=== PATIENT | female | born 1940 | race Caucasian/White ===

== ENCOUNTER 2021-04-06 15:00 | Outpatient (RCR) | payer MEDICARE, SELFPAY ==
--- NOTE | 2021-02-18 16:17 | MHC.PT.EP ---
[facility] [place] Office [place] Office [place] Office [address] Chen Nguyen [address] [phone] F: [phone] F: [phone] F: [phone] F: [phone] Physical Therapy Plan of Care Date of Evaluation: Date of Surgery: N/A Diagnosis: diabetes mellitus with advanced peripheral neuropathy gait and balance training Assessment: pt w/ subjective reports of B LE pain, numbness, and tingling secondary to DM II. pt also presents w/ significant weakness and poor functional mobility secondary to lack of physical activity. pt w/ a history of frequent falls secondary to circumstance and poor balance. pt presents to physical therapy with pain, decreased range of motion, decreased strength, impaired functional mobility, impaired postural awareness, and gait deviations. pt is a fair candidate for skilled PT due to age, potential remediation of impairments, typical disease/condition progression and prognosis, comorbidities, and motivation. pt would benefit from tailored strengthening and stretching exercise program, functional training, gait training, postural re-training, neuromuscular re-education, modalities as needed for pain, equipment safety demonstration. Frequency and Duration: The patient will be seen 2x/wk for 5 wks Short Term Goals: pt will be I w/ HEP to promote self-management of condition. pt will improve B quad strength by 1 MMT grade to promote ease in sit to stand transfer from sitting surface. pt will participate in 5xSTS and TUG to determine baseline fall risk severity. [employer] Worker Goals: pt will ambulate 5x50' to promote household ambulatory distances w/ LRAD. pt will perform STS transfer to LRAD mod I to promote functional independence. Treatment Plan: Modalities to reduce pain, spasms and effusion. Manual therapy to restore motion and function. Therapeutic exercise to improve strength and flexibility. Neuromuscular re-education for posture and balance. Therapeutic activities to return to functional activities of daily living. Electronically signed by: Gretchen Solano PT, DPT Please sign and return to therapist. Thank you for your referral.
--- NOTE | 2021-04-29 09:36 | MHC.PT.DC ---
[facility] [place] Office [place] Office [place] Office [address] Chen Nguyen 140 [facility] [phone] F: [phone] F: [phone] F: [phone] F: [phone] Physical Therapy Discharge Report Diagnosis: diabetes mellitus with advanced peripheral neuropathy gait and balance training Date of Surgery: N/A Date of Evaluation: 02/18/21 Date of Discharge: 04/29/21 Treatments to Date: 8 Cancellations to Date: 5 No Shows to Date: 2 Discharge Status: Visit Non-compliance Discharge Summary: The patient was starting to notice an improvement in her functional mobility. She would have poor carryover of transfer training techniques and gait mechanics from session to session. She required frequent cueing for sequencing and avoiding plopping back into the chair. She has not been seen in this office for several weeks as a result of many cancellations and no shows. She is discharged from this plan of care due to [facility]'s attendance policy. Electronically signed by: Gretchen Solano PT, DPT Please sign and return to therapist. Thank you for your referral.
== END 2021-04-29 09:36 | disposition home or self-care (01) ==
LOC: HO.PT 15:00
PROVIDERS: PCP Internal Medicine Pulmonary Disease; Visit Provider Psychiatry & Neurology Neurology
DX: E11.42 Type 2 diabetes mellitus with diabetic polyneuropathy (principal)
CPT/HCPCS: 97110; 97112; 97116; 97162; 97530

== ENCOUNTER 2021-07-06 13:20 | Outpatient (REF) | payer MEDICARE, SELFPAY ==
[2021-07-06 16:15] LABS: Hemoglobin 12.9 g/dl (12.0-16.0); Mean Corpuscular HGB Conc 32.3 g/dl (31.0-35.0); Mean Corpuscular Hemoglobin 29.1 pg (27.0-33.0); Mean Corpuscular Volume 90.3 fL (80.0-98.0); Mean Platelet Volume 11.3 fL (9.4-12.3); Platelet Count 248 X10*3/uL (160-400); Red Blood Count 4.43 X10*6/uL (4.20-5.50); Red Cell Distribution Width 14.1 % (11.0-16.0); White Blood Count 6.7 X10*3/uL (4.8-10.8)
[2021-07-06 16:23] LABS: Estimated Average Glucose 137 mg/dL; Hemoglobin A1c % 6.4 %
[2021-07-06 16:28] LABS: Alanine Aminotransferase 15 U/L (0-31); Albumin Level 3.9 g/dL (3.5-5.0); Alkaline Phosphatase 86 U/L (39-117); Anion Gap 14 (12-20); Aspartate Amino Transferase 21 U/L (5-31); Bilirubin Total 0.9 mg/dL (0.0-1.0); Blood Urea Nitrogen 29 mg/dL (9-16); Carbon Dioxide 26 mmol/L (22-29); Chloride 102 mmol/L (96-108); Cholesterol 219 mg/dL; Estimated Glomerular Filt Rate 34; Glucose Fasting 120 mg/dL (60-99); HDL Cholesterol 51 mg/dL; LDL Cholesterol Calculated 139 mg/dl; Potassium 3.5 mmol/L (3.3-5.1); Sodium 138 mmol/L (135-145); Triglycerides 147 mg/dL
[2021-07-06 16:49] LABS: TSH reflex Free T4 0.85 uIU/mL (0.32-4.0)
== END 2021-07-06 13:21 | disposition home or self-care (01) ==
LOC: HO.HMGCLDS 13:20
PROVIDERS: PCP Internal Medicine; Visit Provider Internal Medicine
DX: E03.9 Hypothyroidism, unspecified (principal); I10 Essential (primary) hypertension; E11.9 Type 2 diabetes mellitus without complications
CPT/HCPCS: 36415; 80053; 80061; 83036; 84443; 85027

== ENCOUNTER 2021-07-11 10:42 | Outpatient (REF) | payer MEDICARE, SELFPAY ==
[2021-07-11 14:13] LABS: Vitamin D 25-OH Total 31.3 ng/mL (>30)
[2021-07-11 14:29] LABS: Vitamin B12 258 pg/mL (200-900)
== END 2021-07-11 10:43 | disposition home or self-care (01) ==
LOC: HO.HMGCLDS 10:42
PROVIDERS: Visit Provider Internal Medicine
DX: E53.8 Deficiency of other specified B group vitamins (principal); E55.9 Vitamin D deficiency, unspecified
CPT/HCPCS: 36415; 82306; 82607

== ENCOUNTER 2021-10-12 15:05 | Outpatient (REF) | payer MEDICARE, SELFPAY ==
[2021-10-12 16:40] LABS: Hematocrit 36.7 % (37.0-47.0); Hemoglobin 11.7 g/dl (12.0-16.0); Mean Corpuscular HGB Conc 31.9 g/dl (31.0-35.0); Mean Corpuscular Volume 90.8 fL (80.0-98.0); Mean Platelet Volume 10.5 fL (9.4-12.3); Platelet Count 259 X10*3/uL (160-400); Red Blood Count 4.04 X10*6/uL (4.20-5.50); Red Cell Distribution Width 13.4 % (11.0-16.0); White Blood Count 4.9 X10*3/uL (4.8-10.8)
[2021-10-12 16:55] LABS: Estimated Average Glucose 128 mg/dL; Hemoglobin A1c % 6.1 %
[2021-10-12 16:56] LABS: Alanine Aminotransferase 12 U/L (0-31); Albumin Level 3.7 g/dL (3.5-5.0); Alkaline Phosphatase 77 U/L (39-117); Anion Gap 14 (12-20); Aspartate Amino Transferase 19 U/L (5-31); Bilirubin Total 0.6 mg/dL (0.0-1.0); Blood Urea Nitrogen 15 mg/dL (9-16); Calcium 9.5 mg/dL (8.4-10.2); Carbon Dioxide 26 mmol/L (22-29); Chloride 106 mmol/L (96-108); Cholesterol 228 mg/dL; Estimated Glomerular Filt Rate 54; Glucose Fasting 116 mg/dL (60-99); HDL Cholesterol 51 mg/dL; LDL Cholesterol Calculated 151 mg/dl; Potassium 4.5 mmol/L (3.3-5.1); Sodium 141 mmol/L (135-145); Total Protein 6.4 g/dL (6.5-8.0); Triglycerides 134 mg/dL
== END 2021-10-12 15:06 | disposition home or self-care (01) ==
LOC: HO.HMGCLDS 15:05
PROVIDERS: PCP Internal Medicine; Visit Provider Internal Medicine
DX: E03.9 Hypothyroidism, unspecified (principal); I12.9 Hypertensive chronic kidney disease with stage 1 through stage 4 chronic kidney disease, or unspecified chronic kidney disease; N18.30 Chronic kidney disease, stage 3 unspecified
CPT/HCPCS: 36415; 80053; 80061; 83036; 85027

== ENCOUNTER 2022-03-31 13:06 | Outpatient (REF) | payer MEDICARE, SELFPAY ==
[2022-03-31 13:48] LABS: MANUAL DIFF FLAG NO
[2022-03-31 13:53] LABS: Basophils Absolute Auto 0.1 X10*3/uL (0.0-0.2); Eosinophils Absolute Auto 0.2 X10*3/uL (0.0-0.4); Eosinophils Percent Auto 4.8 % (0-4); Hematocrit 37.8 % (37.0-47.0); Hemoglobin 12.1 g/dl (12.0-16.0); Imm Gran Abs Auto 0.02 X10*3/uL (0.00-0.03); Imm Gran Pct Auto 0.4 % (0.0-0.4); Lymphocytes Percent Auto 20.2 % (20-40); Mean Corpuscular Hemoglobin 28.7 pg (27.0-33.0); Mean Corpuscular Volume 89.8 fL (80.0-98.0); Mean Platelet Volume 10.7 fL (9.4-12.3); Monocytes Absolute Auto 0.4 X10*3/uL (0.1-1.2); Monocytes Percent Auto 8.5 % (2-11); Neutrophils Absolute Auto 3.3 x10*3/uL (2.0-8.3); Neutrophils Percent Auto 65.1 % (45-73); Platelet Count 268 X10*3/uL (160-400); Red Blood Count 4.21 X10*6/uL (4.20-5.50); Red Cell Distribution Width 13.7 % (11.0-16.0)
[2022-03-31 14:01] LABS: Estimated Average Glucose 146 mg/dL; Hemoglobin A1c % 6.7 %
[2022-03-31 14:17] LABS: Alanine Aminotransferase 14 U/L (0-31); Alkaline Phosphatase 74 U/L (39-117); Anion Gap 16 (12-20); Aspartate Amino Transferase 20 U/L (5-31); Bilirubin Total 0.7 mg/dL (0.0-1.0); Blood Urea Nitrogen 12 mg/dL (9-16); Calcium 9.1 mg/dL (8.4-10.2); Carbon Dioxide 24 mmol/L (22-29); Chloride 107 mmol/L (96-108); Cholesterol 232 mg/dL; Estimated Glomerular Filt Rate > 60; Glucose Fasting 143 mg/dL (60-99); HDL Cholesterol 63 mg/dL; Iron 81 mcg/dL (30-160); LDL Cholesterol Calculated 140 mg/dl; Percent Iron Saturation 20 % (15-50); Potassium 4.1 mmol/L (3.3-5.1); Sodium 143 mmol/L (135-145); Total Iron Binding Capacity 413 mcg/dL (228-428); Total Protein 6.8 g/dL (6.5-8.0); Triglycerides 148 mg/dL; Unsaturated Iron Binding 332 ug/dL
[2022-03-31 14:37] LABS: TSH reflex Free T4 1.77 uIU/mL (0.32-4.0); Vitamin D 25-OH Total 28.4 ng/mL (>30)
[2022-03-31 15:08] LABS: Folate > 20.0 ng/mL (> or = 4.0); Vitamin B12 296 pg/mL (200-900)
== END 2022-03-31 13:07 | disposition home or self-care (01) ==
LOC: HO.HMGCLDS 13:06
PROVIDERS: PCP Internal Medicine; Visit Provider Internal Medicine
DX: I12.9 Hypertensive chronic kidney disease with stage 1 through stage 4 chronic kidney disease, or unspecified chronic kidney disease (principal); E11.22 Type 2 diabetes mellitus with diabetic chronic kidney disease; N18.30 Chronic kidney disease, stage 3 unspecified; E53.8 Deficiency of other specified B group vitamins; E55.9 Vitamin D deficiency, unspecified; E03.9 Hypothyroidism, unspecified
CPT/HCPCS: 36415; 80053; 80061; 82306; 82607; 82746; 83036; 83540; 84443; 85025

== ENCOUNTER 2022-04-10 14:00 | Outpatient (RCR) | payer MEDICARE, SELFPAY ==
--- NOTE | 2022-03-01 15:12 | MHC.PT.EP ---
[facility] [place] Office [place] Office [place] Office [address] Chen Nguyen [address] [phone] F: [phone] F: [phone] F: [phone] F: [phone] Physical Therapy Plan of Care Date of Evaluation: Date of Surgery: n/a Diagnosis: other abnormalities of gait and mobility Assessment: Patient is an 81 year old female presenting to PT with complaints of gait and balance problems. Pt reports onset of pain began worsening about 1 year ago due to insidious onset. She presents today with impairments in pain, general LE strength, gait speed and mechanics, balance. Pt's current occupation is retired, with baseline physical activities including ambulation, transfers, ADLs. Pt expresses superintendent terminal goal of feeling normal , and is motivated to work towards this in PT. Clinical presentation today is most consistent with signs and sx associated with impairments in balance and gait and pt will benefit from skilled PT to address the following problems and impairments noted upon evaluation: pain, general LE strength, gait speed and mechanics, balance. These problems limit the patient with the following functional activities: ambulation, transfers, ADLs. The prescribed treatment plan of care is medically necessary. Co-morbidities of HTN, T2DM, fall risk were identified and taken into considerations of plan of care. Pt was educated on HEP, role of PT, prognosis, POC. Frequency and Duration: The patient will be seen 2 x week x 4 weeks Short Term Goals: Pt will demonstrate improved LE strength by 1/3 grade in 2 weeks. Pt will demonstrate ability to stand with NBOS and min sway for 30 sec in 2 weeks. Pt will demonstrate ability to violin maker hand modified tandem with CS x 30 sec in 2 weeks. Senior Living Goals: Pt will demonstrate improved DGI score by 3 points for decreased risk of falls in 4 weeks. Pt will demonstrate improved TUG score by 5 seconds on average in 4 weeks for decreased risk of falls. Pt will demonstrate ability to consistently stand from a chair on her first attempt to demonstrate improved general LE strength in 4 weeks. Treatment Plan: Modalities to reduce pain, spasms and effusion. Manual therapy to restore motion and function. Therapeutic exercise to improve strength and flexibility. Neuromuscular re-education for posture and balance. Therapeutic activities to return to functional activities of daily living. Electronically signed by: Melissa Cifuentes, PT, DPT, ATC Please sign and return to therapist. Thank you for your referral.
--- NOTE | 2022-04-18 14:19 | MHC.PT.DC ---
[facility] [place] Office [place] Office [place] Office [address] Chen Nguyen [address] [phone] F: [phone] F: [phone] F: [phone] F: [phone] Physical Therapy Discharge Report Diagnosis: other abnormalities of gait and mobility Date of Surgery: n/a Date of Evaluation: 03/01/22 Date of Discharge: 04/18/22 Treatments to Date: 6 Cancellations to Date: 3 No Shows to Date: 0 Discharge Status: Improved Function Discharge Summary: Pt cancelled her last scheduled appointment due to being sick. Plan for last visit was d/c and pt stating over the phone she is ready for d/c. Electronically signed by: Melissa Cifuentes, PT, DPT, ATC Please sign and return to therapist. Thank you for your referral.
== END 2022-04-18 14:19 | disposition home or self-care (01) ==
LOC: HO.PTCHIC 14:00
PROVIDERS: PCP Internal Medicine; Visit Provider Internal Medicine
DX: R26.89 Other abnormalities of gait and mobility (principal)
CPT/HCPCS: 97110; 97112; 97162; 97530

== ENCOUNTER 2022-04-22 10:07 | Outpatient (REF) | payer MEDICARE, SELFPAY ==
--- NOTE | ~2022-04-22 | XR_ITS ---
EXAMINATION: XR CHEST CLINICAL INFORMATION: Acute bronchitis COMPARISON: None TECHNIQUE: 2 views of the chest were obtained. FINDINGS: Cardiac silhouette is normal in size. Mild fullness of the right perihilar region is likely vascular in nature. The lungs are well aerated. There is no lobar consolidation. No pleural effusion or pneumothorax. Moderate degenerative changes of the spine. XR/XR chest 2V IMPRESSION: No acute pulmonary pathology.
[2022-04-22 10:28] LABS: Binax Internal Control QC Valid; Binax Now Covid-19 Ag Negative (Negative)
== END 2022-04-22 10:08 | disposition home or self-care (01) ==
LOC: HO.HMGCLDS 10:07
PROVIDERS: PCP Internal Medicine; Visit Provider Physician Assistant
DX: J20.8 Acute bronchitis due to other specified organisms (principal); Z20.822 Contact with and (suspected) exposure to COVID-19
CPT/HCPCS: 71046; 87811; C9803

== ENCOUNTER 2022-05-26 12:53 | Outpatient (REF) | payer MEDICARE, SELFPAY ==
[2022-05-26 14:35] LABS: Estimated Average Glucose 143 mg/dL; Hemoglobin A1c % 6.6 %
[2022-05-26 14:56] LABS: Alanine Aminotransferase 12 U/L (0-31); Albumin Level 3.7 g/dL (3.5-5.0); Alkaline Phosphatase 76 U/L (39-117); Anion Gap 13 (12-20); Aspartate Amino Transferase 17 U/L (5-31); Bilirubin Total 0.7 mg/dL (0.0-1.0); Blood Urea Nitrogen 13 mg/dL (9-16); Calcium 9.8 mg/dL (8.4-10.2); Carbon Dioxide 26 mmol/L (22-29); Chloride 103 mmol/L (96-108); Cholesterol 239 mg/dL; Estimated Glomerular Filt Rate 56; Glucose Fasting 151 mg/dL (60-99); HDL Cholesterol 55 mg/dL; LDL Cholesterol Calculated 143 mg/dl; Sodium 138 mmol/L (135-145); Total Protein 6.5 g/dL (6.5-8.0); Triglycerides 207 mg/dL; Vitamin D 25-OH Total 25.1 ng/mL (>30)
== END 2022-05-26 12:54 | disposition home or self-care (01) ==
LOC: HO.HMGCLDS 12:53
PROVIDERS: PCP Internal Medicine; Visit Provider Internal Medicine
DX: I12.9 Hypertensive chronic kidney disease with stage 1 through stage 4 chronic kidney disease, or unspecified chronic kidney disease (principal); E11.22 Type 2 diabetes mellitus with diabetic chronic kidney disease; N18.30 Chronic kidney disease, stage 3 unspecified
CPT/HCPCS: 36415; 80053; 80061; 82306; 83036

== ENCOUNTER 2022-07-17 15:24 | Outpatient (REF) | payer MEDICARE, SELFPAY ==
--- NOTE | ~2022-07-17 | XR_ITS ---
EXAMINATION: XR ANKLE, RIGHT CLINICAL INFORMATION: Pain COMPARISON: None TECHNIQUE: AP, lateral, and mortise views of the right ankle. FINDINGS: Small ossific densities are seen adjacent to the tip of the lateral malleolus, possibly associated with chronic injury. No definite acute fractures are seen. Small osteophytes along the ankle mortise. Possible intra-articular body at the medial clear space measuring 0.4 cm. Vascular calcifications are noted. No ankle joint effusion. The soft tissues appear unremarkable otherwise. XR/XR ankle RT min 3V IMPRESSION: No acute fracture or malalignment. Mild degenerative changes. Possible intra-articular body at the medial clear space.
== END 2022-07-17 15:25 | disposition home or self-care (01) ==
LOC: HO.HMGCX 15:24
PROVIDERS: PCP Internal Medicine; Visit Provider Internal Medicine
DX: M25.571 Pain in right ankle and joints of right foot (principal)
CPT/HCPCS: 73610

== ENCOUNTER → 2022-07-25 13:44 | Outpatient (REF) | payer MEDICARE, SELFPAY ==
--- NOTE | 2022-07-25 13:47 | CA_ITS ---
Transthoracic Echocardiogram Patient (Last, First, Middle): Chrissy Bejarano Helen Gender: Female Date of : 1940 Age: 82 Procedure Date: 07/25/2022 Procedure Type: Transthoracic Echocardiogram Location: OP Height: 162.56 cm Weight: 90.72 kg BSA: 1.96 m2 Heart Rate: 71 bpm BP: 130 / 80 mmHg Jet Handler: PREET Referring MD: Gladys Trivedi MD Salmon Troll Fisher: Jean Pierre Dhillon MD Symptoms: R01.1 - Cardiac murmur, unspecified Study Quality: Fair ECG Rhythm: Sinus Conclusions: - 1. Normal LV systolic function with moderate LVH with impaired relaxation filling pattern 2. Mildly dilated left atrium 3. Moderate aortic stenosis with mean gradient of 22 mmHg 4. Normal RV systolic pressure 5. Mildly dilated ascending aorta 6. No pericardial effusion Findings Left Ventricle Normal left ventricular size and systolic function. There is moderately increased left ventricular wall thickness. The visually estimated ejection fraction is between 60-65%. Spectral Doppler is indicative of an impaired relaxation filling pattern. E/E prime ratio is between 8 and 15 consistent with indeterminate filling pressures. Right Ventricle Normal right ventricular cavity size and systolic function. Atria The left atrium is mildly dilated. Interatrial shunt cannot be excluded. The right atrium is likely dilated. Aortic Valve The aortic valve was not well visualized. There is moderate calcification of the aortic valve. There is moderate aortic valve stenosis. The mean gradient is 21 mmHg. There is mild aortic valve regurgitation. calculated dimensionless index is 0.35 with a calculated valve area of 0.96 centimeters sq, discrepancy most likely due to measured LVOT diameter at 1.8 cm which is most likely related to technical factors Mitral Valve There is mild anterior and posterior mitral leaflet thickening. There is mild mitral annular calcification. There is mild mitral valve regurgitation. There is no mitral valve stenosis. Pulmonic Valve The pulmonic valve was not well visualized. Tricuspid Valve Likely normal tricuspid valve structure and function. There is trace tricuspid valve regurgitation. The right ventricular systolic pressure is normal. The right ventricular systolic pressure is 14 mmHg. Normal right atrial pressure. There is no evidence of pulmonary hypertension. Great Vessels The pulmonary artery was not well visualized. There is mild dilatation of the ascending aorta measuring 3.80 cm. Venous The inferior vena cava is normal in size and collapses greater than 50% with inspiration. Pericardium/Pleural There is no evidence of pericardial effusion. Prior Study Comparison No prior study available for comparison. Measurements 2D Linear Measurements IVSd: 1.66 0.6-0.9/0.6-1.0 cm LVIDd: 3.87 3.9-5.3/4.2-5.9 cm LVIDd Index: 1.97 2.4-3.2/2.2-3.1 cm/m2 LVIDs: 2.73 2.0-3.6 cm LVPWd: 1.55 0.7-1.1 cm LA Diam: 4.40 2.7-3.8/3.0-4.0 cm LAIDs Index: 2.24 1.5-2.3 cm/m2 LV Mass: 308.81 67-162/88-224 g LV Mass Index: 157.56 43-95/49-115 g/m2 LVOT Diam: 1.80 3.0+(-)1.3 cm 2D Systolic Function EF 4C: 64.00 >55% EF 2C: 56.70 >55% EF BiP: 61.30 >55% Mitral Valve MV Pk E: 0.99 MV PK A: 0.95 MV Decel Time: 240.00 E/A: 1.00 E'Lateral: 4.29 E'Medial: 4.03 E/E' Med: 24.60 E/E' Lat: 23.10 PHT: 70.00 MVA PHT: 3.14 Decel [place]: 4.14 Aortic Valve AoV Pk [place]: 3.09 AoV Mn [place]: 2.11 AoV VTI: 0.65 AoV Pk Grad: 38.00 Aov Mn Grad: 21.00 MEHDI Cont.VTI: 0.95 AI Pk [place]: 4.03 AI [place]: 2.39 LVOT LVOT Pk [place]: 1.10 LVOT Mn [place]: 0.79 LVOT VTI: 0.24 LVOT Pk Grad: 5.00 LVOT Mn Grad: 3.00 LVOT Diam: 1.80 LVOT Area: 2.54 Diastolic Function MV Pk E: 0.99 MV Pk A: 0.95 E/A: 1.00 E'Medial: 4.03 E/E' Med: 24.60 E' Laterial: 4.29 E/E' Lat: 23.10 Right Ventricle TAPSE (mm): 18.00 TVS' [place]: 13.70 Tricuspid Valve TR Pk [place]: 1.68 TR Pk Grad: 11.00 RA Press: 3.00 RVSP: 14.00 Great Vessels Aorta Sinus of Valsalva: 3.30 2.0-3.5 cm Ao Asc: 3.80 2.1-3.4 cm Pulmonary Valve PV Pk Kam[place]: 1.32 Peak PV Grad: 7.00 Updated in Other Vendor System with Status of Final Jean Pierre Dhillon MD electronically signed on 07/25/2022 4:56:11 PM with status of Final
== END ==
LOC: HO.CARD 13:44
PROVIDERS: PCP Internal Medicine; Visit Provider Internal Medicine
DX: R01.1 Cardiac murmur, unspecified (principal)
CPT/HCPCS: 93306

== ENCOUNTER 2022-11-23 12:38 | Outpatient (REF) | payer MEDICARE, SELFPAY ==
--- NOTE | ~2022-11-23 | XR_ITS ---
EXAMINATION: XR BILATERAL HIPS WITH AP PELVIS CLINICAL INFORMATION: Pain in the right hip COMPARISON: None available. TECHNIQUE: AP view of the pelvis and single views of each hip were obtained. FINDINGS: The bones and soft tissues are normal. No fracture. Sacroiliac and hip joints are normal. Pubic symphysis is normal. No abnormal soft tissue calcifications. Partially visualized lumbar spine demonstrate degenerative changes. There are incidental findings of radiopaque markers of anterior abdominal wall mesh XR/XR hips ROE min 3V IMPRESSION: No abnormal findings in hips
== END 2022-11-23 12:39 | disposition home or self-care (01) ==
LOC: HO.HMGCX 12:38
PROVIDERS: PCP Internal Medicine; Visit Provider Internal Medicine
DX: M25.552 Pain in left hip (principal); M25.551 Pain in right hip
CPT/HCPCS: 73522

== ENCOUNTER 2023-03-23 10:21 | Outpatient (AMB) | payer MEDICARE, SELFPAY ==
--- NOTE | 2023-03-23 10:27 | MHC.PC.OV ---
Vital Signs 03/23/23 10:28 Height 5 ft 4 in Weight 193 lb 4 oz BMI 33.2 BP 124/84 Blood Pressure Location Lt brachial Position Sitting Pulse 72 Pulse Source Pulse Oximeter Pulse Oximetry (%) 93 Oxygen Delivery Method Room Air Intake Visit Reasons: transfer from venu, high bp Intake Note: Patient is here today for transfer of care from Dr Trivedi. Ammonia Still Operator Required: No Screen Printing Supervisor: Present Accompanied by: Brother inlleida Allergies No Known Allergies Allergy (Mild, Verified 03/23/23 10:52) NKA Medication List - Last Reconciled 03/23/23 by NANDA Gallagher calcium carbonate-vitamin D3 500 mg-5 mcg (200 unit) (Calcium 500 + D) 1 tab PO DAILY cholecalciferol (vitamin D3) 50 mcg PO DAILY CPAP (CPAP Machine/Device) As directed-Auto setting 8-20, heated tube and humidification fluticasone propionate 50 mcg/actuation 2 sprays intranasal DAILY folic acid 1 mg PO DAILY lancets (OneTouch UltraSoft Lancets) Test blood sugar once a day levothyroxine (Euthyrox) 112 mcg PO BEDTIME lisinopril 5 mg PO DAILY metformin 500 mg PO DAILY OneTouch Ultra Test (blood sugar diagnostic) test blood sugar once a day NS paroxetine HCl 30 mg PO DAILY rosuvastatin (Crestor) 5 mg PO DAILY Tobacco use date assessed: 03/23/23 Fall risk assessment: No Falls in past year Last assessed Fall Risk: 03/23/23 Dental Screening Dental Screen Date: 03/23/23 Did you have a dental visit in the last 12 months?: No Did you have a dental problem in the last 6 months where you did not have access to dental care?: No Was dental information given to patient?: No HPI HPI Comments History of Present Illness Details 83-year-old female past medical history significant for type 2 diabetes mellitus, hypertension, hypothyroidism, vitamin B12 deficiency, CKD, hyperlipidemia, heart murmur echocardiogram completed in December showed moderate aortic stenosis and poor balance. Patient presents today for transfer of care from Dr. Trivedi. Patient reports today that she continues to have poor balance and utilizes a walker daily, offered referral to physical therapy however patient declines at this time patient reports that she has completed physical therapy in the past. Patient made aware that fasting lab work reports ordered to follow-up on CBC, CMP fasting lipid panel, TSH and hemoglobin A1c. [facility] Medical History (Updated 03/23/23 @ 11:16 by NANDA Gallagher) Heart murmur CKD (chronic kidney disease) stage 3, GFR 30-59 ml/min Vitamin D deficiency Vitamin B 12 deficiency Poor balance Hypothyroidism HTN (hypertension) DM type 2 (diabetes mellitus, type 2) Surgical History S/P repair of inguinal hernia Hx of decompressive lumbar laminectomy H/O: hysterectomy S/P colon resection Family History Father Prostate cancer Mother Hypertension Social History (Updated 03/23/23 @ 10:34 by SHEBA Andrade) Household Members Other:: lives alone, does not drive, no children Housing: Other Housing Other:: [facility] Alcohol intake: never Patient Tobacco Use Status: Never used Tobacco e-Cigarette/Vaping Use: Never Used Second Hand Smoke Exposure: No service: No Current occupational status: retired Cognitive needs: Yes (walker ) Hearing needs: No Vision needs: Yes (glasses) Questionnaire Thrive Questionnaire Date Thrive assessed: 11/30/22 MUMTAZ-7 AMB Questionnaire MUMTAZ-7 Date MUMTAZ - 7 assessed: 11/30/22 Feeling nervous, anxious, or on edge: 1 = Several days Not being able to stop or control worryin = More than half the days Worrying too much about different things: 2 = More than half the days Trouble relaxin = More than half the days Being so restless that it is hard to sit still: 1 = Several days Becoming easily annoyed or irritable: 1 = Several days Feeling afraid as if something awful might happen: 2 = More than half the days Total MUMTAZ-7 score (0-4 normal; 5-9 mild; 10-14 moderate; 15-21 severe): 11 Source: Developed by Drs. Lazarus Mathis, Jaqueline Leavitt, Finn Delgado and colleagues, with an educational atif from [employer] MUMTAZ-7 Assessment Billing MUMTAZ-7 Assessment Tool: MUMTAZ-7 Assessment 86320 Review of Systems Const Denies chills, Denies fatigue, Denies fever(s) and Denies poor appetite Eyes Denies no additional complaints ENT Reports Normal hearing present Card Denies chest pain, Denies syncope, Denies rapid heart rate and Denies dyspnea Resp Denies cough and Denies dyspnea GI Denies change in stool character, Denies constipation, Denies diarrhea, Denies nausea and Denies vomiting Denies urinary frequency, Denies dysuria and Denies urinary urgency Neuro Reports Normal hearing present, Denies confusion and Denies syncope Psych Denies confusion Endo Denies fatigue Physical exam (Primary Care) Vital Signs: Last Vital Signs Pulse 72 03/23/23 10:28 BP 124/84 03/23/23 10:28 Pulse Ox 93 03/23/23 10:28 Oxygen Delivery Method Room Air 03/23/23 10:28 BMI result Body Mass Index 33.2 Tobacco/Smoking Status: Tobacco use Status Tobacco use date assessed 03/23/23 03/23/23 10:37 Patient Tobacco Use Status Never used Tobacco 03/23/23 10:37 e-Cigarette/Vaping Use Never Used 03/23/23 10:37 Thrive Assessment: Date of Thrive Assessment Date Thrive assessed 11/30/22 03/23/23 10:37 Const General: No confusion Orientation/consciousness: No confusion HENMT Head: Yes normocephalic and Yes atraumatic Eyes Conjunctivae: conjunctivae normal Chest Chest palpation & inspection: normal inspection of the chest Resp Effort & Inspection: normal respiratory effort Auscultation: clear to auscultation bilaterally, no crackles, no rhonchi and no wheezes Cardio Rate: regular rate Rhythm: regular rhythm Heart sounds: S1 normal heart sound present and S2 normal heart sound present GI Inspection: Yes normal to inspection Neuro General: No confusion Cranial nerves: Yes Normal hearing present Extrem General: No edema Assessment and Plan Assessment & Plan (1) DM type 2 (diabetes mellitus, type 2): Code(s): E11.9 - Type 2 diabetes mellitus without complications Plan: Continue on metformin 500 mg daily. Hemoglobin A1c ordered. Patient educated to decrease the amount of carbohydrate intake such as pasta, bread, rice and potatoes are all sugar in addition to the sweet stuff. Remember that fruits are good but they also have sugar. (2) HTN (hypertension): Code(s): I10 - Essential (primary) hypertension Plan: Continue on lisinopril 5 mg daily. Follow low-salt diet and exercise. Blood pressure below goal in office today. (3) Hypothyroidism: Comment: Continue levothyroxine Code(s): E03.9 - Hypothyroidism, unspecified Plan: Continue on levothyroxine. TSH ordered. (4) Poor balance: Code(s): R26.89 - Other abnormalities of gait and mobility Plan: Offered referral to physical therapy however patient declines at this time. (5) Hyperlipemia: Code(s): E78.5 - Hyperlipidemia, unspecified Plan: Fasting lipid panel ordered. Continue on rosuvastatin. Avoid fried foods, chicken skin, eggs, butter,margarine, pastries and?? red meat. (6) Moderate aortic stenosis by prior echocardiogram: Code(s): I35.0 - Nonrheumatic aortic (valve) stenosis Plan: Noted on echocardiogram back in June, referral entered to cardiology. Plan Follow-up in 3 months. Orders: Orders Comprehensive [place]. Panel Fast Today E11.9 - Type 2 diabetes mellitus without complications Lipid Panel Today Z13.220 - Encounter for screening for lipoid disorders TSH reflex Free T4 Today Z13.29 - Encounter for screening for other suspected endocrine disorder Vitamin B12 and Folate Today Z13.21 - Encounter for screening for nutritional disorder Complete Blood Count Auto Diff Today Z13.0 - Encounter for screening for diseases of the blood and blood-forming organs and certain disorders involving the immune mechanism Vitamin D 25-OH Total Today Z13.21 - Encounter for screening for nutritional disorder Hemoglobin A1c Today E11.9 - Type 2 diabetes mellitus without complications Coding Level of Care Code Est Pt Level 4 (99065) Diagnoses DM type 2 (diabetes mellitus, type 2) E11.9 HTN (hypertension) I10 Hypothyroidism E03.9 Poor balance R26.89 Hyperlipemia E78.5 Moderate aortic stenosis by prior echocardiogram I35.0 Additional Codes MUMTAZ-7 Assessment Billing - MUMTAZ-7 Assessment Tool: MUMTAZ-7 Assessment [id number] ([id number])
[2023-03-23 10:28] VITALS: BP 124/84; PULSE 72; O2SAT 93; BMI 33.2
== END 2023-03-23 11:12 | disposition home or self-care (01) ==
PROVIDERS: PCP Internal Medicine; Visit Provider Nurse Practitioner Family
DX: E11.9 Type 2 diabetes mellitus without complications (principal); I10 Essential (primary) hypertension; E03.9 Hypothyroidism, unspecified; R26.89 Other abnormalities of gait and mobility; E78.5 Hyperlipidemia, unspecified; I35.0 Nonrheumatic aortic (valve) stenosis
CPT/HCPCS: 99214

== ENCOUNTER 2023-03-23 11:25 | Outpatient (REF) | payer MEDICARE, SELFPAY ==
[2023-03-23 11:41] LABS: MANUAL DIFF FLAG NO
[2023-03-23 12:13] LABS: Basophils Absolute Auto 0.1 X10*3/uL (0.0-0.2); Basophils Percent Auto 1.1 % (0-2); Eosinophils Absolute Auto 0.3 X10*3/uL (0.0-0.4); Eosinophils Percent Auto 5.7 % (0-4); Hemoglobin 13.2 g/dl (12.0-16.0); Imm Gran Abs Auto 0.02 X10*3/uL (0.00-0.03); Imm Gran Pct Auto 0.4 % (0.0-0.4); Lymphocytes Absolute Auto 1.1 X10*3/uL (1.2-4.9); Lymphocytes Percent Auto 20.8 % (20-40); Mean Corpuscular HGB Conc 32.2 g/dl (31.0-35.0); Mean Corpuscular Hemoglobin 29.6 pg (27.0-33.0); Mean Corpuscular Volume 91.9 fL (80.0-98.0); Mean Platelet Volume 10.7 fL (9.4-12.3); Monocytes Absolute Auto 0.6 X10*3/uL (0.1-1.2); Monocytes Percent Auto 10.8 % (2-11); Neutrophils Absolute Auto 3.3 x10*3/uL (2.0-8.3); Neutrophils Percent Auto 61.2 % (45-73); Platelet Count 259 X10*3/uL (160-400); Red Blood Count 4.46 X10*6/uL (4.20-5.50); Red Cell Distribution Width 13.5 % (11.0-16.0); White Blood Count 5.3 X10*3/uL (4.8-10.8)
[2023-03-23 12:27] LABS: Estimated Average Glucose 134 mg/dL; Hemoglobin A1c % 6.3 % (<6.0)
[2023-03-23 12:47] LABS: Alanine Aminotransferase 9 U/L (0-31); Albumin Level 4.1 g/dL (3.5-5.0); Alkaline Phosphatase 67 U/L (39-117); Anion Gap 18 (12-20); Aspartate Amino Transferase 18 U/L (5-31); Bilirubin Total 0.5 mg/dL (0.0-1.0); Blood Urea Nitrogen 18 mg/dL (9-16); Calcium 9.6 mg/dL (8.4-10.2); Carbon Dioxide 25 mmol/L (22-29); Chloride 105 mmol/L (96-108); Cholesterol 183 mg/dL (<200); Estimated Glomerular Filt Rate > 60; Glucose Fasting 137 mg/dL (60-99); HDL Cholesterol 59 mg/dL (>40); LDL Cholesterol Calculated 105 mg/dL (<100); Potassium 3.9 mmol/L (3.3-5.1); Sodium 144 mmol/L (135-145); Total Protein 7.3 g/dL (6.5-8.0); Triglycerides 96 mg/dL (<150)
[2023-03-23 13:04] LABS: TSH reflex Free T4 6.44 uIU/mL (0.32-4.0); Vitamin D 25-OH Total 36.9 ng/mL (>30)
[2023-03-23 13:13] LABS: Folate 15.9 ng/mL (> or = 4.0); Vitamin B12 358 pg/mL (200-900)
[2023-03-23 13:44] LABS: Free T4 (Free Thyroxine) 1.01 ng/dL (0.71-1.85)
== END 2023-03-23 11:26 | disposition home or self-care (01) ==
LOC: HO.LAB 11:25
PROVIDERS: Visit Provider Nurse Practitioner Family
DX: E11.9 Type 2 diabetes mellitus without complications (principal); Z13.29 Encounter for screening for other suspected endocrine disorder; Z13.21 Encounter for screening for nutritional disorder; Z13.0 Encounter for screening for diseases of the blood and blood-forming organs and certain disorders involving the immune mechanism; Z13.220 Encounter for screening for lipoid disorders; E55.9 Vitamin D deficiency, unspecified
CPT/HCPCS: 36415; 80053; 80061; 82306; 82607; 82746; 83036; 84439; 84443; 85025

== ENCOUNTER 2023-05-30 11:59 | Outpatient (REF) | payer MEDICARE, SELFPAY ==
[2023-05-30 14:09] LABS: TSH reflex Free T4 2.45 uIU/mL (0.32-4.0)
== END 2023-05-30 12:00 | disposition home or self-care (01) ==
LOC: HO.HMGCLDS 11:59
PROVIDERS: PCP Nurse Practitioner Family; Visit Provider Nurse Practitioner Family
DX: E03.9 Hypothyroidism, unspecified (principal)
CPT/HCPCS: 36415; 84443

== ENCOUNTER 2023-06-05 11:03 | Outpatient (AMB) | payer MEDICARE, SELFPAY ==
[2023-06-05 11:07] VITALS: BP 140/78; PULSE 78; O2SAT 92; BMI 33.3
--- NOTE | 2023-06-05 11:07 | A.OFFPC_ITS ---
Vital Signs 06/05/23 11:07 Height 5 ft 4 in Weight 194 lb 4 oz BMI 33.3 BP 140/78 H Blood Pressure Location Lt brachial Position Sitting Pulse 78 Pulse Source Pulse Oximeter Pulse Oximetry (%) 92 Oxygen Delivery Method Room Air Intake Visit Reasons: Trouble sleeping Front Desk Lead Required: No Security Guard Dispatcher: Present Accompanied by: Brother in law Allergies No Known Allergies Allergy (Mild, Verified 06/05/23 11:12) NKA Tobacco use date assessed: 03/23/23 Fall risk assessment: 1 Fall in past year Last assessed Fall Risk: 06/05/23 Dental Screening Dental Screen Date: 06/05/23 Did you have a dental visit in the last 12 months?: No Did you have a dental problem in the last 6 months where you did not have access to dental care?: No Was dental information given to patient?: No HPI HPI Comments History of Present Illness Details 83-year-old female past medical history significant for type 2 diabetes mellitus, hypertension, hypothyroidism, vitamin B12 deficiency, CKD, hyperlipidemia, heart murmur echocardiogram completed in December showed moderate aortic stenosis and poor balance. Patient presents today for insomnia, pateint reports up all not and may fall alseep at 10am for 1 hour. Patient states follows good sleep hygiene routine with no improvement. Patient states due to not being able to fall sleep that she will not go lay down sometimes stool 06:00 as if she just lays in bed awake she gets very bored. Will trial patient on hydroxyzine for sleep and anxiety as she states she will sometimes wake up with her heart beating quickly. Patient states previously on zolpidem, lorazepam and gabapentin previously however this for all discontinued by previous PCP. 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 [facility] Medical History (Updated 06/05/23 @ 11:29 by NANDA Gallagher) Heart murmur CKD (chronic kidney disease) stage 3, GFR 30-59 ml/min Vitamin D deficiency Vitamin B 12 deficiency Poor balance Hypothyroidism HTN (hypertension) DM type 2 (diabetes mellitus, type 2) Surgical History S/P repair of inguinal hernia Hx of decompressive lumbar laminectomy H/O: hysterectomy S/P colon resection Family History Father Prostate cancer Mother Hypertension Social History Household Members Other:: lives alone, does not drive, no children Housing: Other Housing Other:: [facility] Alcohol intake: never Patient Tobacco Use Status: Never used Tobacco e-Cigarette/Vaping Use: Never Used Second Hand Smoke Exposure: No service: No Current occupational status: retired Cognitive needs: Yes (walker ) Hearing needs: No Vision needs: Yes (glasses) Questionnaire Thrive Questionnaire Date Thrive assessed: 11/30/22 MUMTAZ-7 AMB Questionnaire MUMTAZ-7 Date MUMTAZ - 7 assessed: 11/30/22 Source: Developed by Drs. Lazarus Mathis, Jaqueline Leavitt, Finn Delgado and colleagues, with an educational atif from [employer]. Review of Systems Const Denies chills, Denies fatigue, Denies fever(s) and Denies poor appetite Eyes Denies no additional complaints ENT Reports Normal hearing present Card Denies chest pain, Denies syncope, Denies rapid heart rate and Denies dyspnea Resp Denies cough and Denies dyspnea GI Denies change in stool character, Denies constipation, Denies diarrhea, Denies nausea and Denies vomiting Denies urinary frequency, Denies dysuria and Denies urinary urgency Neuro Reports Normal hearing present, Denies confusion and Denies syncope Psych Denies confusion Endo Denies fatigue Physical exam (Primary Care) Vital Signs: Last Vital Signs Pulse 78 06/05/23 11:07 BP 140/78 H 06/05/23 11:07 Pulse Ox 92 06/05/23 11:07 Oxygen Delivery Method Room Air 06/05/23 11:07 BMI result Body Mass Index 33.3 Tobacco/Smoking Status: Tobacco use Status Tobacco use date assessed 03/23/23 06/05/23 11:15 Patient Tobacco Use Status Never used Tobacco 06/05/23 11:15 e-Cigarette/Vaping Use Never Used 06/05/23 11:15 Thrive Assessment: Date of Thrive Assessment Date Thrive assessed 11/30/22 06/05/23 11:15 Const General: No confusion Orientation/consciousness: No confusion HENMT Head: Yes normocephalic and Yes atraumatic Eyes Conjunctivae: conjunctivae normal Chest Chest palpation & inspection: normal inspection of the chest Resp Effort & Inspection: normal respiratory effort Auscultation: clear to auscultation bilaterally, no crackles, no rhonchi and no wheezes Cardio Rate: regular rate Rhythm: regular rhythm Heart sounds: S1 normal heart sound present and S2 normal heart sound present GI Inspection: Yes normal to inspection Neuro General: No confusion Cranial nerves: Yes Normal hearing present Extrem General: No edema Assessment and Plan Assessment & Plan (1) Insomnia: Code(s): G47.00 - Insomnia, unspecified Plan: Will trial patient on hydroxyzine 25 mg at bedtime for sleep Patient advised to follow good sleep hygiene. If no improvement will consider starting patient back on low-dose zolpidem (2) Ankle pain, right: Code(s): M25.571 - Pain in right ankle and joints of right foot Plan: Previous x-ray showed mild degenerative changes. Patient advise can take [id number] Tylenol Arthritis and will send diclofenac cream as needed for pain (3) Poor balance: Code(s): R26.89 - Other abnormalities of gait and mobility Plan: Patient has previously reported unsteady gait for balance, recommended physical therapy in the past however patient declined at that time. Patient now states she is willing to try physical therapy if they are able to come to her house will place order for [facility] for home PT. (4) HTN (hypertension): Code(s): I10 - Essential (primary) hypertension (5) Hypothyroidism: Comment: Continue levothyroxine Code(s): E03.9 - Hypothyroidism, unspecified Plan: Continue on levothyroxine. Last TSH level within normal limits (6) Hyperlipemia: Code(s): E78.5 - Hyperlipidemia, unspecified Plan: Fasting lipid panel ordered continue on rosuvastatin Follow low-cholesterol diet LDL goal less than 100. (7) DM type 2 (diabetes mellitus, type 2): Code(s): E11.9 - Type 2 diabetes mellitus without complications Plan: Continue on metformin 500 mg daily. Repeat hemoglobin A1c ordered in 1 month Plan Keep scheduled follow-up in 1 month. Orders: Orders Complete Blood Count Auto Diff Today I10 - Essential (primary) hypertension Hemoglobin A1c Today E11.9 - Type 2 diabetes mellitus without complications Comprehensive [place]. Panel Fast 1 Month I10 - Essential (primary) hypertension Lipid Panel Today I10 - Essential (primary) hypertension Medications: New hydroxyzine HCl 25 mg PO BEDTIME PRN 30 tabs 0RF anxiety G47.00 - Insomnia, unspecified diclofenac sodium 1% (Aleve (diclofenac)) apply to single elbow, wrist or hand; for hand includes palm/fingers/back of hand 2 grams topical QID 100 grams 0RF G47.00 - Insomnia, unspecified, M25.571 - Pain in right ankle and joints of right foot Coding Level of Care Code Est Pt Level 4 (11502) Diagnoses Insomnia G47.00 Ankle pain, right M25.571 Poor balance R26.89 HTN (hypertension) I10 Hypothyroidism E03.9 Hyperlipemia E78.5 DM type 2 (diabetes mellitus, type 2) E11.9
== END 2023-06-05 11:45 | disposition home or self-care (01) ==
PROVIDERS: PCP Nurse Practitioner Family; Visit Provider Nurse Practitioner Family
DX: E11.69 Type 2 diabetes mellitus with other specified complication (principal); G47.00 Insomnia, unspecified; M25.571 Pain in right ankle and joints of right foot; R26.89 Other abnormalities of gait and mobility; I10 Essential (primary) hypertension; E03.9 Hypothyroidism, unspecified; E78.5 Hyperlipidemia, unspecified
CPT/HCPCS: 99214

== ENCOUNTER 2023-07-02 13:41 | Outpatient (AMB) | payer MEDICARE, SELFPAY ==
[2023-07-02 14:07] VITALS: BP 138/74; PULSE 66; BMI 33.7
--- NOTE | 2023-07-02 14:07 | A.OFFVIS_ITS ---
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/Aortic stenosis Intake Note: New patient has echo last year Butadiene Converter Utility Operator Required: No Intellectual Property Paralegal: Intellectual Property Paralegal Present Accompanied by: Spouse Allergies No Known Allergies Allergy (Mild, Verified 06/05/23 11:12) NKA Medication List - Last Reconciled 07/02/23 by Jean Pierre Dhillon MD calcium carbonate-vitamin D3 500 mg-5 mcg (200 unit) (Calcium 500 + D) 1 tab PO DAILY cholecalciferol (vitamin D3) 50 mcg PO DAILY CPAP (CPAP Machine/Device) As directed-Auto setting 8-20, heated tube and humidification diclofenac sodium 1% (Aleve (diclofenac)) 2 grams topical QID fluticasone propionate 50 mcg/actuation 2 sprays intranasal DAILY folic acid 1 mg PO DAILY hydroxyzine HCl 25 mg PO BEDTIME PRN lancets (OneTouch UltraSoft Lancets) Test blood sugar once a day levothyroxine (Euthyrox) 112 mcg PO DAILY lisinopril 5 mg PO DAILY metformin 500 mg PO DAILY OneTouch Ultra Test (blood sugar diagnostic) test blood sugar once a day NS paroxetine HCl 30 mg PO DAILY rosuvastatin (Crestor) 5 mg PO DAILY HPI HPI Comments History of Present Illness Details Thank you for referring Yumiko in cardiology consultation today for aortic stenosis management. She is 83-year-old female walks with a walker due to what appears to be back issues and in pain in the right lower extremity. She has as per her longstanding history of a murmur, obtain echocardiogram from 2012 at [facility] which showed calcific aortic all changes noted without any significant stenosis. Echocardiogram done again last year for murmur shows moderate aortic stenosis with normal LV systolic function. She has been referred here for further management of her aortic stenosis. She has longstanding history of hypertension, diabetes, hyperlipidemia, takes medicines for it. She says she does walk with help of a walker and can go her grocery sh opping without any exertional chest pain or shortness of breath. She does get lightheadedness but this is not necessarily exertional and has been present for many years. She has no history of orthopnea, PND, leg edema. She says she has poor sleep pattern and occasion nighttime feels fluttering in her chest. No prolonged irregular heartbeat or palpitations. [facility] Medical History (Updated 07/02/23 @ 14:50 by Jean Pierre Dhillon MD) Aortic stenosis Heart murmur CKD (chronic kidney disease) stage 3, GFR 30-59 ml/min Vitamin D deficiency Vitamin B 12 deficiency Poor balance Hypothyroidism HTN (hypertension) DM type 2 (diabetes mellitus, type 2) Surgical History S/P repair of inguinal hernia Hx of decompressive lumbar laminectomy H/O: hysterectomy S/P colon resection Family History Father Prostate cancer Mother Hypertension Social History Household Members Other:: lives alone, does not drive, no children Housing: Other Housing Other:: [facility] Alcohol intake: never Patient Tobacco Use Status: Never used Tobacco e-Cigarette/Vaping Use: Never Used Second Hand Smoke Exposure: No service: No Current occupational status: retired Cognitive needs: Yes (walker ) Hearing needs: No Vision needs: Yes (glasses) Review of Systems Const Denies chills, Denies daytime sleepiness, Denies fatigue, Denies fever(s), Denies frequent falls, Denies poor appetite, Denies snoring, Denies stops breathing during sleep, Denies weakness, Denies weight gain and Denies weight loss Eyes Denies loss of vision ENT Denies dizziness and Denies hearing loss Card Denies chest pain, Denies claudication, Denies leg edema, Denies lightheade dness, Denies palpitations, Denies dyspnea, Denies dyspnea on exertion and Denies orthopnea Resp Denies cough, Denies excessive phlegm production, Denies dyspnea, Denies dyspnea on exertion, Denies snoring and Denies wheezing GI Denies abdominal pain, Denies hematochezia, Denies change in bowel habits, Denies nausea and Denies vomiting Denies urinary frequency and Denies dysuria Musc Denies arthralgias, Denies muscle weakness, Denies numbness and Denies other (frequent falls) Skin/Breast Denies nail changes and Denies rash Neuro Denies Abnormal speech present, Denies dizziness, Denies frequent falls, Denies loss of vision, Denies memory loss, Denies numbness and Denies weakness Psych Denies depression and Denies memory loss Endo Denies fatigue and Denies palpitations Eulogio/Lymph Reports easy bruising and Reports other (anemia) Aller/Immun Denies wheezing Physical Exam Vital Signs: Last Vital Signs Pulse 66 07/02/23 14:07 BP 138/74 07/02/23 14:07 BMI result Body Mass Index 33.7 Const General: cooperative, comfortable, no acute distress, alert and awake Nutritional Appearance: obese and other (Frail elderly woman) Orientation/consciousness: patient oriented x3 Limitations: ambulation with walker HEENT Head: Yes normocephalic and Yes atraumatic Neck Neck: Yes trachea midline, Yes supple and Yes no JVD Resp Effort & Inspection: normal respiratory effort Auscultation: clear to auscultation bilaterally Cardio Jugular venous distension: no JVD Palpation: normal PMI Rate: regular rate Rhythm: regular rhythm Heart sounds: S1 normal heart sound present, S2 normal heart sound present, no click, no gallops and Murmur heart sound present systolic late, decrescendo and crescendo GI Inspection: Yes obesity Auscultation: normal bowel sounds Skin General skin exam: no rashes or lesions noted Neuro General: patient oriented x3 and no focal motor deficits Speech: No Abnormal speech present Extrem General: Yes no clubbing, cyanosis or edema Office Procedures EKG Details: EKG shows ectopic atrial rhythm [id number], Complete Assessment & Plan Assessment & Plan (1) Aortic stenosis: Code(s): I35.0 - Nonrheumatic aortic (valve) stenosis Plan: Aortic stenosis which clinically appears to be moderately severe. Discussed with her about pathophysiology of aortic stenosis and natural progression of aortic stenosis. We discuss that eventually may lead to severe aortic stenosis the symptoms and may require valve replacement. She says she will probably want to think about it. We discussed about the process of transcatheter aortic valve replacement. She will think about it. Meanwhile will pursue repeat echocardiogram to assess for progressive aortic stenosis. Also suggest low-dose aspirin therapy. Continue aggressive risk factor modification. Blood pressure is currently well optimized. Continue current therapy. Continue aggressive control of diabetes goal hemoglobin A1c less than 7%. Goal LDL definitely less than 100 mg/dL being pursue through your office. (2) Ectopic atrial rhythm: Code(s): I49.1 - Atrial premature depolarization Plan: Noted incidentally to have ectopic atrial rhythm on today's exam. No symptoms related to it. Although she has symptoms lightheadedness which are not specifi lidia exertion related. She also symptoms of fluttering. Will obtain a 7 day Holter monitor to further assess for the same. Will follow up in the clinic in 6 weeks time, sooner p.r.n.. Thank you for allowing me to partake in her care Coding Level of Care Code New Pt Level 4 (82126) Diagnoses Aortic stenosis I35.0 Ectopic atrial rhythm I49.1 CPT Codes EKG - CPT: 30803-[id number], Complete ([id number])
== END 2023-07-02 14:56 | disposition home or self-care (01) ==
PROVIDERS: PCP Nurse Practitioner Family; Visit Provider Internal Medicine Cardiovascular Disease
DX: I35.0 Nonrheumatic aortic (valve) stenosis (principal); I49.1 Atrial premature depolarization; R94.31 Abnormal electrocardiogram [ECG] [EKG]
CPT/HCPCS: 93010; 99204

== ENCOUNTER → 2023-07-02 13:41 | Outpatient (BNVA) | payer MEDICARE, SELFPAY | PROVIDERS: PCP Nurse Practitioner Family; Visit Provider Internal Medicine Cardiovascular Disease | DX: I35.0 Nonrheumatic aortic (valve) stenosis (principal); I49.1 Atrial premature depolarization | CPT/HCPCS: 93005; 99202 ==

== ENCOUNTER 2023-07-04 13:52 | Outpatient (AMB) | payer MEDICARE, SELFPAY ==
[2023-07-04 13:58] VITALS: BP 152/86; PULSE 67; O2SAT 96; BMI 34.2
--- NOTE | 2023-07-04 13:58 | A.OFFPC_ITS ---
Vital Signs 07/04/23 13:58 Height 5 ft 4 in Weight 199 lb 0.4 oz BMI 34.2 BP 152/86 H Blood Pressure Location Lt brachial Position Sitting Pulse 67 Pulse Source Pulse Oximeter Pulse Oximetry (%) 96 Oxygen Delivery Method Room Air Intake Visit Reasons: 3 Months F/U Allergies No Known Allergies Allergy (Mild, Verified 07/04/23 14:12) NKA Medication List - Last Reconciled 07/04/23 by Silvio Stephens PA-C calcium carbonate-vitamin D3 500 mg-5 mcg (200 unit) (Calcium 500 + D) 1 tab PO DAILY cholecalciferol (vitamin D3) 50 mcg PO DAILY CPAP (CPAP Machine/Device) As directed-Auto setting 8-20, heated tube and humidification diclofenac sodium 1% (Aleve (diclofenac)) 2 grams topical QID fluticasone propionate 50 mcg/actuation 2 sprays intranasal DAILY folic acid 1 mg PO DAILY hydroxyzine HCl 25 mg PO BEDTIME PRN lancets (OneTouch UltraSoft Lancets) Test blood sugar once a day levothyroxine (Euthyrox) 112 mcg PO DAILY lisinopril 5 mg PO DAILY metformin 500 mg PO DAILY OneTouch Ultra Test (blood sugar diagnostic) test blood sugar once a day NS paroxetine HCl 30 mg PO DAILY rosuvastatin (Crestor) 5 mg PO DAILY Tobacco use date assessed: 07/04/23 Fall risk assessment: No Falls in past year Last assessed Fall Risk: 07/04/23 HPI 3 Months F/U HPI Details Patient is an 83-year-old female here today for transfer care visit. This is my 1st time meeting this 83-year-old female past medical history significant for type 2 diabetes mellitus, hypertension, hypothyroidism, vitamin B12 deficiency, CKD, hyperlipidemia, moderate aortic stenosis, history of rectal cancer and status post permanent colostomy. . Aortic stenosis: Patient is followed by [facility] and considering aortic valve replacement. .. Type 2 diabetes: Patient continues on metformin 500 daily. Most recent A1c is 6.9 . According to records patient apparently does have neuropathy which is likely the reason for her poor balance. She does recall getting an EMG. Was on Lyrica and gabapentin in the past though or ineffective. Has done physical therapy for balance in the past though felt it was not helpful. She does report falling and injuring her right ankle a few months ago. .. Insomnia: Has been suffering with insomnia for many years now. She was on lorazepam and Ambien in the past though has been taken off of this medication due to her age. Was on hydroxyzine 25 mg though felt does not effective. She continues to have difficulties with sleep as she reports being awake all night and sleeping frequently through the day. PLAN: Will restart low-dose zolpidem .. .. Hypertension: Blood pressure today in office slightly elevated today in office. .. Hypothyroidism: Most recent TSH showing normal TSH. She continues on 112 mcg of levothyroxine. Laboratory Tests 03/23/23 05/30/23 07/04/23 11:40 12:04 12:35 Creatinine 0.88 Hgb A1c (Clinic) 6.9 H Hemoglobin A1c % 6.3 H TSH 6.44 H 2.45 PFSH Medical History Aortic stenosis Heart murmur CKD (chronic kidney disease) stage 3, GFR 30-59 ml/min Vitamin D deficiency Vitamin B 12 deficiency Poor balance Hypothyroidism HTN (hypertension) DM type 2 (diabetes mellitus, type 2) Surgical History S/P repair of inguinal hernia Hx of decompressive lumbar laminectomy H/O: hysterectomy S/P colon resection Family History Father Prostate cancer Mother Hypertension Social History Household Members Other:: lives alone, does not drive, no children Housing: Other Housing Other:: [facility] Alcohol intake: never Patient Tobacco Use Status: Never used Tobacco e-Cigarette/Vaping Use: Never Used Second Hand Smoke Exposure: No service: No Current occupational status: retired Cognitive needs: Yes (walker ) Hearing needs: No Vision needs: Yes (glasses) Questionnaire PHQ-9 Over the last 2 weeks, how often have you been bothered by any of the following problems? 1. Little interest or pleasure in doing things: not at all 2. Feeling down, depressed, or hopeless: not at all 3. Trouble falling or staying asleep, or sleeping too much: not at all 4. Feeling tired or having little energy: not at all 5. Poor appetite or overeating: not at all 6. Feeling bad about yourself - or that you are a failure or have let yourself or your family down: not at all 7. Trouble concentrating on things, such as reading the newspaper or watching television: not at all 8. Moving or speaking so slowly that other people could have noticed. Or the opposite - being so fidgety or restless that you have been moving around a lot more than usual: not at all 9. Thoughts that you would be better off or of hurting yourself in some way: not at all Total score: 0 Depression Screening Interpretation: Negative Depression Screening Done: Yes [id number] - PHQ-9 Billing: Yes Source: Developed by Drs. Lazarus Mathis, Jaqueline Leavitt, Finn Delgado and colleagues, with an educational atif from [email or web address]. Thrive Questionnaire Date Thrive assessed: 11/30/22 MUMTAZ-7 AMB Questionnaire MUMTAZ-7 Date MUMTAZ - 7 assessed: 07/04/23 Feeling nervous, anxious, or on edge: 0 = Not at all Not being able to stop or control worryin = Not at all Worrying too much about different things: 0 = Not at all Trouble relaxin = Not at all Being so restless that it is hard to sit still: 0 = Not at all Becoming easily annoyed or irritable: 0 = Not at all Feeling afraid as if something awful might happen: 0 = Not at all Total MUMTAZ-7 score (0-4 normal; 5-9 mild; 10-14 moderate; 15-21 severe): 0 Source: Developed by Drs. Lazarus Mathis, Finn Alvarez and colleagues, with an educational atif from [email or web address]. MUMTAZ-7 Assessment Billing MUMTAZ-7 Assessment Tool: MUMTAZ-7 Assessment 28935 Review of Systems Const Denies headache(s) Eyes Denies loss of vision ENT Denies vertigo, Denies dizziness, Denies headache(s) and Denies sore throat Card Denies chest pain, Denies leg edema and Denies lightheadedness Resp Denies cough, Denies hemoptysis and Denies wheezing GI Denies abdominal pain, Denies melena, Denies constipation, Denies diarrhea and Denies vomiting Denies urinary frequency, Denies dysuria and Denies urinary urgency Musc Denies arthralgias, Denies joint swelling, Denies numbness and Denies tingling Neuro Denies Abnormal speech present, Denies behavioral changes, Denies vertigo, Denies dizziness, Denies headache(s), Denies loss of vision, Denies memory loss, Denies numbness and Denies tingling Psych Denies anxiety, Denies behavioral changes, Denies depression, Denies memory loss and Denies panic attacks Eulogio/Lymph Denies easy bleeding and Denies easy bruising Aller/Immun Denies wheezing Physical exam (Primary Care) Vital Signs: Last Vital Signs Pulse 67 07/04/23 13:58 BP 152/86 H 07/04/23 13:58 Pulse Ox 96 07/04/23 13:58 Oxygen Delivery Method Room Air 07/04/23 13:58 BMI result Body Mass Index 34.2 BMI Assessment/Plan discussion: High Tobacco/Smoking Status: Tobacco use Status Tobacco use date assessed 07/04/23 07/04/23 13:59 Patient Tobacco Use Status Never used Tobacco 07/04/23 13:59 e-Cigarette/Vaping Use Never Used 07/04/23 13:59 PHQ-9: PHQ-9 Score PHQ-9: Total score 0 07/04/23 14:13 Depression Screening Interpretation: Negative Thrive Assessment: Date of Thrive Assessment Date Thrive assessed 11/30/22 07/04/23 13:59 Const General: healthy appearing, no acute distress, alert and awake Nutritional Appearance: well nourished Orientation/consciousness: oriented to person, oriented to place and oriented to time HENMT Ears: TM's normal bilaterally General nose exam: Normal nasal mucous membranes and turbinates present Eyes Conjunctivae: conjunctivae normal Sclerae: sclerae normal Pupils: Equal, round and reactive pupils present Neck Neck: Yes no lymphadenopathy and Yes no JVD Thyroid: Thyroid normal Carotids: no bruits Resp Effort & Inspection: normal respiratory effort and not tachypneic Auscultation: no crackles, no rales, no rhonchi and no wheezes Cardio Rate: regular rate Rhythm: regular rhythm Heart sounds: no murmurs and normal S1 and S2 GI Palpation (GI): Soft to palpation, nontender, no hepatomegaly and no splenomegaly Auscultation: normal bowel sounds Back/Spine/Pelvis Other: AMBULATING WITH A WALKER ASSIST Skin General skin exam: no rashes or lesions noted and dry skin Neuro General: oriented to person, oriented to place and oriented to time Cranial nerves: Yes Equal, round and reactive pupils present Speech: No Abnormal speech present Gait exam (Neuro): Normal gait present Motor exam (neuro): no tremor noted Extrem Right upper extremity: full ROM Left upper extremity: full ROM Right lower extremity: full ROM; no edema Left lower extremity: full ROM; no edema Psych Mental Status: mental status grossly normal Speech and movement: Normal speech and movement present Affect: normal affect Attitude: cooperative Thought process: Normal thought process present Results AMB Hemoglobin A1c AMB Hemoglobin A1c 6.9 % Last Edit by SHEBA Hairston on 07/04/23 14:09 Results Reviewed Results Reviewed: Laboratory Last Values Hgb A1c (Clinic) 6.9 % (4.0-6.0) H 07/04/23 12:35 Assessment and Plan Assessment & Plan (1) Hyperlipemia: Code(s): E78.5 - Hyperlipidemia, unspecified Qualifiers: Hyperlipidemia type: mixed hyperlipidemia Qualified Code(s): E78.2 - Mixed hyperlipidemia Plan: Patient continues on statin therapy without side effect. Will continue to fasting lipids to assure normal. Goal LDL to be below 100. (2) Moderate aortic stenosis: Comment: ECHO 09/2022, RECHECK IN 1 YR Code(s): I35.0 - Nonrheumatic aortic (valve) stenosis Plan: Patient followed by Cardiology. Most recent echocardiogram showing moderate aortic stenosis. No overt signs of heart failure (3) HTN (hypertension): Code(s): I10 - Essential (primary) hypertension Qualifiers: Hypertension type: primary hypertension Qualified Code(s): I10 - Essential (primary) hypertension Plan: Patient's blood pressure slightly elevated today in office. Advised to start monitoring blood pressure at home with goal blood pressure be below 140/90. Will consider increasing her lisinopril dose to 10 mg. (4) DM type 2 (diabetes mellitus, type 2): Code(s): E11.9 - Type 2 diabetes mellitus without complications Qualifiers: Diabetes mellitus complication status: with hyperglycemia Diabetes mellitus long-term insulin use: without longwall foreman use Qualified Code(s): E11.65 - Type 2 diabetes mellitus with hyperglycemia Plan: Patient's type 2 diabetes well controlled with current dose of metformin 500 mg. Goal A1c is to remain below 7.5 due to patient's age and comorbidities. (5) Colostomy in place: Code(s): Z93.3 - Colostomy status Plan: History of rectal cancer. Continues to manage her own colostomy (6) Neuropathy: Code(s): G62.9 - Polyneuropathy, unspecified Plan: Patient seems to have lower extremity neuropathy. Was treated with neuro modula tors in the past though had side effect of fatigue. Patient is willing to restart physical therapy to help regain strength and help her with her balance. (7) Obese: Code(s): E66.9 - Obesity, unspecified Qualifiers: Obesity type: due to excess calories Obesity classification: adult class 1 (BMI 30 - 34.9) Serious obesity comorbidity presence: with serious comorbidity Body mass index: BMI 34.0-34.9 Qualified Code(s): E66.09 - Other obesity due to excess calories; Z68.34 - Body mass index [BMI] 34.0-34.9, adult Plan: Patient does understand her BMI is over 30 and will work on better eating habits to reduce her weight. Unable to be very physically active due to her balance disorder and neuropathy in her lower extremities. Orders: Orders AMB Hemoglobin A1c Today E11.9 - Type 2 diabetes mellitus without complications Lipid Panel Today E78.2 - Mixed hyperlipidemia TSH reflex Free T4 Today E03.9 - Hypothyroidism, unspecified Vitamin B12 and Folate Today E53.8 - Deficiency of other specified B group vitamins Microalbumin, Random (w Creat) Today E11.65 - Type 2 diabetes mellitus with hyperglycemia Comprehensive [place]. Panel Fast Today I10 - Essential (primary) hypertension PT Evaluation and Treatment Today G62.9 - Polyneuropathy, unspecified, R26.89 - Other abnormalities of gait and mobility Vitamin D 25-OH Total Today E55.9 - Vitamin D deficiency, unspecified Medications: New zolpidem 5 mg PO BEDTIME 30 tabs 3RF 30 days G47.00 - Insomnia, unspecified magnesium oxide 250 mg PO BID 60 tabs 3RF 30 days G47.00 - Insomnia, unspecified, R51.9 - Headache, unspecified alpha lipoic acid 600 mg PO BID 60 tabs 1RF 30 days G62.9 - Polyneuropathy, unspecified Refilled rosuvastatin (Crestor) 5 mg PO DAILY 90 tabs 3RF levothyroxine (Euthyrox) 112 mcg PO DAILY 90 tabs 3RF Discontinued hydroxyzine HCl Discontinued Reason: Doctor's Order 25 mg PO BEDTIME PRN 30 tabs 0RF anxiety G47.00 - Insomnia, unspecified Coding Level of Care Code Est Pt Level 4 (73005) Diagnoses Mixed hyperlipidemia E78.2 Hyperlipidemia type: mixed hyperlipidemia Moderate aortic stenosis I35.0 Primary hypertension I10 Hypertension type: primary hypertension Type 2 diabetes mellitus with hyperglycemia, without long-term current use of insulin E11.65 Diabetes mellitus complication status: with hyperglycemia Diabetes mellitus longwall foreman insulin use: without long-term use Colostomy in place Z93.3 Neuropathy G62.9 Class 1 obesity due to excess calories with serious comorbidity and body mass index (BMI) of 34.0 to 34.9 in adult E66.09; Z68.34 Obesity type: due to excess calories Obesity classification: adult class 1 (BMI 30 - 34.9) Serious obesity comorbidity presence: with serious comorbidity Body mass index: BMI 34.0-34.9 Additional Codes MUMTAZ-7 Assessment Billing - MUMTAZ-7 Assessment Tool: MUMTAZ-7 Assessment 20461 ([id number])
== END 2023-07-04 14:50 | disposition home or self-care (01) ==
PROVIDERS: PCP Nurse Practitioner Family; Visit Provider Physician Assistant
DX: E11.65 Type 2 diabetes mellitus with hyperglycemia (principal); Z93.3 Colostomy status; E11.42 Type 2 diabetes mellitus with diabetic polyneuropathy; G62.9 Polyneuropathy, unspecified; E78.2 Mixed hyperlipidemia; I35.0 Nonrheumatic aortic (valve) stenosis; I10 Essential (primary) hypertension; E66.09 Other obesity due to excess calories; Z68.34 Body mass index [BMI] 34.0-34.9, adult
CPT/HCPCS: 83036; 99214

== ENCOUNTER → 2023-09-06 13:01 | Outpatient (REF) | payer MEDICARE, SELFPAY ==
--- NOTE | 2023-09-06 13:03 | HM_ITS ---
* Total monitoring time 7 days. * Underlying rhythm is sinus with an average rate of 69/Min. Range 56 to 121/Min. * Frequent supraventricular ectopy with a burden of 12%. Very brief runs noted. * Occasional ventricular ectopy with a burden of 0.7%. This includes couplets, some bigeminy, trigeminy. Multiple morphologies. * No significant pauses or AV blocks. * Patient markers used 3 times in association with normal sinus rhythm, supraventricular, ventricular ectopy. MTDD
--- NOTE | 2023-09-06 13:03 | CA_ITS ---
Transthoracic Echocardiogram Patient (Last, First, Middle): Chrissy Bejarano Helen Gender: Female Date of : 1940 Age: 83 Procedure Date: 09/06/2023 Procedure Type: Transthoracic Echocardiogram Location: OP Height: 162.56 cm Weight: 90.27 kg BSA: 1.95 m2 Heart Rate: 67 bpm BP: 174 / 62 mmHg Woodyard Crane Operator: SB Referring MD: Jean Pierre Dhillon MD Web Press Roll Tender: Jean Pierre Dhillon MD Symptoms: I35.0 - Nonrheumatic aortic (valve) stenosis Study Quality: Fair ECG Rhythm: Sinus Conclusions: - 1. Normal LV ejection fraction of 65-70% grade 2 diastolic dysfunction 2. Mildly dilated left atrium 3. Moderate to severe aortic stenosis 4. Normal RV systolic pressure 5. Mildly dilated ascending aorta 3.7 cm 6. No gross pericardial effusion Findings Procedure Information The quality of the study was technically difficult. The study quality is limited by patients body habitus. Left Ventricle Normal left ventricular size, thickness, and systolic function. The visually estimated ejection fraction is between 65-70%. Spectral Doppler is indicative of a pseudonormal filling pattern. E/E prime ratio is >15, consistent with elevated filling pressures. Evidence suggests grade II (moderate) diastolic dysfunction. Right Ventricle Normal right ventricular cavity size and systolic function. Atria The left atrium is mildly dilated. There is no evidence of interatrial shunt. The right atrium is normal in size. Aortic Valve There is moderate calcification of the aortic valve. There is moderate thickening of the aortic valve. There is moderate to severe aortic valve stenosis. The peak aortic gradient is 48 mmHg.The mean gradient is 25 mmHg. The aortic valve area is 0.92 cm2. There is no aortic valve regurgitation. Dimensionless index is 0.31, more suggestive of moderate aortic stenosis. Mitral Valve There is mild anterior and moderate posterior mitral leaflet thickening. There is moderate mitral annular calcification. There is mild mitral valve regurgitation. There is no mitral valve stenosis. Pulmonic Valve The pulmonic valve is likely normal. Tricuspid Valve Normal tricuspid valve structure. There is mild tricuspid valve regurgitation. The right ventricular systolic pressure is normal. The right ventricular systolic pressure is 31 mmHg. Normal right atrial pressure. There is no evidence of pulmonary hypertension. Great Vessels The pulmonary artery was not well visualized. There is mild dilatation of the ascending aorta measuring 3.70 cm. Venous The inferior vena cava is normal in size and collapses greater than 50% with inspiration. Pericardium/Pleural There is no evidence of pericardial effusion. Prior Study Comparison Changes noted compared to prior study dated: 07/25/2022. Slight increase in severity of aortic stenosis Measurements 2D Linear Measurements IVSd: 0.92 0.6-0.9/0.6-1.0 cm LVIDd: 5.23 3.9-5.3/4.2-5.9 cm LVIDd Index: 2.68 2.4-3.2/2.2-3.1 cm/m2 LVIDs: 3.43 2.0-3.6 cm LVPWd: 1.07 0.7-1.1 cm LA Diam: 4.40 2.7-3.8/3.0-4.0 cm LAIDs Index: 2.26 1.5-2.3 cm/m2 LV Mass: 242.81 67-162/88-224 g LV Mass Index: 124.52 43-95/49-115 g/m2 LVOT Diam: 1.90 3.0+(-)1.3 cm 2D Systolic Function EF 4C: 69.70 >55% EF 2C: 64.00 >55% EF BiP: 67.70 >55% Mitral Valve MV Pk E: 1.22 MV PK A: 0.91 MV Decel Time: 299.00 E/A: 1.30 E'Lateral: 5.43 E'Medial: 5.51 E/E' Med: 22.10 E/E' Lat: 22.50 PHT: 88.00 MVA PHT: 2.50 Decel [place]: 4.07 Aortic Valve AoV Pk K[place]: 3.47 AoV Mn Kam[place]: 2.35 AoV VTI: 0.75 AoV Pk Grad: 48.00 Aov Mn Grad: 25.00 MEHDI Cont.VTI: 0.92 AI Pk [place]: 4.34 AI [place]: 2.58 LVOT LVOT Pk [place]: 1.15 LVOT Mn [place]: 0.79 LVOT VTI: 0.24 LVOT Pk Grad: 5.00 LVOT Mn Grad: 3.00 LVOT Diam: 1.90 LVOT Area: 2.84 Diastolic Function MV Pk E: 1.22 MV Pk A: 0.91 E/A: 1.30 E'Medial: 5.51 E/E' Med: 22.10 E' Laterial: 5.43 E/E' Lat: 22.50 Right Ventricle TAPSE (mm): 28.00 TVS' Kam[place]: 13.20 Tricuspid Valve TR Pk Kamron: 2.64 TR Pk Grad: 28.00 RA Press: 3.00 RVSP: 31.00 Great Vessels Aorta Sinus of Valsalva: 3.20 2.0-3.5 cm Ao Asc: 3.70 2.1-3.4 cm Pulmonary Veins Pulm Vein S/D 0.90 Pulmonary Valve PV Pk [place]: 1.03 Peak PV Grad: 4.00 Updated in Other Vendor System with Status of Final Jean Pierre Dhillon MD electronically signed on 09/07/2023 3:39:58 PM with status of Final
[2023-09-06 14:45] LABS: Alanine Aminotransferase 11 U/L (0-31); Albumin Level 3.8 g/dL (3.5-5.0); Alkaline Phosphatase 68 U/L (39-117); Anion Gap 18 (12-20); Aspartate Amino Transferase 18 U/L (5-31); Bilirubin Total 0.6 mg/dL (0.0-1.0); Blood Urea Nitrogen 15 mg/dL (9-16); Calcium 9.8 mg/dL (8.4-10.2); Carbon Dioxide 21 mmol/L (22-29); Chloride 107 mmol/L (96-108); Cholesterol 208 mg/dL (<200); Estimated Glomerular Filt Rate 57; Glucose Fasting 135 mg/dL (60-99); HDL Cholesterol 54 mg/dL (>40); LDL Cholesterol Calculated 130 mg/dL (<100); Potassium 3.8 mmol/L (3.3-5.1); Sodium 142 mmol/L (135-145); Total Protein 7.1 g/dL (6.5-8.0); Triglycerides 123 mg/dL (<150)
[2023-09-06 15:01] LABS: TSH reflex Free T4 7.05 uIU/mL (0.32-4.0); Vitamin D 25-OH Total 33.4 ng/mL (>30)
[2023-09-06 15:08] LABS: Creatinine Urine 311.25 mg/dL; Microalbum/Creatinine Ratio Ur 26.6 ug/mg cr (<30)
[2023-09-06 15:18] LABS: Folate 12.8 ng/mL (> or = 4.0); Vitamin B12 339 pg/mL (200-900)
[2023-09-06 16:41] LABS: Free T4 (Free Thyroxine) 1.22 ng/dL (0.71-1.85)
== END ==
LOC: HO.CARD 13:01
PROVIDERS: PCP Physician Assistant; Visit Provider Internal Medicine Cardiovascular Disease
DX: I49.1 Atrial premature depolarization (principal); I35.0 Nonrheumatic aortic (valve) stenosis; I10 Essential (primary) hypertension; E11.65 Type 2 diabetes mellitus with hyperglycemia; E03.9 Hypothyroidism, unspecified; E78.2 Mixed hyperlipidemia; E53.8 Deficiency of other specified B group vitamins; E55.9 Vitamin D deficiency, unspecified
CPT/HCPCS: 36415; 80053; 80061; 82043; 82306; 82570; 82607; 82746; 84439; 84443; 93242; 93306

== ENCOUNTER → 2023-09-06 13:03 | Outpatient (BNV) | payer MEDICARE, SELFPAY | PROVIDERS: PCP Physician Assistant; Visit Provider Internal Medicine Cardiovascular Disease | DX: I49.1 Atrial premature depolarization (principal) | CPT/HCPCS: 93244; 93306 ==

== ENCOUNTER 2023-09-24 13:48 | Outpatient (AMB) | payer MEDICARE, SELFPAY ==
[2023-09-24 14:04] VITALS: BP 132/68; PULSE 72; BMI 31.4
--- NOTE | 2023-09-24 14:04 | MHC.OFFVIS ---
Intake Vital Signs 09/24/23 14:04 Height 5 ft 4 in Weight 183 lb BMI 31.4 BP 132/68 Blood Pressure Location Lt brachial Position Sitting Pulse 72 Intake Visit Reasons: f/up echo and 7 day holter NS Intake Note: FOLLOW UP AFTER ECHO AND HOLTER PT FEELS GOOD Accompanied by: Brother Allergies No Known Allergies Allergy (Mild, Verified 07/04/23 14:12) NKA Medication List - Last Reconciled 09/24/23 by Jean Pierre Dhillon MD alpha lipoic acid 600 mg PO BID 30 days calcium carbonate-vitamin D3 500 mg-5 mcg (200 unit) (Calcium 500 + D) 1 tab PO DAILY cholecalciferol (vitamin D3) 50 mcg PO DAILY CPAP (CPAP Machine/Device) As directed-Auto setting 8-20, heated tube and humidification diclofenac sodium 1% (Aleve (diclofenac)) 2 grams topical QID fluticasone propionate 50 mcg/actuation 2 sprays intranasal DAILY folic acid 1 mg PO DAILY lancets (OneTouch UltraSoft Lancets) Test blood sugar once a day levothyroxine 112 mcg PO DAILY lisinopril 5 mg PO DAILY magnesium oxide 250 mg PO BID 30 days metformin 500 mg PO DAILY miscellaneous medical supply 1 ea miscellaneous DAILY 99 days OneTouch Ultra Test (blood sugar diagnostic) test blood sugar once a day NS paroxetine HCl 30 mg PO DAILY rosuvastatin 5 mg PO DAILY zolpidem 5 mg PO BEDTIME 30 days HPI HPI Comments History of Present Illness Details Chrissy comes for follow-up. She underwent echocardiogram which confirmed presence of moderately severe aortic stenosis with normal LV systolic function grade 2 diastolic dysfunction. She denies any new symptoms. Remains limited in her functionality. Her main symptom currently is insomnia though. She denies any exertional chest pain, shortness of breath, lightheadedness, syncope. She also denies any significant symptoms of palpitations. Holter monitor does show frequent PACs although she says her fluttering in the chest is not life-limiting. [facility] Medical History Aortic stenosis Heart murmur CKD (chronic kidney disease) stage 3, GFR 30-59 ml/min Vitamin D deficiency Vitamin B 12 deficiency Poor balance Hypothyroidism HTN (hypertension) DM type 2 (diabetes mellitus, type 2) Surgical History S/P repair of inguinal hernia Hx of decompressive lumbar laminectomy H/O: hysterectomy S/P colon resection Family History Father Prostate cancer Mother Hypertension Social History Household Members Other:: lives alone, does not drive, no children Housing: Other Housing Other:: [facility] Alcohol intake: never Patient Tobacco Use Status: Never used Tobacco e-Cigarette/Vaping Use: Never Used Second Hand Smoke Exposure: No service: No Current occupational status: retired Cognitive needs: Yes (walker ) Hearing needs: No Vision needs: Yes (glasses) Review of Systems Const Denies weakness ENT Denies dizziness Card Denies chest pain, Denies chest pain with activity, Denies syncope, Denies rapid heart rate, Denies pedal edema, Denies edema, Denies leg edema, Denies lightheadedness, Denies palpitations, Denies dyspnea, Denies dyspnea on exertion and Denies orthopnea Resp Denies cough, Denies dyspnea and Denies dyspnea on exertion GI Denies hematochezia and Denies change in stool character Musc Denies abnormal gait, Denies muscle cramps, Denies muscle weakness, Denies numbness, Denies radiating pain into limb and Denies tingling Neuro Denies Abnormal speech present, Denies abnormal gait, Denies dizziness, Denies syncope, Denies numbness, Denies tingling and Denies weakness Endo Denies palpitations Physical Exam Vital Signs: Last Vital Signs Pulse 72 09/24/23 14:04 BP 132/68 09/24/23 14:04 BMI result Body Mass Index 31.4 Const General: cooperative, comfortable, no acute distress, alert and awake Nutritional Appearance: obese and other (Frail elderly woman) Orientation/consciousness: patient oriented x3 Limitations: ambulation with walker HEENT Head: Yes normocephalic and Yes atraumatic Neck Neck: Yes trachea midline, Yes supple and Yes no JVD Resp Effort & Inspection: normal respiratory effort Auscultation: clear to auscultation bilaterally Cardio Jugular venous distension: no JVD Palpation: normal PMI Rate: regular rate Rhythm: regular rhythm Heart sounds: S1 normal heart sound present, S2 normal heart sound present, no click, no gallops and Murmur heart sound present systolic late, decrescendo and crescendo GI Inspection: Yes obesity Auscultation: normal bowel sounds Skin General skin exam: no rashes or lesions noted Neuro General: patient oriented x3 and no focal motor deficits Speech: No Abnormal speech present Extrem General: Yes no clubbing, cyanosis or edema Assessment & Plan Assessment & Plan (1) Aortic stenosis: Code(s): I35.0 - Nonrheumatic aortic (valve) stenosis Plan: Aortic stenosis which appears to be moderately severe by clinical exam as well as by echocardiogram. Cardinal symptoms associated with aortic stenosis were discussed. No indication for replacement at this point time. Will continue monitor clinically as well as by echocardiogram 6 months time. Gradually progressive nature of aortic stenosis were discussed. Potential aortic valve replacement as a treatment was discussed. She wants to think about it. Continue low-dose aspirin therapy. Continue aggressive vascular risk factor modification. Statin is at low dose at 5 mg. Target goal LDL less than 100 mg/dL. Blood pressure is currently well optimized. Advised to call me with any new symptoms. (2) PAC (premature atrial contraction): Code(s): I49.1 - Atrial premature depolarization Plan: Frequent PACs causing most likely her symptoms of flutter although she is not limited by her symptoms at this point time. Would avoid treating this. However she develops any prolonged irregular heartbeat which can happen in patients frequent PACs as a trigger for atrial fibrillation, she is advised to call my office. Avoidance of stimulants was discussed. Better sleep pattern needs to be pursued. Stress mitigation strategies advised. Follow up in the clinic in 6 months time, sooner p.r.n.. Thank you for allowing me to partake in the care Orders: Orders CA echo transthoracic complete 6 Months I35.0 - Nonrheumatic aortic (valve) stenosis Coding Level of Care Code Est Pt Level 4 (92256) Diagnoses Aortic stenosis I35.0 PAC (premature atrial contraction) I49.1
== END 2023-09-24 14:47 | disposition home or self-care (01) ==
PROVIDERS: PCP Physician Assistant; Visit Provider Internal Medicine Cardiovascular Disease
DX: I35.0 Nonrheumatic aortic (valve) stenosis (principal); I49.1 Atrial premature depolarization
CPT/HCPCS: 99214

== ENCOUNTER → 2023-09-24 13:48 | Outpatient (BNVA) | payer MEDICARE, SELFPAY | PROVIDERS: PCP Physician Assistant; Visit Provider Internal Medicine Cardiovascular Disease | DX: I35.0 Nonrheumatic aortic (valve) stenosis (principal); I49.1 Atrial premature depolarization; I51.9 Heart disease, unspecified | CPT/HCPCS: 99212 ==

== ENCOUNTER 2023-10-03 13:55 | Outpatient (AMB) | payer MEDICARE, SELFPAY ==
--- NOTE | 2023-10-03 14:08 | MHC.PC.OV ---
Vital Signs 10/03/23 14:09 Height 5 ft 4 in Weight 185 lb 13.595 oz BMI 31.9 BP 130/66 Blood Pressure Location Lt brachial Position Sitting Pulse 68 Pulse Source Pulse Oximeter Pulse Oximetry (%) 95 Oxygen Delivery Method Room Air Intake Visit Reasons: f/u DMII/ HLD Surgical Instrument Maker Required: No Accompanied by: Sister Allergies No Known Allergies Allergy (Mild, Verified 10/03/23 14:19) NKA Medication List - Last Reconciled 10/03/23 by Silvio Stephens PA-C alpha lipoic acid 600 mg PO BID 30 days calcium carbonate-vitamin D3 500 mg-5 mcg (200 unit) (Calcium 500 + D) 1 tab PO DAILY cholecalciferol (vitamin D3) 50 mcg PO DAILY CPAP (CPAP Machine/Device) As directed-Auto setting 8-20, heated tube and humidification diclofenac sodium 1% (Aleve (diclofenac)) 2 grams topical QID fluticasone propionate 50 mcg/actuation 2 sprays intranasal DAILY folic acid 1 mg PO DAILY lancets (OneTouch UltraSoft Lancets) Test blood sugar once a day levothyroxine 112 mcg PO DAILY lisinopril 5 mg PO DAILY magnesium oxide 250 mg PO BID 30 days metformin 500 mg PO DAILY miscellaneous medical supply 1 ea miscellaneous DAILY 99 days OneTouch Ultra Test (blood sugar diagnostic) test blood sugar once a day NS paroxetine HCl 30 mg PO DAILY rosuvastatin 5 mg PO DAILY zolpidem 5 mg PO BEDTIME 30 days Tobacco use date assessed: 07/04/23 Fall risk assessment: No Falls in past year Last assessed Fall Risk: 10/03/23 Dental Screening Dental Screen Date: 10/03/23 Did you have a dental visit in the last 12 months?: Yes Did you have a dental problem in the last 6 months where you did not have access to dental care?: No Was dental information given to patient?: Patient has dentist HPI f/u DMII/ HLD HPI Details Patient is an 83-year-old female here today for a follow-up visit.. This is my 2ndttime meeting this 83-year-old female past medical history significant for type 2 diabetes mellitus, hypertension, hypothyroidism, vitamin B12 deficiency, CKD, hyperlipidemia, moderate aortic stenosis, history of rectal cancer and status post permanent colostomy. . Aortic stenosis: Patient is followed by [facility] and considering aortic valve replacement. She has gotten recent echocardiogram did does show moderate to severe aortic stenosis. She does report feeling somewhat dizzy on a nearly daily basis. Unclear if this is due to aortic stenosis or side effect of medication. .. Type 2 diabetes: Patient continues on metformin 500 daily. Today's A2a-xufgvnlyul below 6.5 . Concern--> -According to records patient apparently does have neuropathy which is likely the reason for her poor balance. She does recall getting an EMG. Was on Lyrica and gabapentin in the past though or ineffective. Has done physical therapy for balance in the past though felt it was not helpful. She does report falling and injuring her left knee recently. He reports most of her pain is on her lateral hips. She does a lot of sitting at home and only walks from 1 room to the other in her apartment. PLAN: Will try to set her up for physical therapy for balance training and lower extremity strengthening. Would likely benefit from getting x-rays of her hips to evaluate for advanced arthritis. .. Insomnia: Has been suffering with insomnia for many years now. She was on lorazepam and Ambien in the past though has been taken off of this medication due to her age. Was on hydroxyzine 25 mg though felt does not effective. She continues to have difficulties with sleep as she reports being awake all night and sleeping frequently through the day. She has recently been placed back on Ambien low-dose 5 mg though feels it is not effective. Will increase her dose to 10 mg to see if she would be able to sleep better as this dose was effective for her in the past. .. Hypertension: Blood pressure today in office acceptable, will continue her current dose of antihypertensive medication. .. Hypothyroidism: Most recent TSH elevated. Also cholesterol elevated in the setting of hypo functioning thyroid.. We have increased her levothyroxine to 125 mcg. Will recheck TSH [facility] Medical History Aortic stenosis Heart murmur CKD (chronic kidney disease) stage 3, GFR 30-59 ml/min Vitamin D deficiency Vitamin B 12 deficiency Poor balance Hypothyroidism HTN (hypertension) DM type 2 (diabetes mellitus, type 2) Surgical History S/P repair of inguinal hernia Hx of decompressive lumbar laminectomy H/O: hysterectomy S/P colon resection Family History Father Prostate cancer Mother Hypertension Social History Household Members Other:: lives alone, does not drive, no children Housing: Other Housing Other:: [facility] Alcohol intake: never Patient Tobacco Use Status: Never used Tobacco e-Cigarette/Vaping Use: Never Used Second Hand Smoke Exposure: No service: No Current occupational status: retired Cognitive needs: Yes (walker ) Hearing needs: No Vision needs: Yes (glasses) Questionnaire Thrive Questionnaire Date Thrive assessed: 11/30/22 MUMTAZ-7 AMB Questionnaire MUMTAZ-7 Date MUMTAZ - 7 assessed: 07/04/23 Source: Developed by Drs. Lazarus Mathis, Jaqueline Leavitt, Finn Delgado and colleagues, with an educational atif from [employer]. Review of Systems Const Denies headache(s) Eyes Denies loss of vision ENT Denies vertigo, Denies dizziness, Denies headache(s) and Denies sore throat Card Denies chest pain, Denies leg edema and Denies lightheadedness Resp Denies cough, Denies hemoptysis and Denies wheezing GI Denies abdominal pain, Denies melena, Denies constipation, Denies diarrhea and Denies vomiting Denies urinary frequency, Denies dysuria and Denies urinary urgency Musc Denies arthralgias, Denies joint swelling, Denies numbness and Denies tingling Neuro Denies Abnormal speech present, Denies behavioral changes, Denies vertigo, Denies dizziness, Denies headache(s), Denies loss of vision, Denies memory loss, Denies numbness and Denies tingling Psych Denies anxiety, Denies behavioral changes, Denies depression, Denies memory loss and Denies panic attacks Eulogio/Lymph Denies easy bleeding and Denies easy bruising Aller/Immun Denies wheezing Physical exam (Primary Care) Vital Signs: Last Vital Signs Pulse 68 10/03/23 14:09 BP 130/66 10/03/23 14:09 Pulse Ox 95 10/03/23 14:09 Oxygen Delivery Method Room Air 10/03/23 14:09 BMI result Body Mass Index 31.9 Tobacco/Smoking Status: Tobacco use Status Tobacco use date assessed 07/04/23 10/03/23 14:12 Patient Tobacco Use Status Never used Tobacco 10/03/23 14:12 e-Cigarette/Vaping Use Never Used 10/03/23 14:12 Thrive Assessment: Date of Thrive Assessment Date Thrive assessed 11/30/22 10/03/23 14:12 Const General: no acute distress, alert and awake Nutritional Appearance: well nourished Orientation/consciousness: oriented to person, oriented to place and oriented to time HENMT Ears: TM's normal bilaterally General nose exam: Normal nasal mucous membranes and turbinates present Eyes Conjunctivae: conjunctivae normal Sclerae: sclerae normal Pupils: Equal, round and reactive pupils present Neck Neck: Yes no lymphadenopathy and Yes no JVD Thyroid: Thyroid normal Carotids: no bruits Resp Effort & Inspection: normal respiratory effort and not tachypneic Auscultation: no crackles, no rales, no rhonchi and no wheezes Cardio Rate: regular rate Rhythm: regular rhythm Heart sounds: no murmurs and normal S1 and S2 GI Palpation (GI): Soft to palpation, nontender, no hepatomegaly and no splenomegaly Auscultation: normal bowel sounds Skin General skin exam: no rashes or lesions noted and dry skin Neuro General: oriented to person, oriented to place and oriented to time Cranial nerves: Yes Equal, round and reactive pupils present Speech: No Abnormal speech present Gait exam (Neuro): Normal gait present Motor exam (neuro): no tremor noted Extrem Other: SOMEWHAT UNSTABLE ON FEET WHEN STANDINGX. AMBULATING WITH A WALKER ASSISTANCE. Right upper extremity: full ROM Left upper extremity: full ROM Right lower extremity: full ROM; no edema Left lower extremity: full ROM; no edema Psych Mental Status: mental status grossly normal Speech and movement: Normal speech and movement present Affect: normal affect Attitude: cooperative Thought process: Normal thought process present Results AMB Hemoglobin A1c AMB Hemoglobin A1c 6.4 % Last Edit by GLADIS Haley on 10/03/23 14:19 Results Reviewed Results Reviewed: Laboratory Last Values Hgb A1c (Clinic) 6.4 % (4.0-6.0) H 10/03/23 14:18 Assessment and Plan Assessment & Plan (1) Hip pain, bilateral: Code(s): M25.551 - Pain in right hip; M25.552 - Pain in left hip Plan: Will get x-rays of bilateral hips to evaluate for any severe arthritis. She does report having pain in her lateral aspect of her hips. She does have some lower extremity weakness and balance issues. (2) Hyperlipemia: Code(s): E78.5 - Hyperlipidemia, unspecified Qualifiers: Hyperlipidemia type: mixed hyperlipidemia Qualified Code(s): E78.2 - Mixed hyperlipidemia Plan: Patient continues on statin therapy without side effect. Will continue to fasting lipids to assure normal. Goal LDL to be below 100. (3) Moderate aortic stenosis: Comment: ECHO 09/2022, RECHECK IN 1 YR Code(s): I35.0 - Nonrheumatic aortic (valve) stenosis Plan: Patient followed by Cardiology. Most recent echocardiogram showing moderate- severe aortic stenosis. No overt signs of heart failure. Does have significant systolic murmur on physical exam (4) HTN (hypertension): Code(s): I10 - Essential (primary) hypertension Qualifiers: Hypertension type: primary hypertension Qualified Code(s): I10 - Essential (primary) hypertension Plan: Patient's blood pressure acceptable today in office.. Advised to start monitoring blood pressure at home with goal blood pressure be below 140/90. (5) DM type 2 (diabetes mellitus, type 2): Code(s): E11.9 - Type 2 diabetes mellitus without complications Qualifiers: Diabetes mellitus complication status: with hyperglycemia Diabetes mellitus rat exterminator insulin use: without rat exterminator use Qualified Code(s): E11.65 - Type 2 diabetes mellitus with hyperglycemia Plan: Patient's type 2 diabetes well controlled with current dose of metformin 500 mg. Goal A1c is to remain below 7.5 due to patient's age and comorbidities. (6) Colostomy in place: Code(s): Z93.3 - Colostomy status Plan: History of rectal cancer. Continues to manage her own colostomy (7) Neuropathy: Code(s): G62.9 - Polyneuropathy, unspecified Plan: Patient seems to have lower extremity neuropathy. Was treated with neuro modulators in the past though had side effect of fatigue. Patient is willing to restart physical therapy to help regain strength and help her with her balance. (8) Obese: Code(s): E66.9 - Obesity, unspecified Qualifiers: Body mass index: BMI 34.0-34.9 Obesity classification: adult class 1 (BMI 30 - 34.9) Obesity type: due to excess calories Serious obesity comorbidity presence: with serious comorbidity Qualified Code(s): E66.09 - Other obesity due to excess calories; Z68.34 - Body mass index [BMI] 34.0-34.9, adult Plan: Patient does understand her BMI is over 30 and will work on better eating habits to reduce her weight. Unable to be very physically active due to her balance disorder and neuropathy in her lower extremities. Orders: Orders Comprehensive [place]. Panel Fast 10/03/23 E78.2 - Mixed hyperlipidemia Vitamin D 25-OH Total 10/03/23 E55.9 - Vitamin D deficiency, unspecified AMB Hemoglobin A1c 10/03/23 E11.65 - Type 2 diabetes mellitus with hyperglycemia XR hip LT 1V 10/03/23 M25.551 - Pain in right hip, M25.552 - Pain in left hip XR hip RT 1V 10/03/23 M25.551 - Pain in right hip, M25.552 - Pain in left hip PT Evaluation and Treatment 10/03/23 M51.9 - Unspecified thoracic, thoracolumbar and lumbosacral intervertebral disc disorder, R26.89 - Other abnormalities of gait and mobility TSH reflex Free T4 10/03/23 E03.9 - Hypothyroidism, unspecified Vitamin B12 and Folate 10/03/23 E53.8 - Deficiency of other specified B group vitamins Medications: New blood-glucose meter (OneTouch Ultra2 Meter) As directed 1 ea 0RF E11.65 - Type 2 diabetes mellitus with hyperglycemia zolpidem (Ambien) 10 mg PO BEDTIME 30 tabs 2RF 30 days G47.00 - Insomnia, unspecified Changed From lancets (OneTouch UltraSoft Lancets) Test blood sugar once a day 100 ea 3RF E11.9 - Type 2 diabetes mellitus without complications To lancets Test blood sugar once a day 100 ea 3RF E11.9 - Type 2 diabetes mellitus without complications Refilled OneTouch Ultra Test (blood sugar diagnostic) test blood sugar once a day 100 ea 3RF NS E11.9 - Type 2 diabetes mellitus without complications Discontinued zolpidem Discontinued Reason: Doctor's Order 5 mg PO BEDTIME 30 days 30 tabs 3RF G47.00 - Insomnia, unspecified Coding Level of Care Code Est Pt Level 4 (14892) Diagnoses Hip pain, bilateral M25.551; M25.552 Mixed hyperlipidemia E78.2 Hyperlipidemia type: mixed hyperlipidemia Moderate aortic stenosis I35.0 Primary hypertension I10 Hypertension type: primary hypertension Type 2 diabetes mellitus with hyperglycemia, without long-term current use of insulin E11.65 Diabetes mellitus complication status: with hyperglycemia Diabetes mellitus prison insulin use: without rat exterminator use Colostomy in place Z93.3 Neuropathy G62.9 Class 1 obesity due to excess calories with serious comorbidity and body mass index (BMI) of 34.0 to 34.9 in adult E66.09; Z68.34 Body mass index: BMI 34.0-34.9 Obesity classification: adult class 1 (BMI 30 - 34.9) Obesity type: due to excess calories Serious obesity comorbidity presence: with serious comorbidity
[2023-10-03 14:09] VITALS: BP 130/66; PULSE 68; O2SAT 95; BMI 31.9
== END 2023-10-03 14:58 | disposition home or self-care (01) ==
PROVIDERS: PCP Nurse Practitioner Family; Visit Provider Physician Assistant
DX: E11.65 Type 2 diabetes mellitus with hyperglycemia (principal)
CPT/HCPCS: 83036; 99214

== ENCOUNTER 2023-10-15 12:57 | Emergency (ER) | payer MEDICARE, SELFPAY ==
--- NOTE | ~2023-10-15 | XR_ITS ---
EXAMINATION: XR CHEST CLINICAL INFORMATION: Weakness COMPARISON: Chest 04/22/2022 TECHNIQUE: AP upright portable view of the chest was obtained. 1:35 PM FINDINGS: The lungs are mildly well expanded. There is increased opacity at the left lung base which may be a combination of atelectasis, infiltrate and/or pleural effusion. The right lung is clear. No right pleural effusion. Possible mild enlargement of the cardiac silhouette. Calcification of the thoracic arch indicative of atherosclerotic disease. No acute osseous abnormality. XR/XR chest 1V IMPRESSION: Left lower lobe atelectasis, infiltrate and/or pleural effusion.
--- NOTE | ~2023-10-15 | CT_ITS ---
EXAMINATION: CT HEAD WITHOUT CONTRAST CLINICAL INFORMATION: Head trauma dizziness COMPARISON: None TECHNIQUE: Contiguous axial imaging was performed from the skull base to vertex without intravenous administration of contrast. This CT examination was performed using dose optimization techniques as appropriate, variously including the following: *Automated exposure control *Adjustment of mA and/or kV according to patient size (this includes techniques or standardized protocols for targeted exams where dose is matched to indication/reason for exam; i.e. extremities or head) *Use of iterative reconstruction technique DLP: 680.33 mGy-cm FINDINGS: Patient motion artifact slightly limits evaluation. There is no evidence of acute intracranial hemorrhage or territorial infarction. Chronic white matter small vessel ischemic changes. Cerebral atrophy with commensurate ventricular changes. No abnormal mass effect or midline shift is seen. [place] to white matter differentiation is well preserved. No extra-axial fluid collections are identified. The ventricles are normal in size. There is no abnormal attenuation within the brain parenchyma. Hyperostosis frontalis interna. The osseous structures and soft tissues are normal. The mastoid air cells and visualized portions of the paranasal sinuses are well aerated. Prominent atherosclerotic calcifications. CT/CT cervical spine wo IV con IMPRESSION: 1. Patient motion artifact slightly limits evaluation. 2. No acute intracranial pathology. 3. Chronic white matter small vessel ischemic changes. EXAMINATION: Noncontrast CT scan of the cervical spine. INDICATION: Trauma COMPARISON: None. TECHNIQUE: Helical, multidetector axial images were obtained from the occiput to the upper thorax. Coronal and sagittal reformats of the cervical spine were provided for interpretation. DLP: 391.97 mGy-cm FINDINGS: No acute fractures or dislocations of the cervical spine are seen. Straightening the normal cervical curvature. Grade 1 anterolisthesis of C3 on C4. Multilevel degenerative changes. Anatomic alignment and positioning of the vertebral bodies and posterior elements is noted. The atlantoaxial joint and craniovertebral articulations are normal without evidence of subluxation. There is no prevertebral soft tissue swelling. The thyroid gland and visualized portions of the lung apices and mediastinum are unremarkable. Atherosclerotic calcifications. IMPRESSION: 1. No acute visible fracture or dislocation. 2. Straightening the normal cervical curvature. 3. Grade 1 anterolisthesis of C3 on C4. 4. Multilevel degenerative changes.
[2023-10-15 13:12] VITALS: BP 110/60; BP 177/69; PULSE 100; PULSE 77; RESP 16; TEMP 36.8; O2SAT 96; O2SAT 99; BMI 29.0
--- NOTE | 2023-10-15 13:15 | PC.NURSE ---
pt biba from home d/t unwitnessed fall last night. pt states she was in her room when she felt dizzy/fell to the floor. pt down on ground for unknown amount of time. pt found on ground by pt's brother. upon ED arrival - pt a&ox3 but seems to be pleasantly confused. per ems, family members of pt state increase in falls recently. no sob/wob noted. respirations even and unlabored. plan of care ongoing. call bruce placed within reach.
--- NOTE | 2023-10-15 13:25 | ECG_ITS ---
Test Reason : WEAKNESS Blood Pressure : / mmHG Vent. Rate : 085 BPM Atrial Rate : 085 BPM P-R Int : 182 ms QRS Dur : 072 ms QT Int : 386 ms P-R-T Axes : 020 -01 005 degrees QTc Int : 459 ms Poor data quality Possible Sinus rhythm with Premature supraventricular complexes Nonspecific ST abnormality Abnormal ECG No previous ECGs available Referred By: Edelmira Millan Electronically Signed By:HUSSEIN MCGINNIS MD
--- NOTE | 2023-10-15 13:28 | ED.FALL ---
HPI - Fall General Chief Complaint: Fall Stated Complaint: DIZZY,MULIT FALLS THIS WEEK,UNK DOWN TIME TODAY Time Seen by Provider: 10/15/23 13:04 Source: patient and EMS Mode of arrival: EMS Limitations: no limitations History of Present Illness HPI Narrative: 83 yo female with PMH of aortic stenosis, HLD, CKD, HTN, hypothyroidism, DM, poor balance and hx of falls. She notes over the past week she has been falling more denies headstrike or LOC not on thinners. Brother found her on the floor this AM after unknown amount of downtime since last night. Patient has no complaints states this has been an issue for a while. I reviewed her PCP notes and it states she reports dizziness frequently, insomnia, has fallen, also is taking ambien at night 10mg what was started on 10/02 increased from 5mg. complaint: fall Onset (ago): week(s) (1) Fall from: standing Fall witnessed: no Place fall occurred: home Loss of consciousness: none Prolonged down time: unclear Symptoms prior to fall: dizziness Context: tripped/slipped and history of frequent falls Severity: mild Quality: aching Associated symptoms (after fall): denies Related Data Home Medications ?Medication ?Instructions ?Recorded ?Confirmed levothyroxine 112 mcg tablet 112 mcg PO DAILY 09/24/23 10/03/23 rosuvastatin 5 mg tablet 5 mg PO DAILY 09/24/23 10/03/23 Previous Rx's ?Medication ?Instructions ?Recorded CPAP (CPAP Machine/Device) #1 ea 12/27/21 calcium carbonate 500 mg-vitamin 1 tab PO DAILY #90 tabs 04/19/22 D3 5 mcg (200 unit) tablet (Calcium 500 + D) fluticasone propionate 50 2 spray intranasal DAILY #16 grams 04/19/22 mcg/actuation nasal spray,suspension folic acid 1 mg tablet 1 mg PO DAILY #90 tabs 04/19/22 lisinopril 5 mg tablet 5 mg PO DAILY #90 tabs 04/19/22 metformin 500 mg tablet 500 mg PO DAILY #90 tabs 04/19/22 paroxetine HCl 30 mg tablet 30 mg PO DAILY #90 tabs 04/19/22 cholecalciferol (vitamin D3) 50 50 mcg PO DAILY #90 caps 05/29/22 mcg (2,000 unit) capsule diclofenac sodium 1 % topical gel 2 g topical QID #100 grams 06/05/23 (Aleve (diclofenac)) alpha lipoic acid 600 mg tablet 600 mg PO BID 30 days #60 tabs 07/04/23 magnesium oxide 250 mg PO BID 30 days #60 tabs 07/04/23 miscellaneous medical supply 1 ea miscellaneous DAILY 99 days 09/20/23 #1 ea OneTouch Ultra Test (blood sugar #100 ea 10/03/23 diagnostic) blood-glucose meter (OneTouch #1 ea 10/03/23 Ultra2 Meter) lancets #100 ea 10/03/23 zolpidem 10 mg tablet (Ambien) 10 mg PO BEDTIME 30 days #30 tabs 10/03/23 Allergies Allergy/AdvReac Type Severity Reaction Status Date / Time No Known Allergies Allergy Mild NKA Verified 10/15/23 13:13 Review of Systems Review of Systems: Constitutional : No Fever, No Chills, No Fatigue ENT/Mouth : No sore throat, No Rhinorrhea Eyes: No Eye Pain, No Swelling, No Redness Cardiovascular : No Chest Pain, No SOB, No Dyspnea on Exertion Respiratory : No Cough, No Sputum Gastrointestinal : No Nausea, No Vomiting, No Diarrhea, No abdominal Pain Genitourinary : No Dysuria, No Urinary Frequency, No Hematuria, Musculoskeletal : No joint pain, No Myalgias, No Joint Swelling Skin : No Skin Lesions, No rash Neuro : No Weakness, No Numbness, pos Dizziness, no Headache Psych : No Anxiety/Panic, No Depression All other systems reviewed and are negative PMFSH Past Medical History Attestation statement: The following information was validated with the patient. Source: old records reviewed Medical History Aortic stenosis Heart murmur CKD (chronic kidney disease) stage 3, GFR 30-59 ml/min Vitamin D deficiency Vitamin B 12 deficiency Poor balance Hypothyroidism HTN (hypertension) DM type 2 (diabetes mellitus, type 2) Surgical History S/P repair of inguinal hernia Hx of decompressive lumbar laminectomy H/O: hysterectomy S/P colon resection Family History Family History Father Prostate cancer Mother Hypertension Social History Social History Household Members Other:: lives alone, does not drive, no children Housing: Other Housing Other:: [facility] Alcohol intake: never Patient Tobacco Use Status: Never used Tobacco Smoked in Last 30 Days: No e-Cigarette/Vaping Use: Never Used Second Hand Smoke Exposure: No Use of substances other than those prescribed or required for medical reasons: No Advance Directives: No Advance Directives Information Provided: Yes service: No Current occupational status: retired Cognitive needs: Yes (walker ) Hearing needs: No Vision needs: Yes (glasses) Physical Exam Vital Signs: Vital Signs: Last Vital Signs Temp 98 F 10/15/23 14:52 Pulse 72 10/15/23 14:52 Resp 18 10/15/23 14:52 BP 151/76 H 10/15/23 14:52 Pulse Ox 93 10/15/23 14:52 O2 Del Method Room Air 10/15/23 14:52 BMI result Body Mass Index 29.0 Appearance: Alert. Oriented X3. No acute distress. Eyes: Pupils equal, round and reactive to light. ENT: Pharynx normal. atraumatic Neck: Normal inspection. Neck supple. CVS: Normal heart rate and rhythm. Pulses normal. Respiratory: No respiratory distress. Breath sounds normal. Abdomen: Soft and nontender. Skin: Skin warm and dry. Normal skin color. Normal skin turgor. Extremities: No lower extremity edema. healed abrasions on both knees, and L toes. Neuro: Oriented X 3. No motor deficit. No sensory deficit. Medications Administered Discontinued Medications Generic Name Dose Route Start Last Admin Trade Name Erin PRN Reason Stop Dose Admin Potassium Chloride 40 meq 10/15/23 14:26 10/15/23 14:39 Potassium Chloride Packet 20 Meq Packet PO 10/15/23 14:27 40 meq ONCE ONE Administration Medical Decision Making Medical Decision Making MDM Narrative: 83 yo female with PMH of aortic stenosis, HLD, CKD, HTN, hypothyroidism, DM, poor balance and hx of falls here with c/o falling again being found down on the ground she reports to me a history of frequent falls. She denies CP/SOB, GIB symptoms, fevers, chills. N/V/D. No headstrike or LOC. At this time labs, CPK, UA, CXR, CT head/cspine. CXR shows possible pneumonia but she denies obvious infectious symptoms will start on augmentin and observe if work up negative PT/CM consult Differential Diagnosis Differential Diagnoses: The differential diagnosis associated with the presentation includes falls, FTT, injury, lyte abnormality Admission/Observation Consideration of admission/observation: Escalation of care including admission/observation considered physician observation started at 337pm pending PT/CM input Consult Healthcare Provider Management of the patient was discussed with: Can Technician Lab Data [facility] Lab Attestation statement: I reviewed the patient's lab results. 10/15/23 13:50 10/15/23 13:50 Labs: Lab Results 10/15/23 10/15/23 Range/Units 13:50 13:58 WBC 5.7 (4.8-10.8) X10*3/uL RBC 4.58 (4.20-5.50) X10*6/uL Hgb 13.3 (12.0-16.0) g/dl Hct 41.5 (37.0-47.0) % MCV 90.6 (80.0-98.0) fL MCH 29.0 (27.0-33.0) pg MCHC 32.0 (31.0-35.0) g/dl RDW 13.8 (11.0-16.0) % Plt Count 255 (160-400) X10*3/uL MPV 10.4 (9.4-12.3) fL Immature Gran % (Auto) 0.2 (0.0-0.4) % Neut % (Auto) 63.6 (45-73) % Lymph % (Auto) 18.7 L (20-40) % [place] % (Auto) 12.2 H (2-11) % Eos % (Auto) 4.4 H (0-4) % Baso % (Auto) 0.9 (0-2) % Lymph # (Auto) 1.1 L (1.2-4.9) X10*3/uL [place] # (Auto) 0.7 (0.1-1.2) X10*3/uL Eos # (Auto) 0.3 (0.0-0.4) X10*3/uL Baso # (Auto) 0.1 (0.0-0.2) X10*3/uL Abs Immat Gran (auto) 0.01 (0.00-0.03) X10*3/uL Absolute Neuts (auto) 3.6 (2.0-8.3) x10*3/uL Absolute Nucleated RBC 0.000 (0.0-0.012) X10*3/uL Nucleated RBC % (auto) 0.0 (0.0-0.2) /100WBC PT 12.2 (11.1-13.3) SEC INR 1.0 (0.9-1.1) VBG pH 7.40 (7.32-7.43) VBG pCO2 47 mmHg VBG pO2 37 mmHg VBG HCO3 29 H (22-26) mmol/L VBG O2 Saturation 57.0 % VBG Base Excess 4.3 mmol/L Sodium 142 (135-145) mmol/L Potassium 3.2 L (3.3-5.1) mmol/L Chloride 106 (96-108) mmol/L Carbon Dioxide 27 (22-29) mmol/L Anion Gap 12 (12-20) BUN 15 (9-16) mg/dL Creatinine 0.80 (0.5-1.4) mg/dL Estim Creat Clear Calc 56.4 Estimated GFR > 60 Random Glucose 140 H (60-115) mg/dL Calcium 9.5 (8.4-10.2) mg/dL Magnesium 1.9 (1.6-2.6) mg/dL Total Bilirubin 0.5 (0.0-1.0) mg/dL Direct Bilirubin 0.2 (0.0-0.5) mg/dL AST 16 (5-31) U/L ALT 11 (0-31) U/L Alkaline Phosphatase 90 (39-117) U/L Total Creatine Kinase 76 (26-140) U/L Troponin I High Sens 14.6 (<3.5-17.0) ng/L B-Natriuretic Peptide 94 (<100) pg/mL Total Protein 6.8 (6.5-8.0) g/dL Albumin 3.7 (3.5-5.0) g/dL Lipase 76 (8-78) U/L Procalcitonin 0.04 ng/mL TSH 0.77 (0.32-4.0) uIU/mL Urine Color Yellow Urine Appearance Clear Urine pH 6.0 (5.0-9.0) Ur Specific [place] 1.010 (1.005-1.025) Urine Protein Negative (Neg-Trace) mg/dL Urine Glucose (UA) Negative (Negative) mg/dL Urine Ketones Negative (Negative) mg/dL Urine Blood Trace H (Negative) Urine Nitrite Negative (Negative) Ur Leukocyte Esterase Trace H (Negative) Urine RBC 0-2 (0-2) /HPF Urine WBC 0-5 (0-5) /HPF Ur Squamous Epith Cells 0-2 (0-2) /HPF Urine Bacteria None Seen (None Seen) Hyaline Casts 0-2 (0-2) /LPF Independent Interpretation I performed an independent interpretation of an: EKG, Plain X-Ray (?pneumonia LLL) and CT Scan (no trauma) Interpretation: initial EKG - tracing poor appeared to be NSR with PACs Rate: 78 Rhythm: NSR Kent: normal Normal P waves. Normal NELSON. Normal QRS complex. ST T wave : normal no SUNNI qTC: 426 prior studies: no acute ischemia The study has been interpreted contemporaneously by me. . Radiology Impression Discussion of test interpretation with radiology: I have reviewed the radiologist's reading. Independent Historian Clinical information obtained from an independent historian. History obtained from or confirmed by: EMS External Record Review External record reviewed: Inpatient record Discharge Plan Discharge Clinical Impression: Falls frequently, Acute hypokalemia Pneumonia Qualifiers: Pneumonia type: due to unspecified organism Laterality: left Lung location: lower lobe of lung Qualified Code(s): J18.9 - Pneumonia, unspecified organism Patient Disposition: Still a Patient Prescriptions: No Action (DME) CPAP Machine/Device Device See Rx Instructions .Route Qty: 1 0RF Rx Instructions: As directed-Auto setting 8-20, heated tube and humidification calcium carbonate-vitamin D3 [Calcium 500 + D] 500 mg-5 mcg (200 unit) tablet 1 tab PO DAILY Qty: 90 3RF folic acid 1 mg tablet 1 mg PO DAILY Qty: 90 3RF lisinopril 5 mg tablet 5 mg PO DAILY Qty: 90 3RF metformin 500 mg tablet 500 mg PO DAILY Qty: 90 3RF paroxetine HCl 30 mg tablet 30 mg PO DAILY Qty: 90 3RF fluticasone propionate 50 mcg/actuation spray,suspension 2 spray intranasal DAILY Qty: 16 5RF miscellaneous [place] [facility] [place] miscellaneous DAILY 99 Days Qty: 1 0RF Rx Instructions: NEED FOR SIZED TO FIT DIABETIC SHOES cholecalciferol (vitamin D3) 50 mcg (2,000 unit) capsule 50 mcg PO DAILY Qty: 90 1RF alpha lipoic acid 600 mg tablet 600 mg PO BID 30 Days Qty: 60 1RF magnesium oxide 250 mg magnesium tablet 250 mg PO BID 30 Days Qty: 60 3RF diclofenac sodium [Aleve (diclofenac)] 1 % gel 2 g topical QID Qty: 100 0RF Rx Instructions: apply to single elbow, wrist or hand; for hand includes palm/fingers/back of hand zolpidem [Ambien] 10 mg tablet 10 mg PO BEDTIME 30 Days Qty: 30 2RF (DME) lancets [facility] [place] Rx Instructions .Route Qty: 100 3RF Rx Instructions: Test blood sugar once a day (DME) OneTouch Ultra Test Strip See Rx Instructions .Route Qty: 100 3RF Rx Instructions: test blood sugar once a day (DME) blood-glucose meter [OneTouch Ultra2 Meter] [facility] [place] Instructions .Route Qty: 1 0RF Rx Instructions: As directed levothyroxine 112 mcg tablet 112 mcg PO DAILY rosuvastatin 5 mg tablet 5 mg PO DAILY Print Language: Tamazight
--- NOTE | 2023-10-15 13:55 | PC.NURSE ---
20gIV placed in the right AC - labs as well as urine obtained/sent to lab. ekg performed by tech. plan of care ongoing.
[2023-10-15 14:00] LABS: MANUAL DIFF FLAG NO
[2023-10-15 14:03] LABS: Basophils Absolute Auto 0.1 X10*3/uL (0.0-0.2); Basophils Percent Auto 0.9 % (0-2); Eosinophils Absolute Auto 0.3 X10*3/uL (0.0-0.4); Eosinophils Percent Auto 4.4 % (0-4); Hematocrit 41.5 % (37.0-47.0); Hemoglobin 13.3 g/dl (12.0-16.0); Imm Gran Abs Auto 0.01 X10*3/uL (0.00-0.03); Imm Gran Pct Auto 0.2 % (0.0-0.4); Lymphocytes Absolute Auto 1.1 X10*3/uL (1.2-4.9); Lymphocytes Percent Auto 18.7 % (20-40); Mean Corpuscular Volume 90.6 fL (80.0-98.0); Mean Platelet Volume 10.4 fL (9.4-12.3); Monocytes Absolute Auto 0.7 X10*3/uL (0.1-1.2); Monocytes Percent Auto 12.2 % (2-11); Neutrophils Absolute Auto 3.6 x10*3/uL (2.0-8.3); Neutrophils Percent Auto 63.6 % (45-73); Platelet Count 255 X10*3/uL (160-400); Red Blood Count 4.58 X10*6/uL (4.20-5.50); Red Cell Distribution Width 13.8 % (11.0-16.0); White Blood Count 5.7 X10*3/uL (4.8-10.8)
[2023-10-15 14:03] LABS: Venous Blood Gas Refer to POC result
[2023-10-15 14:04] LABS: Appearance Urine Clear; Color Urine Yellow; Glucose Urine UA Negative (Negative); Leukocyte Esterase Urine Trace (Negative); Nitrite Urine Negative (Negative); UMIC TRIGGER UACC YES; Urine Blood Trace (Negative); Urine Ketones Negative (Negative); Urine Protein Negative (Neg-Trace)
[2023-10-15 14:04] LABS: VBG Base Excess 4.3 mmol/L; VBG HCO3 29 mmol/L (22-26); VBG pCO2 47 mmHg; VBG pO2 37 mmHg
[2023-10-15 14:06] LABS: Bacteria Urine None Seen (None Seen); Hyaline Casts Urine 0-2 /LPF (0-2); RBC Urine 0-2 /HPF (0-2); Squamous Epithelial Cell Urine 0-2 /HPF (0-2); WBC Urine 0-5 /HPF (0-5)
--- NOTE | 2023-10-15 14:06 | PC.NURSE ---
pt to CT at this time.
[2023-10-15 14:16] LABS: Prothrombin Time 12.2 SEC (11.1-13.3)
[2023-10-15 14:21] LABS: Troponin-I High Sensitivity 14.6 ng/L (<3.5-17.0)
[2023-10-15 14:22] LABS: B Type Natriuretic Peptide 94 pg/mL (<100)
[2023-10-15 14:23] LABS: Alanine Aminotransferase 11 U/L (0-31); Albumin Level 3.7 g/dL (3.5-5.0); Alkaline Phosphatase 90 U/L (39-117); Anion Gap 12 (12-20); Aspartate Amino Transferase 16 U/L (5-31); Bilirubin Direct 0.2 mg/dL (0.0-0.5); Bilirubin Total 0.5 mg/dL (0.0-1.0); Blood Urea Nitrogen 15 mg/dL (9-16); Calcium 9.5 mg/dL (8.4-10.2); Carbon Dioxide 27 mmol/L (22-29); Chloride 106 mmol/L (96-108); Creatinine Clr Calc Pharmacy 56.4; Estimated Glomerular Filt Rate > 60; Glucose Random 140 mg/dL (60-115); Lipase 76 U/L (8-78); Magnesium 1.9 mg/dL (1.6-2.6); Potassium 3.2 mmol/L (3.3-5.1); Sodium 142 mmol/L (135-145); Total Protein 6.8 g/dL (6.5-8.0)
[2023-10-15 14:35] LABS: TSH reflex Free T4 0.77 uIU/mL (0.32-4.0)
[2023-10-15 14:37] LABS: Procalcitonin 0.04 ng/mL
[2023-10-15] MEDS: Potassium Chloride Packet 20 MEQ PACKET 40 MEQ PO (14:39)
[2023-10-15 14:52] VITALS: BP 151/76; PULSE 72; RESP 18; TEMP 36.6; O2SAT 93
--- NOTE | 2023-10-15 15:40 | ECG_ITS ---
Test Reason : repeat ekg Blood Pressure : / mmHG Vent. Rate : 078 BPM Atrial Rate : 078 BPM P-R Int : 184 ms QRS Dur : 072 ms QT Int : 374 ms P-R-T Axes : 057 015 012 degrees QTc Int : 426 ms Normal sinus rhythm Normal ECG When compared with ECG of 15-OCT-2023 13:42, Premature supraventricular complexes are no longer Present Referred By: Edelmira Millan Electronically Signed By:HUSSEIN MCGINNIS MD
--- NOTE | 2023-10-15 17:53 | PC.NURSE ---
CM speaking w/ pt in regards to plan of care at this time. family members bedside for support. plan of care ongoing. call bruce placed within reach.
[2023-10-15 19:05] VITALS: BP 159/83; PULSE 83; RESP 22; TEMP 36.3; O2SAT 96
--- NOTE | 2023-10-15 19:11 | PC.NURSE ---
this rn assumed care of pt. pt sitting in stretcher eating dinner, no acute distress noted. vss.
--- NOTE | 2023-10-15 19:59 | PC.NURSE ---
pt placed in hospital bed for comfort, purewick placed.
[2023-10-15] MEDS: Amoxicillin/Potassium Clav 875 MG TABLET PO (20:19)
--- NOTE | 2023-10-15 20:50 | PC.NURSE ---
Assumed care of pt. pt lying on hospital bed, no acute distress at this time. Purewik in place, Ostomy with no complications.
--- NOTE | 2023-10-15 21:25 | MHC.CM.ED ---
Addendum entered by Suzie Garcia 10/15/23 23:05: PCP is Nitin Stephens per patient. Patient states she has a HCP at home and at the [facility]. HCP is her brother in law and sister, Jose Motley ([phone]). Chrissy would rather not complete another HCP at this time. She would like home PT if acute rehab is not possible. Original Note: CM met with patient and her brother in law and sister-Jose Motley. Pt sister helps her with shopping and doctors visits. They are both concerned about the patients fall. Pt fell and does not remember the specifics, but was unable to get up and brother in law found her. He told me that they call her and if she doesn't answer after several calls, they go to her apartment. Pt lives in senior housing in [place]. There is an elevator. She uses a rollator and had services with [facility], however patient states she stopped the services last month. 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 Pt states she is independent with ADL's. Family has some concerns, as the shower is not a walk in, but she does have rails and a shower chair. Will task EC to re-evaluate for services. CM spoke at length with patient regarding use of a 'Life Alert . Pt could also benefit from a CHIEF TECHNICIAN X RAY for shower assistance, as patient tells me sometimes she doesn't feel well enough to shower. Pt was getting MOW from [facility]. There is no HCP on file. Pt has seen and Nitin Stephens in the past. PT is pending for the morning. Will refer to acute rehabs, as patient has Medicare and no qualifying stay. CM will follow for discharge needs.
--- NOTE | 2023-10-15 21:46 | PHA.MEDREC ---
Pharmacy Consult ? Medication Reconciliation Pharmacy has completed the medication reconciliation. Patient confirmed medications based on claim history and past medications record. Patient confirmed medications that per claim history have not been filled recently. Unable to confirm with [facility] as they are currently closed. Abbey Cespedes, PharmD
--- NOTE | 2023-10-15 23:41 | PC.NURSE ---
Emptied pt colostomy appliance, no complications.
[2023-10-16] VITALS (7 sets, daily range): BP systolic 119–193; BP diastolic 56–82; PULSE 74–79; RESP 12–18; TEMP 36.6–36.8; O2SAT 94–96
--- NOTE | 2023-10-16 05:54 | PC.NURSE ---
Pt is 83F with hx of falls presenting for fall/unsteady gait. Pt with negative workup, slight HypoKm given oral for replacement. PT/CM for possible rehab placement. Hx colon resection, has ostomy. purewik in place for urinary incontinence/fall risk. Ambulates with walker at baseline. AxO x4, mild sundowning.
[2023-10-16] MEDS: metFORMIN HCl 500 MG TABLET PO (08:47)
[2023-10-16] MEDS: Cholecalciferol (Vitamin D3) 25 MCG TABLET 50 MCG PO (08:47)
[2023-10-16] MEDS: lisinopriL 5 MG TABLET PO (08:47)
[2023-10-16] MEDS: Amoxicillin/Potassium Clav 875 MG TABLET PO (08:47)
[2023-10-16] MEDS: Folic Acid 1 MG TABLET PO (08:47)
[2023-10-16] MEDS: Atorvastatin Calcium 40 MG TABLET PO (08:47)
[2023-10-16] MEDS: Magnesium Oxide 400 MG TABLET 200 MG PO (08:48)
--- NOTE | 2023-10-16 08:52 | PC.NURSE ---
medicated per the MAR - takes pills whole with water. purewick removed from patient, encouraged to ring to get up to the commode. patient up with one assist to the commode. call bruce within reach, offering no complaints at this time.
[2023-10-16 09:51] LABS: IDNOW Serial# 08D9AD1C
[2023-10-16 09:52] LABS: COVID-19 Test Negative (Negative)
--- NOTE | 2023-10-16 09:55 | MHC.CM.ED ---
Addendum entered by Jael Wiggins 10/16/23 12:04: [facility] is unable to offer a bed. Original Note: Patient remains in ER. Physical therapy eval completed. Acute rehab is recommended. [facility] is not able to offer a bed at this time. Clinical updates sent to [facility]. Continue to monitor for d/c needs.
--- NOTE | 2023-10-16 11:59 | PC.NURSE ---
Assumed care of this patient at 1100, patient resting quietly on hospital bed at this time, just wants to sleep , patient states she normally does her ostomy care herself, will ring for supplies when needed.
--- NOTE | 2023-10-16 12:23 | MHC.CM.ED ---
No acute rehab beds could be offered at this time. Met with patient in regards to discharge planning. Patient is hoping she will be able to stay with her brother and sister in law. T/W attempted to speak with Jose via telephone at [phone]. Left message requesting return telephone call. Continue to monitor for d/c needs.
--- NOTE | 2023-10-16 14:50 | MHC.CM.ED ---
Met with patient, sister Elly and [id number] Venkatesh in regards to discharge planning. All agreeable to patient returning home with [facility] for residential and physical therapy.Referral made to [facility] at their request. Venkatesh and Elly will transport patient home. Anel CHAU and Marina LUQUE aware. Continue to monitor for d/c needs.
== END 2023-10-16 15:52 | disposition home or self-care (01) ==
PROVIDERS: Physician Assistant Medical; Emergency Provider Emergency Medicine; PCP Physician Assistant
DX: J18.9 Pneumonia, unspecified organism (principal); R29.6 Repeated falls; E87.6 Hypokalemia; E11.22 Type 2 diabetes mellitus with diabetic chronic kidney disease; I12.9 Hypertensive chronic kidney disease with stage 1 through stage 4 chronic kidney disease, or unspecified chronic kidney disease; N18.30 Chronic kidney disease, stage 3 unspecified
CPT/HCPCS: 36415; 70450; 71045; 72125; 80048; 80076; 81001; 81003; 82550; 82803; 83690; 83735; 83880; 84145; 84443; 84484; 85025; 85610; 87635; 93005; 97162; 99285

== ENCOUNTER → 2023-10-15 13:25 | Outpatient (BNV) | payer MEDICARE, SELFPAY | PROVIDERS: Emergency Provider Emergency Medicine; Visit Provider Internal Medicine Cardiovascular Disease | DX: R94.31 Abnormal electrocardiogram [ECG] [EKG] (principal) | CPT/HCPCS: 93010 ==

== ENCOUNTER 2023-10-18 11:39 | Inpatient (IN) | payer MEDICARE, SELFPAY ==
[2023-10-18] VITALS (10 sets, daily range): BP systolic 149–201; BP diastolic 54–92; PULSE 67–133; RESP 15–20; TEMP 36.4–37.1; O2SAT 97–98; BMI 31.8
--- NOTE | ~2023-10-18 | FL_ITS ---
EXAMINATION: XR FLUOROSCOPY WITH IMAGES CLINICAL INFORMATION: Fluoroscopic guidance for ERCP COMPARISON: CT scan abdomen and pelvis 10/18/2023 TECHNIQUE: Fluoroscopy Supervised By: Dr. Wyatt. Fluoroscopy Time: 385.0 seconds. Cumulative Dose: 156.0 mGy. DAP: Not recorded by fluoroscopy unit Images: 4. FINDINGS: 4 images demonstrate performance of an ERCP under fluoroscopic guidance. Full details can be seen in Dr. Wyatt's report. FL/FL guidance in OR IMPRESSION: ERCP was performed under fluoroscopic guidance.
--- NOTE | ~2023-10-18 | XR_ITS ---
EXAMINATION: XR CHEST CLINICAL INFORMATION: Weakness. Recent pneumonia. COMPARISON: Chest radiograph dated 10/15/2023. TECHNIQUE: 2 views of the chest were obtained. FINDINGS: The cardiomediastinal silhouette is normal in size and configuration. There is mild calcific atherosclerotic disease of the aorta. There is improved aeration at the left lung base. There is no new consolidation. No pleural effusion or pneumothorax. There are degenerative changes of the thoracic spine. XR/XR chest 2V IMPRESSION: Improved left lower lobe aeration. No new consolidation. No pleural effusion.
--- NOTE | ~2023-10-18 | CT_ITS ---
EXAMINATION: CT ABDOMEN AND PELVIS WITH CONTRAST CLINICAL INFORMATION: Weakness. Elevated lipase. Failure to thrive. COMPARISON: None available. TECHNIQUE: Multidetector volumetric images were obtained from the superior aspect of the liver through the pubic symphysis following administration 85 mL of Omnipaque 350 intravenous contrast. Sagittal and coronal reformatted images were obtained on the technologist's workstation. Oral contrast: No This CT examination was performed using dose optimization techniques as appropriate, variously including the following: *Automated exposure control *Adjustment of mA and/or kV according to patient size (this includes techniques or standardized protocols for targeted exams where dose is matched to indication/reason for exam; i.e. extremities or head) *Use of iterative reconstruction technique DLP: 601 mGy-cm FINDINGS: LUNG BASES: No pulmonary consolidation or pleural effusion. There is atherosclerotic calcification of coronary arteries and partially visualized thoracic aorta. There are calcifications of the aortic valve. HEPATOBILIARY: Liver has normal size and contour. Small simple cyst is present in the anterior left hepatic lobe. No suspicious hepatic lesion. The observation of the relatively small, mildly thick-walled structure of the gallbladder fossa requires clinical correlation. This could represent a chronically contracted gallbladder containing a few calcifications along its wall in the setting of chronic cholecystitis, or a gallbladder remnant after prior partial cholecystectomy. The common duct is dilated up to 1.3 cm transverse diameter and a few calculi are visible within the distal CBD. The intrahepatic ducts are mildly dilated. PANCREAS: Mildly atrophied. No edema, pancreatic ductal dilatation or mass. SPLEEN: Normal. ADRENAL GLANDS: Normal. KIDNEYS AND URETERS: Kidneys have normal size and cortical thickness. No perinephric fluid collection, urolithiasis or hydroureteronephrosis. BLADDER: Normal. BOWEL, PERITONEUM AND ABDOMINAL WALL: No dilated bowel loops. No focal bowel wall thickening, mesenteric fat stranding or free fluid. The appendix is normal. Multiple diverticula of the colon without evidence of diverticulitis. Prior abdominoperineal resection, and small bowel loops have descended into the lower pelvis in region previously occupied by sigmoid colon and rectum. Descending colostomy of the left abdominal wall without parastomal hernia or abdominal wall fluid collection. There has been application of mesh to the anterior abdominal wall. VASCULATURE: Atherosclerosis of the abdominal aorta and iliac arteries without aneurysm. Inferior vena cava is normal. LYMPH NODES: No pathologic sized lymph nodes in the abdomen or pelvis. No inguinal lymphadenopathy. PELVIC VISCERA: Status post hysterectomy. No adnexal mass or pelvic free fluid. MUSCULOSKELETAL: Severe facet osteoarthritis at L4-L5 and L5-S1. Multilevel degenerative disc disease of the lumbar spine and multilevel lumbar spinal canal stenosis, including severe canal stenosis at L3-L4. Multilevel vertebral subluxations, including mild retrolisthesis at L1-L2, L2-L3 and L3-L4 and 0.5 cm of grade 1 anterolisthesis at L4-L5. Old mild compression fracture of T12 vertebral body. CT/CT abdomen pelvis w IV con IMPRESSION: * The gallbladder is either chronically contracted (and has mildly thickened wall from possible chronic cholecystitis) and/or the patient has previously undergone partial cholecystectomy. * Choledocholithiasis is present, common duct is dilated up to a maximum of 1.3 cm transverse diameter, and intrahepatic ducts are mildly dilated. 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 * Colonic diverticulosis without diverticulitis.
--- NOTE | 2023-10-18 12:06 | ECG_ITS ---
Test Reason : WEAKNESS Blood Pressure : / mmHG Vent. Rate : 070 BPM Atrial Rate : 070 BPM P-R Int : 178 ms QRS Dur : 078 ms QT Int : 406 ms P-R-T Axes : 057 003 018 degrees QTc Int : 438 ms Sinus rhythm with Premature supraventricular complexes Otherwise normal ECG When compared with ECG of 15-OCT-2023 15:47, Premature supraventricular complexes are now Present Referred By: Edelmira Millan Electronically Signed By:HUSSEIN MCGINNIS MD
--- NOTE | 2023-10-18 12:07 | ED_ITS ---
HPI - Weakness General Chief complaint: Fall Stated complaint: DIZZY,NO FALL PER PT,FOUND ON FLOOR BY [facility] PER EMS Time Seen by Provider: 10/18/23 12:04 Source: patient, EMS and old records reviewed Mode of arrival: EMS Limitations: no limitations History of Present Illness HPI Narrative: 83 yo female with PMH of aortic stenosis, HLD, CKD, HTN, hypothyroidism, DM, poor balance and hx of falls who has been falling for a while she was just seen here and worked up for fall - sent home with [facility] care. She was treated at that time for LLL pneumonia with augmentin and her K was supplemented. She was discharged on augmentin Rx unclear if she picked it up. She comes in with c/o again feeling weak and her HAY SORTER had to lower her to the floor - she did hit head on windowsill but denies LOC or neck pain. She denies abdominal pain n/v chest pain sob. MD Complaint: generalized weakness and difficulty walking Onset (ago): week(s) Duration: intermittent Location: generalized Migration: none Severity: moderate Quality: dull Relieving factors: movement Exacerbating factors: none Context: history of similar Associated symptoms: denies other symptoms Related Data Home Medications ?Medication ?Instructions ?Recorded ?Confirmed calcium carbonate 500 mg PO DAILY 10/15/23 10/15/23 fluticasone propionate 50 2 spray intranasal DAILY PRN 10/15/23 10/15/23 mcg/actuation nasal Congestion spray,suspension levothyroxine 125 mcg tablet 125 mcg PO DAILY 10/15/23 10/15/23 magnesium oxide 250 mg PO DAILY 10/15/23 10/15/23 rosuvastatin 10 mg tablet 10 mg PO DAILY 10/15/23 10/15/23 Previous Rx's ?Medication ?Instructions ?Recorded CPAP (CPAP Machine/Device) #1 ea 12/27/21 folic acid 1 mg tablet 1 mg PO DAILY #90 tabs 04/19/22 lisinopril 5 mg tablet 5 mg PO DAILY #90 tabs 04/19/22 metformin 500 mg tablet 500 mg PO DAILY #90 tabs 04/19/22 cholecalciferol (vitamin D3) 50 50 mcg PO DAILY #90 caps 05/29/22 mcg (2,000 unit) capsule OneTouch Ultra Test (blood sugar #100 ea 10/03/23 diagnostic) blood-glucose meter (OneTouch #1 ea 10/03/23 Ultra2 Meter) lancets #100 ea 10/03/23 zolpidem 10 mg tablet (Ambien) 10 mg PO BEDTIME 30 days #30 tabs 10/03/23 amoxicillin 875 mg-potassium 1 tab PO BID 10 days #20 tabs 10/16/23 clavulanate 125 mg tablet Allergies Allergy/AdvReac Type Severity Reaction Status Date / Time No Known Allergies Allergy Mild NKA Verified 10/18/23 11:56 Review of Systems 2 Review of Systems: Constitutional : No Fever, No Chills, No Fatigue ENT/Mouth : No sore throat, No Rhinorrhea Eyes: No Eye Pain, No Swelling, No Redness Cardiovascular : No Chest Pain, No SOB, No Dyspnea on Exertion Respiratory : No Cough, No Sputum Gastrointestinal : No Nausea, No Vomiting, No Diarrhea, No abdominal Pain Genitourinary : No Dysuria, No Urinary Frequency, No Hematuria, Musculoskeletal : No joint pain, No Myalgias, No Joint Swelling Skin : No Skin Lesions, No rash Neuro : No Weakness, No Numbness, No Dizziness, no Headache Psych : No Anxiety/Panic, No Depression All other systems reviewed and are negative [facility] Past Medical History Attestation statement: The following information was validated with the patient. Source: old records reviewed Medical History Aortic stenosis Heart murmur CKD (chronic kidney disease) stage 3, GFR 30-59 ml/min Vitamin D deficiency Vitamin B 12 deficiency Poor balance Hypothyroidism HTN (hypertension) DM type 2 (diabetes mellitus, type 2) Surgical History S/P repair of inguinal hernia Hx of decompressive lumbar laminectomy H/O: hysterectomy S/P colon resection Family History Family History Father Prostate cancer Mother Hypertension Social History Social History Household Members Other:: lives alone, does not drive, no children Housing: Other Housing Other:: [facility] Alcohol intake: never Patient Tobacco Use Status: Never used Tobacco Smoked in Last 30 Days: No e-Cigarette/Vaping Use: Never Used Second Hand Smoke Exposure: No Use of substances other than those prescribed or required for medical reasons: No Advance Directives: Yes Advance Directives Information Provided: No Advance Directives on File: No Do you have a plan to hurt others: No Plan service: No Current occupational status: retired Cognitive needs: Yes (walker ) Hearing needs: No Vision needs: Yes (glasses) Physical Exam 2 Vital Signs: Vital Signs: Last Vital Signs Temp 98.7 F 10/18/23 18:13 Pulse 126 H 10/18/23 18:04 Resp 20 10/18/23 11:52 BP 161/90 H 10/18/23 18:04 BMI result Body Mass Index 31.8 Appearance: Alert. Oriented X3 but does take while to think about it. No acute distress. Eyes: Pupils equal, round and reactive to light. ENT: Pharynx normal. Neck: Normal inspection. Neck supple. CVS: Normal heart rate and rhythm. Pulses normal. Respiratory: No respiratory distress. Breath sounds normal. Abdomen: Soft and nontender. Skin: Skin warm and dry. Normal skin color. Normal skin turgor. Extremities: No lower extremity edema. No calf ttp Neuro: Oriented X 3. No motor deficit. No sensory deficit. Course Course Course Narrative: + orthostatics - IVF ordered Reevaluation(s) Reevaluation #1: + lipase in setting of FTT CT scan ordered Reevaluation #2: + CBD stones at this time given age will order lactic cultures and start on cefepime Reevaluation #3: message sent to Dr. Jimenez Medications Administered Generic Name Dose Route Start Last Admin Trade Name Freq PRN Reason Stop Dose Admin Sodium Chloride 1,000 mls @ 100 mls/hr 10/18/23 18:15 10/18/23 18:10 Ns IVCONT 100 mls/hr .Q10H MONICA Administration Discontinued Medications Generic Name Dose Route Start Last Admin Trade Name Freq PRN Reason Stop Dose Admin Sodium Chloride 1,000 mls @ 999 mls/hr 10/18/23 13:45 10/18/23 17:53 Ns IV 10/18/23 14:45 Infused .Q1H1M MONICA Infusion Iohexol 100 ml 10/18/23 16:53 10/18/23 16:53 Iohexol 350 Mg/Ml 100 Ml Infus..Btl IV 10/18/23 16:54 85 ml ONCE ONE Administration Medical Decision Making Medical Decision Making [facility] Narrative: 83 yo female with PMH of aortic stenosis, HLD, CKD, HTN, hypothyroidism, DM, poor balance and hx of falls at this time will need repeat labs, EKG, orthostatic vital signs, CXR - no head or neck pain no signs of trauma she is alert and oriented x 3. If negative will instruct she is not able to return home with [facility]NA given her high fall risk and repeat visits for falls. Has small bump on back of head but not on thinners and no headache, no neck pain GCS 15 was lowered down and hit on windowsill doubt she has ICH. Has no midline ttp doubt cervical spine fracture Differential Diagnosis Differential Diagnoses: The differential diagnosis associated with the presentation includes frequent falls, abnormal lytes, orthostatic hypotension Admission/Observation Consideration of admission/observation: Escalation of care including admission/observation considered HR after fluids goes from 70 to 150s at this time will admit given recent falls and recurrent visits + orthostatics + choledocholithiasis Consult Healthcare Provider Management of the patient was discussed with: Hospitalist (will admit) and Applied Computer Science Professor (Dr. Jimenez aware will follow) Lab Data [facility] Lab Attestation statement: I reviewed the patient's lab results. 10/18/23 13:22 10/18/23 13:22 Labs: Lab Results 10/18/23 10/18/23 Range/Units 13:22 14:18 WBC 5.2 (4.8-10.8) X10*3/uL RBC 4.62 (4.20-5.50) X10*6/uL Hgb 13.6 (12.0-16.0) g/dl Hct 41.4 (37.0-47.0) % MCV 89.6 (80.0-98.0) fL MCH 29.4 (27.0-33.0) pg MCHC 32.9 (31.0-35.0) g/dl RDW 14.0 (11.0-16.0) % Plt Count 251 (160-400) X10*3/uL MPV 10.3 (9.4-12.3) fL Immature Gran % (Auto) 0.2 (0.0-0.4) % Neut % (Auto) 60.6 (45-73) % Lymph % (Auto) 20.8 (20-40) % [place] % (Auto) 12.4 H (2-11) % Eos % (Auto) 5.0 H (0-4) % Baso % (Auto) 1.0 (0-2) % Lymph # (Auto) 1.1 L (1.2-4.9) X10*3/uL [place] # (Auto) 0.6 (0.1-1.2) X10*3/uL Eos # (Auto) 0.3 (0.0-0.4) X10*3/uL Baso # (Auto) 0.1 (0.0-0.2) X10*3/uL Abs Immat Gran (auto) 0.01 (0.00-0.03) X10*3/uL Absolute Neuts (auto) 3.1 (2.0-8.3) x10*3/uL Absolute Nucleated RBC 0.000 (0.0-0.012) X10*3/uL Nucleated RBC % (auto) 0.0 (0.0-0.2) /100WBC PT 11.6 (11.1-13.3) SEC INR 1.0 (0.9-1.1) Sodium 143 (135-145) mmol/L Potassium 3.9 D (3.3-5.1) mmol/L Chloride 106 (96-108) mmol/L Carbon Dioxide 27 (22-29) mmol/L Anion Gap 14 (12-20) BUN 22 H (9-16) mg/dL Creatinine 0.96 (0.5-1.4) mg/dL Estim Creat Clear Calc 45.7 Estimated GFR 55 Random Glucose 133 H (60-115) mg/dL Calcium 9.8 (8.4-10.2) mg/dL Magnesium 2.0 (1.6-2.6) mg/dL Total Bilirubin 0.7 (0.0-1.0) mg/dL Direct Bilirubin 0.3 (0.0-0.5) mg/dL AST 18 (5-31) U/L ALT 12 (0-31) U/L Alkaline Phosphatase 87 (39-117) U/L Troponin I High Sens 13.9 (<3.5-17.0) ng/L Total Protein 7.0 (6.5-8.0) g/dL Albumin 3.8 (3.5-5.0) g/dL Lipase 277 H (8-78) U/L Urine Color Yellow Urine Appearance Clear Urine pH 5.5 (5.0-9.0) Ur Specific [place] 1.015 (1.005-1.025) Urine Protein Negative (Neg-Trace) mg/dL Urine Glucose (UA) Negative (Negative) mg/dL Urine Ketones Negative (Negative) mg/dL Urine Blood Negative (Negative) Urine Nitrite Negative (Negative) Ur Leukocyte Esterase Negative (Negative) Independent Interpretation I performed an independent interpretation of an: EKG, Plain X-Ray (resolved LL opacity) and CT Scan Interpretation: Rate: 70 Rhythm: NSR Villalba: left Normal P waves. Normal NELSON. Normal QRS complex. ST T wave : normal no SUNNI qTC: 438 prior studies: no acute ischemia The study has been interpreted contemporaneously by me. . Radiology Impression Discussion of test interpretation with radiology: I have reviewed the radiologist's reading. Independent Historian Clinical information obtained from an independent historian. History obtained from or confirmed by: Spouse External Record Review External record reviewed: Inpatient record Discharge Plan Discharge Clinical Impression: Recurrent falls, Orthostatic dizziness, Choledocholithiasis Patient Disposition: Admitted As Inpatient Print Language: Mohawk
--- NOTE | 2023-10-18 13:18 | MHC.CM.ED ---
Received notification from [facility] that patient is active with their agency. Return referral made via [facility] so [facility] can follow for d/c needs.
[2023-10-18 13:28] LABS: MANUAL DIFF FLAG NO
[2023-10-18 13:31] LABS: Basophils Absolute Auto 0.1 X10*3/uL (0.0-0.2); Eosinophils Absolute Auto 0.3 X10*3/uL (0.0-0.4); Hematocrit 41.4 % (37.0-47.0); Hemoglobin 13.6 g/dl (12.0-16.0); Imm Gran Abs Auto 0.01 X10*3/uL (0.00-0.03); Imm Gran Pct Auto 0.2 % (0.0-0.4); Lymphocytes Absolute Auto 1.1 X10*3/uL (1.2-4.9); Lymphocytes Percent Auto 20.8 % (20-40); Mean Corpuscular HGB Conc 32.9 g/dl (31.0-35.0); Mean Corpuscular Hemoglobin 29.4 pg (27.0-33.0); Mean Corpuscular Volume 89.6 fL (80.0-98.0); Mean Platelet Volume 10.3 fL (9.4-12.3); Monocytes Absolute Auto 0.6 X10*3/uL (0.1-1.2); Monocytes Percent Auto 12.4 % (2-11); Neutrophils Absolute Auto 3.1 x10*3/uL (2.0-8.3); Neutrophils Percent Auto 60.6 % (45-73); Platelet Count 251 X10*3/uL (160-400); Red Blood Count 4.62 X10*6/uL (4.20-5.50); White Blood Count 5.2 X10*3/uL (4.8-10.8)
[2023-10-18 13:42] LABS: Prothrombin Time 11.6 SEC (11.1-13.3)
[2023-10-18 13:44] LABS: Alanine Aminotransferase 12 U/L (0-31); Albumin Level 3.8 g/dL (3.5-5.0); Alkaline Phosphatase 87 U/L (39-117); Anion Gap 14 (12-20); Aspartate Amino Transferase 18 U/L (5-31); Bilirubin Direct 0.3 mg/dL (0.0-0.5); Bilirubin Total 0.7 mg/dL (0.0-1.0); Blood Urea Nitrogen 22 mg/dL (9-16); Calcium 9.8 mg/dL (8.4-10.2); Carbon Dioxide 27 mmol/L (22-29); Chloride 106 mmol/L (96-108); Creatinine Clr Calc Pharmacy 45.7; Estimated Glomerular Filt Rate 55; Glucose Random 133 mg/dL (60-115); Lipase 277 U/L (8-78); Potassium 3.9 mmol/L (3.3-5.1); Sodium 143 mmol/L (135-145)
[2023-10-18 13:51] LABS: Troponin-I High Sensitivity 13.9 ng/L (<3.5-17.0)
[2023-10-18] MEDS: 0.9 % Sodium Chloride 1,000 ML 999 ML IV (14:11)
[2023-10-18 14:28] LABS: Appearance Urine Clear; Color Urine Yellow; Glucose Urine UA Negative (Negative); Leukocyte Esterase Urine Negative (Negative); Nitrite Urine Negative (Negative); PH 5.5 (5.0-9.0); Specific Gravity - Urine 1.015 (1.005-1.025); Urine Blood Negative (Negative); Urine Ketones Negative (Negative); Urine Protein Negative (Neg-Trace)
[2023-10-18] MEDS: iohexoL 350 MG/ML 100 ML INFUS..BTL IV (16:53)
[2023-10-18] MEDS: 0.9 % Sodium Chloride 1,000 ML 100 ML IVCONT (18:10)
--- NOTE | 2023-10-18 18:13 | PC.NURSE ---
Provider notified of ortho vital results, patient to be moved into room 4, family aware
--- NOTE | 2023-10-18 19:59 | PHA.MEDREC ---
Pharmacy Consult ? Medication Reconciliation Pharmacy has completed the medication reconciliation. This [facility] completed med rec on 10/14 when patient was in physician observation, utilized medical records for med rec. Indu SanchezD
--- NOTE | 2023-10-18 20:03 | MHC.EDTECH ---
This tech took over care of patient at 1900,hourly rounds and vitals completed,patient ate 50% of supper, Patient was incont. of a large amount of urine,patient was cleaned and bed linen was changed,Pure Wick applied to keep patient clean and dry. Belongings list completed and copy placed in chart. call bruce in reach
--- NOTE | 2023-10-18 20:42 | P.HPHOSP_ITS ---
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 Patient initially presented to the ED 3 days prior on 10/14 and was seen for evaluation of dizziness and multiple falls at home this past week. Was treated for lower lobe pneumonia and placed on her physician observation but discharged home with [facility] services as she did not meet inpatient criteria or could be placed to STR. Earlier today patient again was experiencing lightheadedness/dizziness and weakness with standing. MINER PLACER was with her and had to lower her to the floor. Patient herself complains she has ?balance problems? and difficulty walking. The patient is a poor historian and is unable to state exactly when symptoms started or when she last fell. Denies nausea, vomiting, fever, chills. No abdominal pain. Denies chest pain/pressure, palpitations. No shortness of breath or difficulty breathing. Reports no changes to bowel or bladder habits. In the ED pt was tachycardic up to 133 and hypertensive up to 201/83. Orthostatics positive. Labs were significant for elevated lipase of 277, otherwise grossly unremarkable. No leukocytosis. No significant electrolyte abnormalities. Renal function around baseline. Hepatic function baseline. UA negative for UTI. CXR showed improved left lower lobe aeration with no new consolidation and no pleural effusion. CT?of abd/pelvis found choledocholithiasis with CBD dilated up to 1.3 cm and intrahepatic ducts mildly dilated. Pancreas mildly atrophied, but no evidence of acute pancreatitis. EKG demonstrated sinus rhythm with premature supraventricular complexes but no evidence of significant ST elevations or depressions. Pt was treated with 2 L IVF and cefepime. Pt will be admitted to the hospital for treatment and further evaluation of choledocholithiasis with likely ERCP tomorrow. Review of Systems 2 Review of Systems: Generalized weakness Difficulty walking Lightheadedness/dizziness Denies fever, chills, nausea, vomiting No abdominal pain Denies chest pain/pressure, palpitations No shortness of breath [facility] Medical History Aortic stenosis Heart murmur CKD (chronic kidney disease) stage 3, GFR 30-59 ml/min Vitamin D deficiency Vitamin B 12 deficiency Poor balance Hypothyroidism HTN (hypertension) DM type 2 (diabetes mellitus, type 2) Family History Father Prostate cancer Mother Hypertension Surgical History S/P repair of inguinal hernia Hx of decompressive lumbar laminectomy H/O: hysterectomy S/P colon resection Social History Household Members Other:: lives alone, does not drive, no children Housing: Other Housing Other:: [facility] Alcohol intake: never Patient Tobacco Use Status: Never used Tobacco Smoked in Last 30 Days: No e-Cigarette/Vaping Use: Never Used Second Hand Smoke Exposure: No Use of substances other than those prescribed or required for medical reasons: No Advance Directives: Yes Advance Directives Information Provided: No Advance Directives on File: No Do you have a plan to hurt others: No Plan Nutrition Risks: No Nutritional Risk service: No Current occupational status: retired Cognitive needs: Yes (walker ) Hearing needs: No Vision needs: Yes (glasses) Meds Allergies Allergy/AdvReac Type Severity Reaction Status Date / Time No Known Allergies Allergy Mild NKA Verified 10/18/23 11:56 Active Medications: Current Medications Sodium Chloride (Ns) 1,000 mls @ 100 mls/hr IVCONT .Q10H MONICA Last Admin: 10/18/23 18:10 Dose: 100 mls/hr Home Medications ?Medication ?Instructions ?Recorded ?Confirmed ?Last Taken ?Type calcium carbonate 500 mg PO DAILY 10/15/23 10/18/23 Unknown History fluticasone propionate 50 2 spray intranasal DAILY PRN 10/15/23 10/18/23 Unknown History mcg/actuation nasal Congestion spray,suspension levothyroxine 125 mcg tablet 125 mcg PO DAILY 10/15/23 10/18/23 Unknown History magnesium oxide 250 mg PO DAILY 10/15/23 10/18/23 Unknown History rosuvastatin 10 mg tablet 10 mg PO DAILY 10/15/23 10/18/23 Unknown History Physical Exam 2 Vital Signs and Narrative: Vital Signs: Last Vital Signs Temp 98.0 F 10/18/23 19:50 Pulse 70 10/18/23 19:50 Resp 20 10/18/23 19:50 BP 170/72 H 10/18/23 19:50 Pulse Ox 97 10/18/23 19:50 O2 Del Method Room Air 10/18/23 19:50 BMI result Body Mass Index 31.8 Constitutional: Alert, in no acute distress. Mental Status: Oriented to person, time, and mostly to place. Eyes: Pupils are equal, round, and reactive to light. Ear, Nose, and Throat: Oropharynx clear, mucous membranes moist. Ears and nose without deformities. Trachea midline. Respiratory: Clear to auscultation bilaterally. No wheezing, rales, or rhonchi. Cardiovascular: S1, S2 regular. 3/6 murmur heard along right sternal border radiating to left carotid. Gastrointestinal: Abdomen soft, non-tender, non-distended. Normal bowel sounds. Colostomy in place. Neurologic: Cranial nerves II-XII are grossly intact bilaterally. No focal neurological deficits. Moves all extremities spontaneously. Skin: Warm, dry. Extremities: No edema. Psychiatric: Normal mood and affect. Results Labs 10/18/23 13:22 10/18/23 13:22 Labs: Laboratory Results - last 24 hr 10/18/23 10/18/23 13:22 14:18 MCV 89.6 MCH 29.4 MCHC 32.9 RDW 14.0 Plt Count 251 MPV 10.3 Immature Gran % (Auto) 0.2 Neut % (Auto) 60.6 Lymph % (Auto) 20.8 [place] % (Auto) 12.4 H Eos % (Auto) 5.0 H Baso % (Auto) 1.0 Lymph # (Auto) 1.1 L [place] # (Auto) 0.6 Eos # (Auto) 0.3 Baso # (Auto) 0.1 Abs Immat Gran (auto) 0.01 Absolute Neuts (auto) 3.1 Absolute Nucleated RBC 0.000 Nucleated RBC % (auto) 0.0 PT 11.6 INR 1.0 Anion Gap 14 Estim Creat Clear Calc 45.7 Estimated GFR 55 Random Glucose 133 H Calcium 9.8 Magnesium 2.0 Total Bilirubin 0.7 Direct Bilirubin 0.3 AST 18 ALT 12 Alkaline Phosphatase 87 Troponin I High Sens 13.9 Total Protein 7.0 Albumin 3.8 Lipase 277 H Urine Color Yellow Urine Appearance Clear Urine pH 5.5 Ur Specific [place] 1.015 Urine Protein Negative Urine Glucose (UA) Negative Urine Ketones Negative Urine Blood Negative Urine Nitrite Negative Ur Leukocyte Esterase Negative Imaging Radiologist's Impressions: Impressions Chest X-Ray 10/18/23 13:52 IMPRESSION: Improved left lower lobe aeration. No new consolidation. No pleural effusion. Abdomen/Pelvis CT 10/18/23 17:01 IMPRESSION: * The gallbladder is either chronically contracted (and has mildly thickened wall from possible chronic cholecystitis) and/or the patient has previously undergone partial cholecystectomy. * Choledocholithiasis is present, common duct is dilated up to a maximum of 1.3 cm transverse diameter, and intrahepatic ducts are mildly dilated. 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 * Colonic diverticulosis without diverticulitis. 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 Pt will be admitted to the hospital for treatment and further evaluation of choledocholithiasis with likely ERCP tomorrow. Choledocholithiasis CT of abdomen and pelvis found CBD dilated up to 1.3 cm and mild dilation of intra hepatic ducts, lipase elevated Patient asymptomatic: Denies nausea, vomiting, abdominal pain; no fever Clear liquid diet for now, NPO after midnight for likely ERCP in the morning GI consult Orthostatic hypotension Orthostatics positive Patient received IVF in ED Recheck orthostatics tomorrow Lactic acidosis Patient's lactic acid 2.7 Likely secondary to metformin use not sepsis Patient does not meet sepsis criteria: Tachycardia upon standing, but no tachypnea, fever, or leukocytosis Community-acquired pneumonia Diagnosed with left lower lobe pneumonia on 10/15/2023 CXR today showed improved left lower lobe aeration Patient denies SOB, cough Continue Augmentin Frequent falls at home In the setting of above Treat as above PT consult Non-insulin dependent type 2 diabetes Hold [address] on SSI, diabetic diet once diet advanced HTN Continue lisinopril HLD Statin Hypothyroidism Continue levothyroxine Full Code Attending:?Dr. Dupree DVT Prophylaxis: Pneumatic boots Pt will require a hospitalization of at least two nights for treatment of?choledocholithiasis with specialist consultation with Gastroenterology and likely ERCP in the morning. Quality Stroke Does the patient have a stroke diagnosis?: No VTE Prior VTE?: No VTE Risk Level:: Medical - moderate - high VTE Device Contraindication: N/A - Device Ordered VTE Drug Contraindication: Treatment Not Indicated
--- NOTE | 2023-10-18 20:50 | MHC.EDTECH ---
Blood Cultures and lactic drawn and sent to lab.
[2023-10-18 21:09] LABS: Lactic Acid 2.7 mmol/L (0.5-2.0)
[2023-10-18] MEDS: cefEPime HCl 1 GM in 0.9 % Sodium Chloride 50 ML IV (21:11)
--- NOTE | 2023-10-18 21:11 | PC.NURSE ---
critical lab lactic 2.7 reported to KANDI Tam
[2023-10-18 21:44] LABS: Cancel Lactic Acid Canceled
[2023-10-18] MEDS: Amoxicillin/Potassium Clav 875 MG TABLET PO (22:05)
[2023-10-19] VITALS (18 sets, daily range): BP systolic 131–194; BP diastolic 57–89; PULSE 74–88; RESP 12–20; TEMP 36–37.2; O2SAT 92–100
--- NOTE | 2023-10-19 02:49 | MHC.EDTECH ---
Hourly rounds and vitals completed,patient is clean and dry and is resting comfortably at this time call bruce in reach
[2023-10-19] MEDS: 0.9 % Sodium Chloride 1,000 ML 100 ML IVCONT ×2 (04:34→18:19)
--- NOTE | 2023-10-19 04:56 | PC.NURSE ---
pt requests to sign out AMA as she would like her brother to come pick her up. pt sts I have plenty of help where I live and plan to call my doctor in the am. Messaged hospitalist and she will come down to talk to her
--- NOTE | 2023-10-19 05:19 | PC.NURSE ---
called brother with no success
--- NOTE | 2023-10-19 05:24 | PC.NURSE ---
provider at bedside, pt signed AMA form . Sts will return if worse will follow up with provider tomorrow
--- NOTE | 2023-10-19 06:12 | MHC.EDTECH ---
Hourly rounds and vitals completed,emptied 1200MLS from suction canister,call bruce in reach
--- NOTE | 2023-10-19 06:15 | PC.NURSE ---
pt lucio brother he will warehouse picker in approx an hour
[2023-10-19 08:53] LABS: Glucose, Whole Blood 119 mg/dL (60-115)
[2023-10-19] MEDS: Magnesium Oxide 400 MG TABLET 200 MG PO (08:55)
[2023-10-19] MEDS: Amoxicillin/Potassium Clav 875 MG TABLET PO (08:55)
[2023-10-19] MEDS: Folic Acid 1 MG TABLET PO (08:55)
[2023-10-19] MEDS: Cholecalciferol (Vitamin D3) 25 MCG TABLET 50 MCG PO (08:55)
[2023-10-19] MEDS: lisinopriL 5 MG TABLET PO (08:55)
[2023-10-19] MEDS: Atorvastatin Calcium 40 MG TABLET PO (08:55)
[2023-10-19 09:31] LABS: Lactic Acid 1.7 mmol/L (0.5-2.0)
[2023-10-19 09:34] LABS: Anion Gap 14 (12-20); Blood Urea Nitrogen 11 mg/dL (9-16); Calcium 9.4 mg/dL (8.4-10.2); Carbon Dioxide 23 mmol/L (22-29); Chloride 107 mmol/L (96-108); Creatinine Clr Calc Pharmacy 60.9; Estimated Glomerular Filt Rate > 60; Glucose Random 128 mg/dL (60-115); Lipase 32 U/L (8-78); Potassium 3.7 mmol/L (3.3-5.1); Sodium 140 mmol/L (135-145)
--- NOTE | 2023-10-19 09:52 | MHC.CM.PN ---
pt lived alone and states she had no servies but has had [facility] in the past pgysiical therpy recommending str referrals will be made
--- NOTE | 2023-10-19 10:21 | MHC.CLN ---
NUTRITION CONSULT FOR WEAKNESS. [place]=15 THIS AM. NO OPEN AREAS NOTED. NPO STATUS. PER PROVIDER, DIABETIC DIET ONCE ADVANCED. RD TO FOLLOW UP WEEKLY.
--- NOTE | 2023-10-19 11:14 | P.PNIM_ITS ---
Subjective Subjective Date of Service: 10/19/23 Interval History: weakness, no abdominal pain Physical Exam 2 Vital Signs: Vital Signs: Last Vital Signs Temp 98.9 F 10/19/23 08:00 Pulse 84 10/19/23 08:41 Resp 16 10/19/23 08:00 BP 159/80 H 10/19/23 08:41 Pulse Ox 99 10/19/23 08:41 O2 Del Method Room Air 10/19/23 08:00 BMI result Body Mass Index 31.8 General: AO X 3, no acute distress Resp: CTA bilateral, no accessory muscles used CVS: S1,S2,RRR GI: soft, non tender, non distended Neuro: motor grossly intact, alert Psych: appropriate affect, appropriate insight Objective Data Active Medications Acetaminophen (Acetaminophen 325 Mg Tablet) 650 mg PO Q6H PRN PRN Reason: Pain, Mild (Pain Scale 1-3) Atorvastatin Calcium (Atorvastatin Calcium 40 Mg Tablet) 40 mg PO DAILY [facility] Last Admin: 10/19/23 08:55 Dose: 40 mg Documented By: FABRICE Benzonatate (Benzonatate 100 Mg Capsule) 100 mg PO TID PRN PRN Reason: Cough Calcium Carbonate (Calcium Carbonate 500 Mg Tablet) 500 mg PO DAILY [facility] Last Admin: 10/19/23 08:55 Dose: 500 mg Documented By: FABRICE Docusate Sodium (Docusate Sodium 100 Mg Capsule) 100 mg PO DAILY PRN PRN Reason: Constipation Fluticasone Propionate (Fluticasone Propionate Nasal 16 Gm [place]) 2 spray NOSTRIL-B DAILY PRN PRN Reason: Congestion Folic Acid (Folic Acid 1 Mg Tablet) 1 mg PO DAILY [facility] Last Admin: 10/19/23 08:55 Dose: 1 mg Documented By: FABRICE Glucose (Glucose Gel 15 Gm Gel..Gram.) 15 gm PO Q15M PRN; Protocol PRN Reason: per Hypoglycemia Standing Ord. Sodium Chloride (Ns) 1,000 mls @ 100 mls/hr IVCONT .Q10H [facility] Last Infusion: 10/19/23 09:08 Dose: 100 mls/hr Documented By: COTEMA Dextrose (D10) 250 mls @ 750 mls/hr IV Q15M PRN; Protocol PRN Reason: per Hypoglycemia Standing Ord. Insulin Human Lispro (Insulin Lispro 100 Unit/Ml 3 Ml Vial) 0 unit SUBCUT QIDACHS [facility]; Protocol Last Admin: 10/19/23 08:54 Dose: Not Given Documented By: RUBENS Non-Admin Reason: No Insulin Coverage Levothyroxine Sodium (Levothyroxine Sodium 125 Mcg Tablet) 125 mcg PO DAILY@0600 [facility] Last Admin: 10/19/23 06:16 Dose: Not Given Documented By: JOAQUÍN Non-Admin Reason: Patient Refused Lisinopril (Lisinopril 5 Mg Tablet) 5 mg PO DAILY [facility]; Protocol Last Admin: 10/19/23 08:55 Dose: 5 mg Documented By: FABRICE Magnesium Oxide (Magnesium Oxide 400 Mg Tablet) 200 mg PO DAILY [facility] Last Admin: 10/19/23 08:55 Dose: 200 mg Documented By: FABRICE Ondansetron HCl (Ondansetron Hcl 4 Mg/2 Ml Vial) 4 mg IVPUSH Q8H PRN PRN Reason: Nausea and Vomiting Sodium Chloride (0.9 % Sodium Chloride Flush 3 Ml Syringe) 3 ml IVFLUSH QSHIFT [facility] Last Admin: 10/19/23 09:08 Dose: Not Given Documented By: RUBENS Non-Admin Reason: IV Running Vitamin D (Cholecalciferol (Vitamin D3) 25 Mcg Tablet) 50 mcg PO DAILY [facility] Last Admin: 10/19/23 08:55 Dose: 50 mcg Documented By: FABRICE Labs 10/18/23 13:22 10/19/23 09:14 Labs: Laboratory Results - last 24 hr 10/18/23 10/18/23 10/18/23 13:22 14:18 20:41 MCV 89.6 MCH 29.4 MCHC 32.9 RDW 14.0 Plt Count 251 MPV 10.3 Immature Gran % (Auto) 0.2 Neut % (Auto) 60.6 Lymph % (Auto) 20.8 [place] % (Auto) 12.4 H Eos % (Auto) 5.0 H Baso % (Auto) 1.0 Lymph # (Auto) 1.1 L [place] # (Auto) 0.6 Eos # (Auto) 0.3 Baso # (Auto) 0.1 Abs Immat Gran (auto) 0.01 Absolute Neuts (auto) 3.1 Absolute Nucleated RBC 0.000 Nucleated RBC % (auto) 0.0 PT 11.6 INR 1.0 Anion Gap 14 Estim Creat Clear Calc 45.7 Estimated GFR 55 POC Glucose Random Glucose 133 H Lactic Acid 2.7 H* Calcium 9.8 Magnesium 2.0 Total Bilirubin 0.7 Direct Bilirubin 0.3 AST 18 ALT 12 Alkaline Phosphatase 87 Troponin I High Sens 13.9 Total Protein 7.0 Albumin 3.8 Lipase 277 H Urine Color Yellow Urine Appearance Clear Urine pH 5.5 Ur Specific [place] 1.015 Urine Protein Negative Urine Glucose (UA) Negative Urine Ketones Negative Urine Blood Negative Urine Nitrite Negative Ur Leukocyte Esterase Negative 10/19/23 10/19/23 08:49 09:14 MCV MCH MCHC RDW Plt Count MPV Immature Gran % (Auto) Neut % (Auto) Lymph % (Auto) [place] % (Auto) Eos % (Auto) Baso % (Auto) Lymph # (Auto) [place] # (Auto) Eos # (Auto) Baso # (Auto) Abs Immat Gran (auto) Absolute Neuts (auto) Absolute Nucleated RBC Nucleated RBC % (auto) PT INR Anion Gap 14 Estim Creat Clear Calc 60.9 Estimated GFR > 60 POC Glucose 119 H Random Glucose 128 H Lactic Acid 1.7 Calcium 9.4 Magnesium Total Bilirubin Direct Bilirubin AST ALT Alkaline Phosphatase Troponin I High Sens Total Protein Albumin Lipase 32 Urine Color Urine Appearance Urine pH Ur Specific [place] Urine Protein Urine Glucose (UA) Urine Ketones Urine Blood Urine Nitrite Ur Leukocyte Esterase Assessment and Plan (1) Choledocholithiasis: Status: Acute Plan 83F PMH , htn, hlod, dm, hypothyroid, history of colectomy s/p colostomy presented with fall, Found To have choledocholithiasis Acute choledocholithiasis Plan for ERCP today GI eval Orthostatic hypotension Received IV fluids, monitor Recent pneumonia diagnosed 10/15/2023 completed augmentin Frequent falls PT recommending str Diabetes Insulin sliding scale Hypertension Lisinopril Hyperlipidemia Statin Hypothyroid Synthroid DVT prophylaxis mechaincal due to pending ercp full code Reason for continued hospitalization: Plan for ERCP Quality Stroke Does the patient have a stroke diagnosis?: No VTE Prior VTE?: No VTE Risk Level:: Medical - moderate - high VTE Device Contraindication: N/A - Device Ordered VTE Drug Contraindication: Treatment Not Indicated
[2023-10-19 11:17] LABS: Glucose, Whole Blood 135 mg/dL (60-115)
--- NOTE | 2023-10-19 11:29 | P.CDIM_ITS ---
PROVIDER RESPONSE TEXT: To clarify, the appropriate diagnosis supported by the clinical indicators: Acute QUERY TEXT: PHYSICIAN'S DOCUMENTATION REQUEST Date of Query: 10/19/2023 11:22 AM EDT Patient Name: Chrissy Bejarano Admit Date: 10/19/2023 Dear Jesse Hyatt, A review of the medical record indicates additional documentation may be needed. Please review below and update the documentation accordingly. Clinical Indicators: H&P 10/17 - Plan: Lactic acidosis Patient's lactic acid 2.7 Likely secondary to metformin use not sepsis Clarify which of the following accurately represents the acuity of the lactic acidosis: Acute Acute on chronic Other (explain) Clinically unable to determine (explain) Thank you, Belinda Lew, CCS, CDIS Use of terms such as suspected, likely, concern for, or probable (associated with a specific diagnosi s that is being evaluated, monitored, or treated as if it exists) are acceptable and can be coded in the inpatient se tting, when documented at the time of discharge. Please use your independent medical judgment in providing your response. THIS QUERY IS PART OF THE PERMANENT MEDICAL RECORD
--- NOTE | 2023-10-19 12:18 | PM.EVENT ---
Event Note Date of Service: 10/19/23 Event Note: GI Consult-Full note dictated. History from patient, family(sister and [id number], and Mrs. Motley), and EMR. Imp: Asymptomatic choledocholithiasis seen on CT scan. She does have a slightly elevated lipase, but is asymptomatic in that regard and has no sign of pancreatitis on her CT scan. Rec: ERCP today with Dr. Wyatt. Full consent has been obtained from the patient, as well as from her family on speaker phone, including risks of bleeding, perforation, cholangitis, and pancreatitis. Patient and family are comfortable with this plan. Thanks Time Spent With Patient Time: Total time managing care of this patient today ____ minutes.
--- NOTE | 2023-10-19 12:24 | MHC.SHP ---
Pre-Procedural Eval Section A - 24 Hr Update-Section A only Date of Service: 10/19/23 The patient is an INPATIENT: Yes The patient has been examined within 24 hours of the surgical procedure. The History & Physical has been completed within 30 days and I have reviewed it.: Yes Section B - Complete if H&P > 30 days Chief Complaint: Choledocholithiasis Allergies: Allergies Allergy/AdvReac Type Severity Reaction Status Date / Time No Known Allergies Allergy Mild NKA Verified 10/18/23 11:56 Plan I have reviewed the history and physical and performed a pertinent physical examination on my patient. No changes have occurred unless specified. Time Spent With Patient Time: Total time managing care of this patient today ____ minutes.
--- NOTE | 2023-10-19 13:09 | HO.ANESPROP2 ---
HPI - Anesthesia Eval Consult details Narrative: ercp today [facility] Active Problems Active Problems: All Active Problems Choledocholithiasis (Acute) Orthostatic dizziness (Acute) Recurrent falls (Acute) PAC (premature atrial contraction) (Acute) Obese (Acute) Neuropathy (Acute) Colostomy in place (Acute) Ectopic atrial rhythm (Acute) Aortic stenosis (Acute) Insomnia (Acute) Impacted cerumen of both ears (Acute) Hyperlipemia (Acute) Moderate aortic stenosis (Acute) Hip pain, bilateral (Acute) Sinusitis (Acute) Ankle pain, right (Acute) Acute bronchitis (Acute) Sciatica (Acute) CKD (chronic kidney disease) stage 3, GFR 30-59 ml/min (Acute) Vitamin D deficiency (Acute) Vitamin B 12 deficiency (Acute) Poor balance (Acute) Hypothyroidism (Acute) HTN (hypertension) (Acute) DM type 2 (diabetes mellitus, type 2) (Acute) Past Medical History Medical History Aortic stenosis Heart murmur CKD (chronic kidney disease) stage 3, GFR 30-59 ml/min Vitamin D deficiency Vitamin B 12 deficiency Poor balance Hypothyroidism HTN (hypertension) DM type 2 (diabetes mellitus, type 2) Family History Family History Father Prostate cancer Mother Hypertension Family history of problems with anesthesia: No Surgical History Surgical History S/P repair of inguinal hernia Hx of decompressive lumbar laminectomy H/O: hysterectomy S/P colon resection History of Problems with Anesthesia: No Social History Social History Household Members: None Household Members Other:: lives alone, does not drive, no children Housing: Apartment Housing Other:: [facility] center Do you presently have visiting nurse or other home services: No Alcohol intake: never Patient Tobacco Use Status: Never used Tobacco Smoked in Last 30 Days: No e-Cigarette/Vaping Use: Never Used Second Hand Smoke Exposure: No Use of substances other than those prescribed or required for medical reasons: No Currently Displaying Signs/Symptoms of Drug Intoxication Withdrawal: No Have you been hit, kicked, punched, or otherwise hurt by someone within the past year? If so, by whom?: No Do you feel safe in your current relationship?: No Current Relationship Is there a partner from a previous relationship who is making you feel unsafe now?: No Are you made to feel afraid or neglected: No Are you DNR?: No Advance Directives: Yes Advance Directives Information Provided: No Advance Directives on File: No Advance Directives Date on File: 10/19/23 Do you have a plan to hurt others: No Plan Recently lost weight without trying: No Eating poorly because of decreased appetite: No Nutrition Risks: No Nutritional Risk Patient : No : No Poor oral hygiene: No service: No Current occupational status: retired Cognitive needs: Yes (walker ) Hearing needs: No Vision needs: Yes (glasses) Meds Allergies Allergy/AdvReac Type Severity Reaction Status Date / Time No Known Allergies Allergy Mild NKA Verified 10/18/23 11:56 Active Medications: Current Medications Acetaminophen (Acetaminophen 325 Mg Tablet) 650 mg PO Q6H PRN PRN Reason: Pain, Mild (Pain Scale 1-3) Atorvastatin Calcium (Atorvastatin Calcium 40 Mg Tablet) 40 mg PO DAILY [facility] Last Admin: 10/19/23 08:55 Dose: 40 mg Benzonatate (Benzonatate 100 Mg Capsule) 100 mg PO TID PRN PRN Reason: Cough Calcium Carbonate (Calcium Carbonate 500 Mg Tablet) 500 mg PO DAILY [facility] Last Admin: 10/19/23 08:55 Dose: 500 mg Docusate Sodium (Docusate Sodium 100 Mg Capsule) 100 mg PO DAILY PRN PRN Reason: Constipation Fluticasone Propionate (Fluticasone Propionate Nasal 16 Gm [place]) 2 spray NOSTRIL-B DAILY PRN PRN Reason: Congestion Folic Acid (Folic Acid 1 Mg Tablet) 1 mg PO DAILY [facility] Last Admin: 10/19/23 08:55 Dose: 1 mg Glucose (Glucose Gel 15 Gm Gel..Gram.) 15 gm PO Q15M PRN; Protocol PRN Reason: per Hypoglycemia Standing Ord. Sodium Chloride (Ns) 1,000 mls @ 100 mls/hr IVCONT .Q10H [facility] Last Infusion: 10/19/23 12:59 Dose: 0 mls/hr Dextrose (D10) 250 mls @ 750 mls/hr IV Q15M PRN; Protocol PRN Reason: per Hypoglycemia Standing Ord. Insulin Human Lispro (Insulin Lispro 100 Unit/Ml 3 Ml Vial) 0 unit SUBCUT QIDACHS [facility]; Protocol Last Admin: 10/19/23 11:18 Dose: Not Given Levothyroxine Sodium (Levothyroxine Sodium 125 Mcg Tablet) 125 mcg PO DAILY@0600 [facility] Last Admin: 10/19/23 06:16 Dose: Not Given Lisinopril (Lisinopril 5 Mg Tablet) 5 mg PO DAILY [facility]; Protocol Last Admin: 10/19/23 08:55 Dose: 5 mg Magnesium Oxide (Magnesium Oxide 400 Mg Tablet) 200 mg PO DAILY [facility] Last Admin: 10/19/23 08:55 Dose: 200 mg Ondansetron HCl (Ondansetron Hcl 4 Mg/2 Ml Vial) 4 mg IVPUSH Q8H PRN PRN Reason: Nausea and Vomiting Sodium Chloride (0.9 % Sodium Chloride Flush 3 Ml Syringe) 3 ml IVFLUSH QSHIFT [facility] Last Admin: 10/19/23 09:08 Dose: Not Given Vitamin D (Cholecalciferol (Vitamin D3) 25 Mcg Tablet) 50 mcg PO DAILY [facility] Last Admin: 10/19/23 08:55 Dose: 50 mcg Home Medications ?Medication ?Instructions ?Recorded ?Confirmed ?Last Taken ?Type calcium carbonate 500 mg PO DAILY 10/15/23 10/18/23 Unknown History fluticasone propionate 50 2 spray intranasal DAILY PRN 10/15/23 10/18/23 Unknown History mcg/actuation nasal Congestion spray,suspension levothyroxine 125 mcg tablet 125 mcg PO DAILY 10/15/23 10/18/23 Unknown History magnesium oxide 250 mg PO DAILY 10/15/23 10/18/23 Unknown History rosuvastatin 10 mg tablet 10 mg PO DAILY 10/15/23 10/18/23 Unknown History Exam Height,Weight and Vital Signs: Height 5 ft 4 in Weight 84.1 kg Last Vital Signs Temp 98.4 F 10/19/23 12:45 Pulse 83 10/19/23 12:45 Resp 18 10/19/23 12:45 BP 194/85 H 10/19/23 12:45 Pulse Ox 95 10/19/23 12:45 O2 Del Method Room Air 10/19/23 12:45 Pertinent Lab Results Pertinent Lab Results: Laboratory Tests 10/18/23 10/18/23 10/18/23 13:22 14:18 20:41 WBC 5.2 RBC 4.62 Hgb 13.6 Hct 41.4 MCV 89.6 MCH 29.4 MCHC 32.9 RDW 14.0 Plt Count 251 MPV 10.3 Immature Gran % (Auto) 0.2 Neut % (Auto) 60.6 Lymph % (Auto) 20.8 [place] % (Auto) 12.4 H Eos % (Auto) 5.0 H Baso % (Auto) 1.0 Lymph # (Auto) 1.1 L [place] # (Auto) 0.6 Eos # (Auto) 0.3 Baso # (Auto) 0.1 Abs Immat Gran (auto) 0.01 Absolute Neuts (auto) 3.1 Absolute Nucleated RBC 0.000 Nucleated RBC % (auto) 0.0 PT 11.6 INR 1.0 Sodium 143 Potassium 3.9 D Chloride 106 Carbon Dioxide 27 Anion Gap 14 BUN 22 H Creatinine 0.96 Estim Creat Clear Calc 45.7 Estimated GFR 55 POC Glucose Random Glucose 133 H Lactic Acid 2.7 H* Calcium 9.8 Magnesium 2.0 Total Bilirubin 0.7 Direct Bilirubin 0.3 AST 18 ALT 12 Alkaline Phosphatase 87 Troponin I High Sens 13.9 Total Protein 7.0 Albumin 3.8 Lipase 277 H Urine Color Yellow Urine Appearance Clear Urine pH 5.5 Ur Specific [place] 1.015 Urine Protein Negative Urine Glucose (UA) Negative Urine Ketones Negative Urine Blood Negative Urine Nitrite Negative Ur Leukocyte Esterase Negative 10/19/23 10/19/23 10/19/23 08:49 09:14 11:12 WBC RBC Hgb Hct MCV MCH MCHC RDW Plt Count MPV Immature Gran % (Auto) Neut % (Auto) Lymph % (Auto) [place] % (Auto) Eos % (Auto) Baso % (Auto) Lymph # (Auto) [place] # (Auto) Eos # (Auto) Baso # (Auto) Abs Immat Gran (auto) Absolute Neuts (auto) Absolute Nucleated RBC Nucleated RBC % (auto) PT INR Sodium 140 Potassium 3.7 Chloride 107 Carbon Dioxide 23 Anion Gap 14 BUN 11 Creatinine 0.72 Estim Creat Clear Calc 60.9 Estimated GFR > 60 POC Glucose 119 H 135 H Random Glucose 128 H Lactic Acid 1.7 Calcium 9.4 Magnesium Total Bilirubin Direct Bilirubin AST ALT Alkaline Phosphatase Troponin I High Sens Total Protein Albumin Lipase 32 Urine Color Urine Appearance Urine pH Ur Specific [place] Urine Protein Urine Glucose (UA) Urine Ketones Urine Blood Urine Nitrite Ur Leukocyte Esterase Airway Mallampati Class: II TM Dist: >3cm Neck ROM: Limited Assessment and Plan Assessment Anesthesia Assessment: Anesthesia Plan Discussed and Smoking Cess. Discussed Final Anesthetic Review Family History of Problems with Anesthesia: No History of Problems with Anesthesia: No NPO: Yes ASA Class: III and Emergency Final Preanesthetic Review: No Changes in Pt Med Stat, Meds/Allgs Chart Reviewed, Consent Obtained/Reviewed and Anes Risks/Benef Reviewed Patient Risk: Intermediate Procedure Risk: Low Anesthetic Plan Anesthetic Plan: GA Disposition: Standard PACU
[2023-10-19 13:15] LABS: Glucose, Whole Blood 156 mg/dL (60-115)
--- NOTE | 2023-10-19 13:56 | PC.NURSE ---
1345 report given to Kwasi rocha. dr. maldonado at bedside. awaiting anesthesia consent. notified dr. Mejia notified pt ready for consent at 1335. will be coming. 1400 pt consented by anesthesia. 1402 pt to OR.
--- NOTE | 2023-10-19 15:15 | PM.EVENT ---
Event Note Date of Service: 10/19/23 Event Note: ERCP multiple stones extracted after sphincterotomy. erosive gastritis. rec: advance diet begin ppi Time Spent With Patient Time: Total time managing care of this patient today ____ minutes.
--- NOTE | 2023-10-19 15:16 | P.BOP_ITS ---
Brief Operative Note Date of Service: 10/19/23 Pre-op diagnosis: CBD stones Post-op diagnosis: same Procedure: ERCP Surgeon: Theodore Wyatt MD Anesthesia: GETA Was an Full Stack Python Developer used for this Procedure?: No Estimated blood loss (mL): 2 Pathology: other Condition: stable Disposition: PACU
[2023-10-19 17:07] LABS: Glucose, Whole Blood 164 mg/dL (60-115)
[2023-10-19] MEDS: Insulin Lispro 100 UNIT/ML 3 ML VIAL SUBCUT ×2 (17:54→21:15)
[2023-10-19 20:54] LABS: Glucose, Whole Blood 232 mg/dL (60-115)
[2023-10-19] MEDS: 0.9 % Sodium Chloride Flush 3 ML SYRINGE IVFLUSH (21:16)
[2023-10-20 03:01] VITALS: BP 161/80; PULSE 83; RESP 16; TEMP 36.8; O2SAT 95
[2023-10-20] MEDS: 0.9 % Sodium Chloride 1,000 ML 100 ML IVCONT ×2 (03:01→12:40)
--- NOTE | 2023-10-20 03:14 | CONS_ITS ---
DATE OF SERVICE: 10/19/2023 REASON FOR CONSULTATION: Choledocholithiasis. HISTORY OF PRESENT ILLNESS: The patient is an 83-year-old female who came to the ER for some weakness and lightheadedness. During her workup, she was found to have a slightly elevated lipase level and a CT scan was obtained. This revealed no sign of pancreatitis, but did reveal evidence of some choledocholithiasis. There was no sign of any other acute intraabdominal pathology. In discussing things with the patient, she has not had any GI symptoms whatsoever. She typically enjoys a good appetite without any significant heartburn or dysphagia. She has not noticed any signs of jaundice. She denies any abdominal pain, weight loss, change in bowel habits, hematochezia, nor melena. The CT scan describes a possible cholecystectomy, but it is not entirely clear about that, and the patient cannot definitively recall as to whether or not she has had a cholecystectomy. Since admission to the hospital, she has continued to remain without any GI symptoms. She has been kept n.p.o. for possible ERCP, but is hungry and would like to eat if possible. MEDICATIONS AT HOME: Included Tums, vitamin D, folic acid, levothyroxine, lisinopril, metformin, rosuvastatin, and Ambien. CURRENT MEDICATIONS: Here in the hospital include Augmentin, atorvastatin, Tessalon, calcium carbonate, vitamin D, Colace, fluticasone nasal spray, folic acid, levothyroxine, lisinopril, omeprazole, and Zofran. PAST MEDICAL HISTORY: She has a permanent left-sided colostomy in relation to what sounds like a rectal cancer and AP resection at least 10 years ago. She has also had a hysterectomy, hernia surgery, and possible cholecystectomy. She does have history of aortic stenosis, hypertension, hyperlipidemia, diabetes mellitus, hypothyroidism, back surgery. SOCIAL HISTORY: She does not smoke nor use any significant amounts of alcohol. FAMILY HISTORY: Noncontributory. REVIEW OF SYSTEMS: CONSTITUTIONAL: She has been having some weakness and trouble with her balance. CARDIAC: No chest pain. PULMONARY: No coughing nor hemoptysis. GI: As above. URINARY: No dysuria, no hematuria. PHYSICAL EXAMINATION: GENERAL: The patient is alert, comfortable appearing female, in no distress. She has been afebrile. HEENT: She is nonjaundiced. Anicteric sclerae. CHEST: Clear. CARDIAC: Normal S1, S2 with a systolic murmur. ABDOMEN: Soft, nondistended, normal bowel sounds, and nontender. EXTREMITIES: Had edema. LABORATORY DATA: CT scan as above with evidence of choledocholithiasis. She has had a completely normal LFTs, normal CBC, and one slight elevation of her lipase at the time of admission with a level of 277. Lipase this morning was 32. IMPRESSION: The patient is an 83-year-old female presenting with what appears to be asymptomatic choledocholithiasis found incidentally on her CT scan, which she presented for some trouble with her balance and weakness, as well as a slightly elevated lipase level. At this point, I advised her, and her sister and [id number], and Mrs. Motley, that I would recommend an ERCP today so as to remove the common duct stones and avoid risks of cholangitis, sepsis, and pancreatitis in the future. While she is currently asymptomatic and feels well, I advised them that this would be the best time to do the procedure as opposed to waiting for an emergency in relation to cholangitis and sepsis. We did review the procedure in detail including potential risks of bleeding, perforation, cholangitis, and pancreatitis. I advised them that the procedure would be done under general anesthesia by Dr. Wyatt later today. At this point, they have given their consent for the procedure. The patient and her family are both comfortable with this plan. Thank you for the consultation. MD MARIAJOSE Salazar/SUNNY / [phone]
[2023-10-20] MEDS: Levothyroxine Sodium 125 MCG TABLET PO (05:23)
[2023-10-20] MEDS: Omeprazole 20 MG CAPSULE.DR PO (05:23)
[2023-10-20 06:19] LABS: Alanine Aminotransferase 10 U/L (0-31); Albumin Level 3.3 g/dL (3.5-5.0); Alkaline Phosphatase 74 U/L (39-117); Aspartate Amino Transferase 16 U/L (5-31); Bilirubin Direct 0.3 mg/dL (0.0-0.5); Bilirubin Total 0.6 mg/dL (0.0-1.0); Total Protein 6.1 g/dL (6.5-8.0)
[2023-10-20 06:21] LABS: Hemoglobin 12.6 g/dl (12.0-16.0); Mean Corpuscular HGB Conc 32.3 g/dl (31.0-35.0); Mean Corpuscular Volume 89.9 fL (80.0-98.0); Mean Platelet Volume 10.7 fL (9.4-12.3); Platelet Count 222 X10*3/uL (160-400); Red Blood Count 4.34 X10*6/uL (4.20-5.50); Red Cell Distribution Width 13.9 % (11.0-16.0); White Blood Count 7.8 X10*3/uL (4.8-10.8)
[2023-10-20 07:25] LABS: Glucose, Whole Blood 162 mg/dL (60-115)
[2023-10-20 07:33] VITALS: BP 160/71; PULSE 74; RESP 18; TEMP 36.7; O2SAT 94
[2023-10-20] MEDS: Insulin Lispro 100 UNIT/ML 3 ML VIAL SUBCUT ×3 (07:40→16:53)
--- NOTE | 2023-10-20 09:15 | P.PNIM_ITS ---
Subjective Subjective Date of Service: 10/20/23 Interval History: no complaints Physical Exam 2 Vital Signs: Vital Signs: Last Vital Signs Temp 98.0 F 10/20/23 07:33 Pulse 74 10/20/23 07:33 Resp 18 10/20/23 07:33 BP 160/71 H 10/20/23 07:33 Pulse Ox 94 10/20/23 07:33 O2 Del Method Room Air 10/20/23 07:33 O2 Flow Rate 2 10/19/23 16:15 BMI result Body Mass Index 31.8 General: AO X 3, no acute distress Resp: CTA bilateral, no accessory muscles used CVS: S1,S2,RRR GI: soft, non tender, non distended Neuro: motor grossly intact, alert Psych: appropriate affect, appropriate insight Objective Data Active Medications Acetaminophen (Acetaminophen 325 Mg Tablet) 650 mg PO Q6H PRN PRN Reason: Pain, Mild (Pain Scale 1-3) Atorvastatin Calcium (Atorvastatin Calcium 40 Mg Tablet) 40 mg PO DAILY [facility] Last Admin: 10/19/23 08:55 Dose: 40 mg Documented By: FABRICE Benzonatate (Benzonatate 100 Mg Capsule) 100 mg PO TID PRN PRN Reason: Cough Calcium Carbonate (Calcium Carbonate 500 Mg Tablet) 500 mg PO DAILY [facility] Last Admin: 10/19/23 08:55 Dose: 500 mg Documented By: FABRICE Docusate Sodium (Docusate Sodium 100 Mg Capsule) 100 mg PO DAILY PRN PRN Reason: Constipation Fluticasone Propionate (Fluticasone Propionate Nasal 16 Gm [place]) 2 spray NOSTRIL-B DAILY PRN PRN Reason: Congestion Folic Acid (Folic Acid 1 Mg Tablet) 1 mg PO DAILY [facility] Last Admin: 10/19/23 08:55 Dose: 1 mg Documented By: FABRICE Glucose (Glucose Gel 15 Gm Gel..Gram.) 15 gm PO Q15M PRN; Protocol PRN Reason: per Hypoglycemia Standing Ord. Sodium Chloride (Ns) 1,000 mls @ 100 mls/hr IVCONT .Q10H [facility] Last Admin: 10/20/23 03:01 Dose: 100 mls/hr Documented By: ODRISM Dextrose (D10) 250 mls @ 750 mls/hr IV Q15M PRN; Protocol PRN Reason: per Hypoglycemia Standing Ord. Insulin Human Lispro (Insulin Lispro 100 Unit/Ml 3 Ml Vial) 0 unit SUBCUT QIDACHS [facility]; Protocol Last Admin: 10/20/23 07:40 Dose: 2 unit Documented By: MAURIZIO Levothyroxine Sodium (Levothyroxine Sodium 125 Mcg Tablet) 125 mcg PO DAILY@0600 [facility] Last Admin: 10/20/23 05:23 Dose: 125 mcg Documented By: FAIZAN Lisinopril (Lisinopril 5 Mg Tablet) 5 mg PO DAILY [facility]; Protocol Last Admin: 10/19/23 08:55 Dose: 5 mg Documented By: FABRICE Magnesium Oxide (Magnesium Oxide 400 Mg Tablet) 200 mg PO DAILY [facility] Last Admin: 10/19/23 08:55 Dose: 200 mg Documented By: FABRICE Omeprazole (Omeprazole 20 Mg Capsule.Dr) 20 mg PO DAILY@0630 [facility] Last Admin: 10/20/23 05:23 Dose: 20 mg Documented By: FAIZAN Ondansetron HCl (Ondansetron Hcl 4 Mg/2 Ml Vial) 4 mg IVPUSH Q8H PRN PRN Reason: Nausea and Vomiting Sodium Chloride (0.9 % Sodium Chloride Flush 3 Ml Syringe) 3 ml IVFLUSH QSHIFT [facility] Last Admin: 10/20/23 07:26 Dose: Not Given Documented By: PEPPER Non-Admin Reason: IV Running Vitamin D (Cholecalciferol (Vitamin D3) 25 Mcg Tablet) 50 mcg PO DAILY [facility] Last Admin: 10/19/23 08:55 Dose: 50 mcg Documented By: FABRICE Labs 10/20/23 05:22 10/19/23 09:14 Labs: Laboratory Results - last 24 hr 10/19/23 10/19/23 10/19/23 09:14 11:12 13:11 MCV MCH MCHC RDW Plt Count MPV Absolute Nucleated RBC Nucleated RBC % (auto) Anion Gap 14 Estim Creat Clear Calc 60.9 Estimated GFR > 60 POC Glucose 135 H 156 H Random Glucose 128 H Lactic Acid 1.7 Calcium 9.4 Total Bilirubin Direct Bilirubin AST ALT Alkaline Phosphatase Total Protein Albumin Lipase 32 10/19/23 10/19/23 10/20/23 17:04 20:50 05:22 MCV 89.9 MCH 29.0 MCHC 32.3 RDW 13.9 Plt Count 222 MPV 10.7 Absolute Nucleated RBC 0.000 Nucleated RBC % (auto) 0.0 Anion Gap Estim Creat Clear Calc Estimated GFR POC Glucose 164 H 232 H Random Glucose Lactic Acid Calcium Total Bilirubin 0.6 Direct Bilirubin 0.3 AST 16 ALT 10 Alkaline Phosphatase 74 Total Protein 6.1 L Albumin 3.3 L Lipase 10/20/23 07:20 MCV MCH MCHC RDW Plt Count MPV Absolute Nucleated RBC Nucleated RBC % (auto) Anion Gap Estim Creat Clear Calc Estimated GFR POC Glucose 162 H Random Glucose Lactic Acid Calcium Total Bilirubin Direct Bilirubin AST ALT Alkaline Phosphatase Total Protein Albumin Lipase Microbiology Microbiology Results: Microbiology 10/18/23 20:49 Blood Culture - Preliminary Blood - Venous No growth after 24 hours. 10/18/23 20:41 Blood Culture - Preliminary Blood - Venous No growth after 24 hours. Assessment and Plan (1) Choledocholithiasis: Status: Acute Plan 83F PMH , htn, hlod, dm, hypothyroid, history of colectomy s/p colostomy presented with fall, Found To have choledocholithiasis Acute choledocholithiasis s/p ercp 10/19/23 Orthostatic hypotension Received IV fluids, monitor Recent pneumonia diagnosed 10/15/2023 completed augmentin Frequent falls PT recommending str Diabetes Insulin sliding scale Hypertension Lisinopril Hyperlipidemia Statin Hypothyroid Synthroid DVT prophylaxis - lovenox full code Reason for continued hospitalization: safe dispo (STR) Quality Stroke Does the patient have a stroke diagnosis?: No VTE Prior VTE?: No VTE Risk Level:: Medical - moderate - high VTE Device Contraindication: N/A - Device Ordered VTE Drug Contraindication: Treatment Not Indicated
--- NOTE | 2023-10-20 09:54 | P.PNGI_ITS ---
Subjective Subjective Date of Service: 10/20/23 Interval History: feels well no abd pain eating well Critical Care Time (minutes): 0 Physical Exam 2 Vital Signs: Vital Signs: Last Vital Signs Temp 98.0 F 10/20/23 07:33 Pulse 74 10/20/23 07:33 Resp 18 10/20/23 07:33 BP 160/71 H 10/20/23 07:33 Pulse Ox 94 10/20/23 07:33 O2 Del Method Room Air 10/20/23 07:33 O2 Flow Rate 2 10/19/23 16:15 BMI result Body Mass Index 31.8 GI: Other: abdomen is soft and nontender Objective Data Labs 10/20/23 05:22 10/19/23 09:14 Microbiology Microbiology Results: Microbiology 10/18/23 20:49 Blood - Venous Blood Culture - Preliminary No growth after 24 hours. 10/18/23 20:41 Blood - Venous Blood Culture - Preliminary No growth after 24 hours. Procedures Date of Service Date of Service: 10/20/23 Progress Note: A&P Assessment and plan (1) Choledocholithiasis: Status: Acute Assessment and Plan: doing well s/p ercp and sphincterotomy with removal of cbd stones ppi for erosive gastritis hold lovenox due to recent sphincterotomy Time Spent With Patient Time: Total time managing care of this patient today ____ minutes. Quality Stroke Does the patient have a stroke diagnosis?: No VTE Prior VTE?: No VTE Risk Level:: Medical - moderate - high VTE Device Contraindication: N/A - Device Ordered VTE Drug Contraindication: Treatment Not Indicated
[2023-10-20 10:09] VITALS: BP 134/61; PULSE 76
[2023-10-20 10:19] VITALS: BP 134/61
[2023-10-20] MEDS: Cholecalciferol (Vitamin D3) 25 MCG TABLET 50 MCG PO (10:19)
[2023-10-20] MEDS: Atorvastatin Calcium 40 MG TABLET PO (10:19)
[2023-10-20] MEDS: lisinopriL 5 MG TABLET PO (10:19)
[2023-10-20] MEDS: Magnesium Oxide 400 MG TABLET 200 MG PO (10:20)
[2023-10-20] MEDS: Folic Acid 1 MG TABLET PO (10:20)
[2023-10-20 11:22] LABS: Glucose, Whole Blood 181 mg/dL (60-115)
--- NOTE | 2023-10-20 12:30 | HO.POSTANES ---
Post Anesthesia Evaluation Post Anesthesia Evaluation Date of Service: 10/19/23 Vital Signs: Vital Signs Temp Pulse Resp BP Pulse Ox O2 Del Method 10/20/23 10:19 134/61 10/20/23 10:09 76 134/61 10/20/23 07:33 98.0 F 74 18 160/71 H 94 Room Air 10/20/23 03:01 98.2 F 83 16 161/80 H 95 Room Air Anesthesia: General Endotracheal-GETA Mental Status: Awake Pain Control: Satisfactory Nausea/Vomiting: None Hydration: Adequate Anesthesia-Related Issues: No Anes. Related Issues
[2023-10-20 15:51] VITALS: BP 144/68; PULSE 90; RESP 17; TEMP 37.3; O2SAT 95
[2023-10-20 16:41] LABS: Glucose, Whole Blood 160 mg/dL (60-115)
[2023-10-20 19:34] LABS: Glucose, Whole Blood 147 mg/dL (60-115)
[2023-10-20 19:39] VITALS: BP 148/67; PULSE 82; RESP 18; TEMP 36.3; O2SAT 98
[2023-10-20] MEDS: 0.9 % Sodium Chloride Flush 3 ML SYRINGE IVFLUSH (22:11)
[2023-10-21 03:57] VITALS: BP 177/81; PULSE 89; RESP 18; TEMP 36.6; O2SAT 98
[2023-10-21] MEDS: Omeprazole 20 MG CAPSULE.DR PO (05:42)
[2023-10-21] MEDS: Levothyroxine Sodium 125 MCG TABLET PO (05:42)
[2023-10-21 07:20] VITALS: BP 170/74; PULSE 79; RESP 17; TEMP 36.6; O2SAT 94
[2023-10-21 07:38] LABS: Glucose, Whole Blood 124 mg/dL (60-115)
[2023-10-21 08:01] VITALS: BP 170/74
[2023-10-21] MEDS: Magnesium Oxide 400 MG TABLET 200 MG PO (08:01)
[2023-10-21] MEDS: lisinopriL 5 MG TABLET PO (08:01)
[2023-10-21] MEDS: Cholecalciferol (Vitamin D3) 25 MCG TABLET 50 MCG PO (08:01)
[2023-10-21] MEDS: Atorvastatin Calcium 40 MG TABLET PO (08:01)
[2023-10-21] MEDS: Folic Acid 1 MG TABLET PO (08:01)
[2023-10-21] MEDS: 0.9 % Sodium Chloride Flush 3 ML SYRINGE IVFLUSH (08:02)
--- NOTE | 2023-10-21 08:59 | PM.DS ---
DS: Providers Provider Date of Service: 10/21/23 Date of admission: 10/18/23 21:01 Primary care physician: Silvio Stephens PA-C Consults: 10/18/23 19:53 Consult to Gastroenterology Stat Consulting Provider: Lazarus Jimenez Reason for consultation: CBD stones, elevated lipase Has provider been notified: Yes DS: Diagnosis Discharge Diagnosis (1) Choledocholithiasis: Status: Acute DS: Summary Hospital Course Hospital Course: from initial hpi: 83-year-old female with a PMH significant for aortic stenosis HTN, HLD,?[id number] diabetes type 2, hypothyroidism, hx of colectomy with colostomy in place, and hx of recent falls who presents to the ED for evaluation of?weakness and recent falls at home. Patient initially presented to the ED 3 days prior on 10/14 and was seen for evaluation of dizziness and multiple falls at home this past week. Was treated for lower lobe pneumonia and placed on her physician observation but discharged home with VNA services as she did not meet inpatient criteria or could be placed to STR. Earlier today patient again was experiencing lightheadedness/dizziness and weakness with standing. [employer] was with her and had to lower her to the floor. Patient herself complains she has ?balance problems? and difficulty walking. The patient is a poor historian and is unable to state exactly when symptoms started or when she last fell. Denies nausea, vomiting, fever, chills. No abdominal pain. Denies chest pain/pressure, palpitations. No shortness of breath or difficulty breathing. Reports no changes to bowel or bladder habits. In the ED pt was tachycardic up to 133 and hypertensive up to 201/83. Orthostatics positive. Labs were significant for elevated lipase of 277, otherwise grossly unremarkable. No leukocytosis. No significant electrolyte abnormalities. Renal function around baseline. Hepatic function baseline. UA negative for UTI. CXR showed improved left lower lobe aeration with no new consolidation and no pleural effusion. CT?of abd/pelvis found choledocholithiasis with CBD dilated up to 1.3 cm and intrahepatic ducts mildly dilated. Pancreas mildly atrophied, but no evidence of acute pancreatitis. EKG demonstrated sinus rhythm with premature supraventricular complexes but no evidence of significant ST elevations or depressions. Pt was treated with 2 L IVF and cefepime. Pt will be admitted to the hospital for treatment and further evaluation of choledocholithiasis with likely ERCP tomorrow. hospital course: Patient was admitted for acute choledocholithiasis. She underwent ERCP with sphincterotomy, also revealed erosive gastritis and was started on PPI. Patient tolerated procedure well and is tolerating solid diet. For orthostatic hypotension she received IV fluids and this improved. For recent pneumonia she completed her Augmentin course. For frequent falls was seen by PT who recommended short-term rehab at residential facility to which she will be discharged. For diabetes was continue insulin sliding scale. For hypertension was continued on lisinopril. For hyperlipidemia was continue statin. For hypothyroidism was continued on Synthroid. Time Attestation Discharge Coordination Time (in mins): 35 Quality: Safe Use of Opioids Does Pt have an Active Cancer Diagnosis on the Problem List?: No Quality: Stroke Does the patient have a stroke diagnosis?: No Physical Exam Vital Signs: Vital Signs: Last Vital Signs Temp 97.8 F 10/21/23 07:20 Pulse 79 10/21/23 07:20 Resp 17 10/21/23 07:20 BP 170/74 H 10/21/23 08:01 Pulse Ox 94 10/21/23 07:20 O2 Del Method Room Air 10/21/23 07:20 O2 Flow Rate 2 10/19/23 16:15 BMI result Body Mass Index 31.8 GI: Other: abdomen is soft and nontender DS: Data Data Completed and Pending Pending studies at discharge: Pending at discharge 10/19/23 15:12 Surgical [PTH] Routine Labs on day of discharge: Laboratory Results - last 24 hr 10/20/23 10/20/23 10/20/23 10:58 16:37 19:25 POC Glucose 181 H 160 H 147 H 10/21/23 07:24 POC Glucose 124 H Preliminary micro results at discharge 10/18/23 20:49 Blood Culture - Preliminary Blood - Venous No growth after 48 hours. 10/18/23 20:41 Blood Culture - Preliminary Blood - Venous No growth after 48 hours. Discharge Plan Discharge Anticipated Discharge Date/Time: 10/21/23 08:57 Patient Disposition: Xfer SNF Discharge Diagnosis: choledocolithiasis Referrals: Silvio Stephens PA-C [Primary Care Provider] - 1 Week Lazarus Jimenez MD [Physician] - 1 Week Discharge Medications: New omeprazole 20 mg Capsule,Delayed Release(Dr/Ec) 20 mg PO DAILY@0630 Qty: 0 0RF Continued (DME) CPAP Machine/Device Device See Rx Instructions .Route Qty: 1 0RF Rx Instructions: As directed-Auto setting 8-20, heated tube and humidification folic acid 1 mg tablet 1 mg PO DAILY Qty: 90 3RF lisinopril 5 mg tablet 5 mg PO DAILY Qty: 90 3RF metformin 500 mg tablet 500 mg PO DAILY Qty: 90 3RF levothyroxine 125 mcg tablet 125 mcg PO DAILY rosuvastatin 10 mg tablet 10 mg PO DAILY calcium carbonate 500 mg calcium (1,250 mg) Tablet 500 mg PO DAILY fluticasone propionate 50 mcg/actuation spray,suspension 2 spray intranasal DAILY PRN (Reason: Congestion) magnesium oxide 250 mg magnesium tablet 250 mg PO DAILY cholecalciferol (vitamin D3) 50 mcg (2,000 unit) capsule 50 mcg PO DAILY Qty: 90 1RF zolpidem [Ambien] 10 mg tablet 10 mg PO BEDTIME 30 Days Qty: 30 2RF (DME) lancets Misc See Rx Instructions .Route Qty: 100 3RF Rx Instructions: Test blood sugar once a day (DME) OneTouch Ultra Test Strip See Rx Instructions .Route Qty: 100 3RF Rx Instructions: test blood sugar once a day (DME) blood-glucose meter [OneTouch Ultra2 Meter] Misc See Rx Instructions .Route Qty: 1 0RF Rx Instructions: As directed Discontinued amoxicillin-pot clavulanate 875-125 mg tablet 1 tab PO BID 10 Days Qty: 20 0RF Discharge Orders: Discharge Order (Routine); Ordered 10/21/23 Ordered By: Jesse Hyatt Diet: Advance to usual diet Activity on Discharge: As tolerated Stand Alone Forms: Patient Portal Discharge page Print Language: Japanese Care Plan Goals: recovery Health Concerns: weakness Plan of Treatment: rehab Assessment: see above
--- NOTE | 2023-10-21 10:58 | MHC.CM.PN ---
DP: PT HAS BEEN MEDICALLY CLEARED FOR DC TO STR. PT HAS CHOSEN [facility] CHOICE. PT REQUESTS HCP BE NOTIFIED, CALL PLACED TO BROTHER IOANA WHO IS AWARE OF THE PLAN. RN AWARE. BLS TRANSPORT BOOKED FOR 3 PM (PER REQUEST OF CENTER) [facility]IA [facility].
[2023-10-21 11:30] LABS: Glucose, Whole Blood 210 mg/dL (60-115)
[2023-10-21] MEDS: Insulin Lispro 100 UNIT/ML 3 ML VIAL SUBCUT (11:46)
--- NOTE | 2023-10-21 11:46 | P.PNGI_ITS ---
Subjective Subjective Date of Service: 10/21/23 Interval History: feels well no ruq pain tolerating diet Critical Care Time (minutes): 0 Physical Exam 2 Vital Signs: Vital Signs: Last Vital Signs Temp 97.8 F 10/21/23 07:20 Pulse 79 10/21/23 07:20 Resp 17 10/21/23 07:20 BP 170/74 H 10/21/23 08:01 Pulse Ox 94 10/21/23 07:20 O2 Del Method Room Air 10/21/23 07:20 O2 Flow Rate 2 10/19/23 16:15 BMI result Body Mass Index 31.8 GI: Other: abdomen is soft and nontender Objective Data Labs 10/20/23 05:22 10/19/23 09:14 Labs: Laboratory Results - last 24 hr 10/20/23 10/20/23 10/21/23 16:37 19:25 07:24 POC Glucose 160 H 147 H 124 H 10/21/23 11:23 POC Glucose 210 H Microbiology Microbiology Results: Microbiology 10/18/23 20:49 Blood - Venous Blood Culture - Preliminary No growth after 48 hours. 10/18/23 20:41 Blood - Venous Blood Culture - Preliminary No growth after 48 hours. Procedures Date of Service Date of Service: 10/21/23 Progress Note: A&P Assessment and plan (1) Choledocholithiasis: Status: Acute Assessment and Plan: doing well post ercp discharge planned for later today followup prn Time Spent With Patient Time: Total time managing care of this patient today ____ minutes. Quality Stroke Does the patient have a stroke diagnosis?: No VTE Prior VTE?: No VTE Risk Level:: Medical - moderate - high VTE Device Contraindication: N/A - Device Ordered VTE Drug Contraindication: Treatment Not Indicated
--- NOTE | 2023-10-22 12:09 | OP_ITS ---
DATE OF SERVICE: 10/19/2023 SURGEON: Theodore Wyatt MD INDICATIONS: Common bile duct stones. PREOPERATIVE DIAGNOSIS: POSTOPERATIVE DIAGNOSIS: PROCEDURE PERFORMED: Endoscopic retrograde cholangiopancreatography with sphincterotomy, stone extraction, and biopsy. ESTIMATED BLOOD LOSS: COMPLICATIONS: ANESTHESIA: Medications; general anesthesia. ASSISTANTS: SPECIMENS: DESCRIPTION OF PROCEDURE: History and physical performed. The risks and benefits of the procedure were explained to the patient. Informed consent was obtained. The patient was placed in the prone position with a wedge under the right shoulder. The Olympus therapeutic duodenoscope was introduced into the esophagus, stomach, and duodenum. Examination was performed. The scope was removed. She tolerated the procedure well and was returned to recovery room in stable condition. FINDINGS: Endoscopy: Limited examination of the esophagus, stomach, and duodenum was remarkable for erosive gastritis. Antral biopsies were obtained. The major papilla appeared normal with no evidence of malignancy. Cholangiography was obtained after the common bile duct was accessed with a sphincterotome past over a guidewire. Cholangiography showed multiple filling defects consistent with stones. A sphincterotomy was performed approximately 10 mm with no immediate complications. Multiple common bile duct stones were then removed using a 12-15 mm balloon extraction catheter. No filling defects were identified at the termination of the procedure. There was excellent drainage of clear yellow bile after the stones were extracted. No pancreatogram was attempted or obtained. IMPRESSION: 1. Common bile duct stones. 2. Erosive gastritis. RECOMMENDATIONS: 1. Follow up the biopsy results. 2. Advance diet. 3. Begin proton pump inhibitor. MD BRIAN Ahmadi/STELLAL / [id number]
== END 2023-10-21 15:17 | disposition skilled nursing facility (03) | DRG 445 ==
LOC: HO.ED 17:59 → HO.EDOVER 21:15 → HO.S3 10-19 07:37
PROVIDERS: Internal Medicine Gastroenterology; Admitting Provider Student in an Organized Health Care Education/Training Program; Emergency Provider Emergency Medicine; PCP Physician Assistant; Visit Provider Internal Medicine
PROC: 0FC98ZZ Extirpation of Matter from Common Bile Duct, Via Natural or Artificial Opening Endoscopic (ICD-10-PCS; CPT 43260; principal; 2023-10-19 13:30)
DX: K80.50 Calculus of bile duct without cholangitis or cholecystitis without obstruction (principal); E87.21 Acute metabolic acidosis; I95.1 Orthostatic hypotension; K29.60 Other gastritis without bleeding; R29.6 Repeated falls; E78.5 Hyperlipidemia, unspecified; E03.9 Hypothyroidism, unspecified; Z93.3 Colostomy status; Z87.01 Personal history of pneumonia (recurrent); Z79.84 Long term (current) use of oral hypoglycemic drugs; Z79.899 Other long term (current) drug therapy
CPT/HCPCS: 36415; 70450; 71045; 71046; 72125; 74177; 80048; 80076; 81001; 81003; 82550; 82803; 82947; 83605; 83690; 83735; 83880; 84145; 84443; 84484; 85025; 85027; 85610; 87040; 87635; 88305; 88313; 88342; 93005; 97162; 99285; C1769; J0330; J0692; J1100; J1610; J1956; J2405; J2704; J3010; Q9967

== ENCOUNTER → 2023-10-18 12:06 | Outpatient (BNV) | payer MEDICARE, SELFPAY | PROVIDERS: Emergency Provider Emergency Medicine; PCP Physician Assistant; Visit Provider Internal Medicine Cardiovascular Disease | DX: I49.1 Atrial premature depolarization (principal) | CPT/HCPCS: 93010 ==

== ENCOUNTER → 2023-10-18 21:01 | Outpatient (BNV) | payer MEDICARE, SELFPAY | PROVIDERS: Admitting Provider Student in an Organized Health Care Education/Training Program; Emergency Provider Emergency Medicine; PCP Physician Assistant; Visit Provider Internal Medicine | DX: K80.50 Calculus of bile duct without cholangitis or cholecystitis without obstruction (principal) | CPT/HCPCS: 99223; 99232; 99233; 99239 ==

== ENCOUNTER 2023-11-21 09:20 | Outpatient (AMB) | payer MEDICARE, SELFPAY ==
[2023-11-21 10:16] VITALS: BP 140/80; PULSE 89; TEMP 36.1; O2SAT 97
--- NOTE | 2023-11-21 10:16 | AM.OFFWIN_ITS ---
Intake Vital Signs 11/21/23 10:16 Weight 177 lb BP 140/80 H Blood Pressure Location Lt brachial Position Sitting Pulse 89 Pulse Source Pulse Oximeter Temp 97.0 F Temp Source Temporal Artery Scan Pulse Oximetry (%) 97 Oxygen Delivery Method Room Air Intake Visit Reasons: EST/ back pain (lobby) Intake Note: pt is here today for 1 week ago Patient Tobacco Use Status: Never used Tobacco Allergies No Known Allergies Allergy (Mild, Verified 11/21/23 10:26) NKA Do you need a note to return to daycare/school/sports/work: No HPI HPI Comments History of Present Illness Details 83 y/o female patient who presents to [facility] in clinic with c/o lower back pain and lower abdominal cramping. Pt has h/o Cholelithiasis S/P ERCP 10/25/23. S/p Colectomy due to CA with Colostomy bag in place. Denies diarrhea, constipation, bloating, fevers or chills. PFSH Medical History Aortic stenosis Heart murmur CKD (chronic kidney disease) stage 3, GFR 30-59 ml/min Vitamin D deficiency Vitamin B 12 deficiency Poor balance Hypothyroidism HTN (hypertension) DM type 2 (diabetes mellitus, type 2) Surgical History S/P repair of inguinal hernia Hx of decompressive lumbar laminectomy H/O: hysterectomy S/P colon resection Family History Father Prostate cancer Mother Hypertension Social History Household Members: None Household Members Other:: lives alone, does not drive, no children Housing: Apartment Housing [facility]:: [facility] Do you presently have visiting nurse or other home services: No Alcohol intake: never Patient Tobacco Use Status: Never used Tobacco e-Cigarette/Vaping Use: Never Used Second Hand Smoke Exposure: No Advance Directives Date on File: 10/19/23 service: No Current occupational status: retired Cognitive needs: Yes (walker ) Hearing needs: No Vision needs: Yes (glasses) Review of Systems Const All systems reviewed & are unremarkable except as noted in HPI and below Physical Exam Vital Signs: Last Vital Signs Temp 97.0 F 11/21/23 10:16 Pulse 89 11/21/23 10:16 BP 140/80 H 11/21/23 10:16 Pulse Ox 97 11/21/23 10:16 Oxygen Delivery Method Room Air 11/21/23 10:16 Const Orientation/consciousness: patient oriented x3 Resp Effort & Inspection: normal respiratory effort Cardio Rate: regular rate Rhythm: regular rhythm GI Inspection: Yes other (colostomy bag present) Palpation (GI): Soft to palpation and Tenderness to palpation present (GI) suprapubicly Auscultation: normal bowel sounds Neuro General: patient oriented x3, gait normal (Walk with Walker) and moves all extremities Psych Speech and movement: Normal speech and movement present Assessment & Plan Assessment & Plan (1) Low back pain: Code(s): M54.50 - Low back pain, unspecified Qualifiers: Back pain laterality: midline Chronicity: acute Sciatica presence: without sciatica Qualified Code(s): M54.50 - Low back pain, unspecified Plan: - Pt unable to provide Urine sample for U/A - Acetaminophen for pain relief - IceHot (2) Abdominal pain: Code(s): R10.9 - Unspecified abdominal pain Qualifiers: Abdominal location: lower abdomen, unspecified Qualified Code(s): R10.30 - Lower abdominal pain, unspecified Plan: - Advised to call her GI doctor for an appointment - DDx's: Cholecystitis vs Cholelithiasis vs Diverticulitis - Also Advised ED for further evaluation and management. Orders: Orders UA CC w/rflx Micro + Cult Today M54.50 - Low back pain, unspecified, R10.30 - Lower abdominal pain, unspecified Coding Level of Care Code Est Pt Level 3 (79749) Diagnoses Acute midline low back pain without sciatica M54.50 Back pain laterality: midline Chronicity: acute Sciatica presence: without sciatica Lower abdominal pain R10.30 Abdominal location: lower abdomen, unspecified Time Spent (min) 15
== END 2023-11-21 11:48 | disposition home or self-care (01) ==
PROVIDERS: PCP Physician Assistant; Visit Provider Nurse Practitioner Family
DX: M54.50 Low back pain, unspecified (principal); R10.30 Lower abdominal pain, unspecified
CPT/HCPCS: 99213

== ENCOUNTER 2023-11-22 12:38 | Outpatient (REF) | payer MEDICARE, SELFPAY ==
[2023-11-22 17:00] LABS: Appearance Urine Clear; Color Urine Yellow; Glucose Urine UA Negative (Negative); Leukocyte Esterase Urine Negative (Negative); Nitrite Urine Negative (Negative); Specific Gravity - Urine <= 1.005 (1.005-1.025); Urine Blood Negative (Negative); Urine Ketones Negative (Negative); Urine Protein Negative (Neg-Trace)
== END 2023-11-22 12:39 | disposition home or self-care (01) ==
LOC: HO.HMGCLDS 12:38
PROVIDERS: Visit Provider Nurse Practitioner Family
DX: M54.50 Low back pain, unspecified (principal); R10.30 Lower abdominal pain, unspecified
CPT/HCPCS: 81003

== ENCOUNTER → 2023-11-26 23:59 | Outpatient (BNV) | payer MEDICARE, SELFPAY | PROVIDERS: PCP Physician Assistant; Visit Provider Physician Assistant | DX: I12.9 Hypertensive chronic kidney disease with stage 1 through stage 4 chronic kidney disease, or unspecified chronic kidney disease (principal); E11.22 Type 2 diabetes mellitus with diabetic chronic kidney disease; N18.30 Chronic kidney disease, stage 3 unspecified; E11.40 Type 2 diabetes mellitus with diabetic neuropathy, unspecified; I95.1 Orthostatic hypotension | CPT/HCPCS: G0180 ==

== ENCOUNTER 2023-12-03 13:44 | Outpatient (AMB) | payer MEDICARE, SELFPAY ==
--- NOTE | 2023-12-03 13:52 | MHC.PC.OV ---
Vital Signs 12/03/23 13:53 Height 5 ft 4 in Weight 176 lb 2.389 oz BMI 30.2 BP 152/78 H Blood Pressure Location Lt brachial Position Sitting Pulse 82 Pulse Source Pulse Oximeter Pulse Oximetry (%) 97 Oxygen Delivery Method Room Air Intake Visit Reasons: f/u lower extremity weakness and balance issue Accompanied by: Spouse Allergies No Known Allergies Allergy (Mild, Verified 12/03/23 14:07) NKA Medication List - Last Reconciled 12/03/23 by Silvio Stephens PA-C blood-glucose meter (GT SolarTouch Ultra2 Meter) As directed calcium carbonate 500 mg PO DAILY cholecalciferol (vitamin D3) 50 mcg PO DAILY CPAP (CPAP Machine/Device) As directed-Auto setting 8-20, heated tube and humidification fluticasone propionate 50 mcg/actuation 2 sprays intranasal DAILY PRN folic acid 1 mg PO DAILY lancets Test blood sugar once a day levothyroxine 125 mcg PO DAILY lisinopril 5 mg PO DAILY magnesium oxide 250 mg PO DAILY metformin 500 mg PO DAILY omeprazole 20 mg PO DAILY@0630 OneTouch Ultra Test (blood sugar diagnostic) test blood sugar once a day NS rosuvastatin 10 mg PO DAILY zolpidem (Ambien) 10 mg PO BEDTIME 30 days Tobacco use date assessed: 07/04/23 Fall risk assessment: No Falls in past year Last assessed Fall Risk: 12/03/23 Dental Screening Dental Screen Date: 10/03/23 HPI f/u lower extremity weakness and balance issue HPI Details Patient is an 83-year-old female here today for a follow-up visit. This is my 2ndttime meeting this 83-year-old female past medical history significant for type 2 diabetes mellitus, hypertension, hypothyroidism, vitamin B12 deficiency, CKD, hyperlipidemia, moderate aortic stenosis, history of rectal cancer and status post permanent colostomy. . Patient was recently admitted to [facility] in 10/13/2023 for abdominal pain and was found to have choledocholithiasis. She underwent an ERCP with sphincterotomy which also revealed erosive esophagitis and was started on a PPI. She was also in short-term group home facility for her lower extremity weakness and inability to ambulate well/frequent falls. Today She reports she still feels pain in her hips and pelvis in some lower extremity weakness. Still is able to ambulate with walker assistance. She also reports she feels that she continues to have a cold often feeling fatigued ect.. Did does seem she was given antibiotics while she was hospitalized in 10/13/2023 [facility] Medical History Aortic stenosis Heart murmur CKD (chronic kidney disease) stage 3, GFR 30-59 ml/min Vitamin D deficiency Vitamin B 12 deficiency Poor balance Hypothyroidism HTN (hypertension) DM type 2 (diabetes mellitus, type 2) Surgical History S/P repair of inguinal hernia Hx of decompressive lumbar laminectomy H/O: hysterectomy S/P colon resection Family History Father Prostate cancer Mother Hypertension Social History Household Members: None Household Members Other:: lives alone, does not drive, no children Housing: Apartment Housing Other:: [facility] Do you presently have visiting nurse or other home services: No Alcohol intake: never Patient Tobacco Use Status: Never used Tobacco e-Cigarette/Vaping Use: Never Used Second Hand Smoke Exposure: No Advance Directives Date on File: 10/19/23 service: No Current occupational status: retired Cognitive needs: Yes (walker ) Hearing needs: No Vision needs: Yes (glasses) Questionnaire Thrive Questionnaire Date Thrive assessed: 10/19/23 MUMTAZ-7 AMB Questionnaire MUMTAZ-7 Date MUMTAZ - 7 assessed: 07/04/23 Source: Developed by Drs. Lazarus Mathis, Jaqueline Leavitt, Finn Delgado and colleagues, with an educational atif from [employer]. Review of Systems Const Reports fatigue and Reports headache(s) Eyes Denies loss of vision ENT Denies vertigo, Denies dizziness, Reports headache(s) and Denies sore throat Card Denies chest pain, Denies leg edema and Denies lightheadedness Resp Denies cough, Denies hemoptysis and Denies wheezing GI Denies abdominal pain, Denies melena, Denies constipation, Denies diarrhea and Denies vomiting Denies urinary frequency, Denies dysuria and Denies urinary urgency Musc Details: + bilateral hip pain Bilateral lower extremity weakness Reports arthralgias, Denies joint swelling, Reports muscle weakness, Denies numbness and Denies tingling Neuro Denies Abnormal speech present, Denies behavioral changes, Denies vertigo, Denies dizziness, Reports headache(s), Denies loss of vision, Denies memory loss, Denies numbness and Denies tingling Psych Denies anxiety, Denies behavioral changes, Denies depression, Denies memory loss and Denies panic attacks Endo Reports fatigue Eulogio/Lymph Denies easy bleeding and Denies easy bruising Aller/Immun Denies wheezing Physical exam (Primary Care) Vital Signs: Last Vital Signs Pulse 82 12/03/23 13:53 BP 152/78 H 12/03/23 13:53 Pulse Ox 97 12/03/23 13:53 Oxygen Delivery Method Room Air 12/03/23 13:53 BMI result Body Mass Index 30.2 Tobacco/Smoking Status: Tobacco use Status Tobacco use date assessed 07/04/23 12/03/23 14:00 Patient Tobacco Use Status Never used Tobacco 12/03/23 14:00 e-Cigarette/Vaping Use Never Used 12/03/23 14:00 Thrive Assessment: Date of Thrive Assessment Date Thrive assessed 10/19/23 12/03/23 14:00 Const General: healthy appearing, no acute distress, alert and awake Nutritional Appearance: well nourished Orientation/consciousness: oriented to person, oriented to place and oriented to time HENMT Ears: TM's normal bilaterally General nose exam: Normal nasal mucous membranes and turbinates present Eyes Conjunctivae: conjunctivae normal Sclerae: sclerae normal Pupils: Equal, round and reactive pupils present Neck Neck: Yes no lymphadenopathy and Yes no JVD Thyroid: Thyroid normal Carotids: no bruits Resp Effort & Inspection: normal respiratory effort and not tachypneic Auscultation: no crackles, no rales, no rhonchi and no wheezes Cardio Rate: regular rate Rhythm: regular rhythm Heart sounds: no murmurs and normal S1 and S2 GI Palpation (GI): Soft to palpation, nontender, no hepatomegaly and no splenomegaly Auscultation: normal bowel sounds Skin General skin exam: no rashes or lesions noted and dry skin Neuro General: oriented to person, oriented to place and oriented to time Cranial nerves: Yes Equal, round and reactive pupils present Speech: No Abnormal speech present Gait exam (Neuro): Normal gait present Motor exam (neuro): no tremor noted Extrem Right upper extremity: full ROM Left upper extremity: full ROM Right lower extremity: full ROM; no edema Left lower extremity: full ROM; no edema Psych Mental Status: mental status grossly normal Speech and movement: Normal speech and movement present Affect: normal affect Attitude: cooperative Thought process: Normal thought process present Assessment and Plan Assessment & Plan (1) Sinusitis: Code(s): J32.9 - Chronic sinusitis, unspecified Qualifiers: Chronicity: subacute Sinusitis location: frontal Qualified Code(s): J01.10 - Acute frontal sinusitis, unspecified Plan: Patient still feels she is dealing with an upper respiratory infection. Unclear she was on antibiotics a few months back. Will supply patient with Augmentin (2) Lumbar radiculitis: Code(s): M54.16 - Radiculopathy, lumbar region Plan: Patient did have CT of abdomen pelvis which did note some pretty severe lumbar spine stenosis. She does not believe that her pelvic symptoms are coming from her back. Did offer physical therapy though is considering at this time. She continues to be in moderate to severe pain that causing some disability and we did discuss using pain medication on as needed basis which he agrees with. (3) Esophagitis: Code(s): K20.90 - Esophagitis, unspecified without bleeding Plan: During ERCP she was found to have erosive esophagitis. Was to start omeprazole though unclear if she has started this medication. Will give a new script of omeprazole 30 mg and advised to take 20 minutes before eating breakfast Medications: New amoxicillin-pot clavulanate 875-125 mg 1 tab PO BID 7 days 14 tabs 0RF J01.10 - Acute frontal sinusitis, unspecified tramadol 50 mg PO Q8H 7 days PRN 21 tabs 0RF pain M25.551 - Pain in right hip, M25.552 - Pain in left hip Changed From omeprazole 20 mg PO DAILY@0630 0 caps 0RF K20.90 - Esophagitis, unspecified without bleeding To omeprazole 20 mg PO DAILY@0630 90 days 90 caps 1RF K20.90 - Esophagitis, unspecified without bleeding Coding Level of Care Code Est Pt Level 4 (90308) Diagnoses Subacute frontal sinusitis J01.10 Chronicity: subacute Sinusitis location: frontal Lumbar radiculitis M54.16 Esophagitis K20.90
[2023-12-03 13:53] VITALS: BP 152/78; PULSE 82; O2SAT 97; BMI 30.2
== END 2023-12-03 14:40 | disposition home or self-care (01) ==
PROVIDERS: PCP Physician Assistant; Visit Provider Physician Assistant
DX: J01.10 Acute frontal sinusitis, unspecified (principal); M54.16 Radiculopathy, lumbar region; K20.90 Esophagitis, unspecified without bleeding
CPT/HCPCS: 99214

== ENCOUNTER 2023-12-26 12:38 | Outpatient (AMB) | payer MEDICARE, SELFPAY ==
--- NOTE | 2023-12-26 12:59 | A.OFFPC_ITS ---
Vital Signs 3 12/26/23 13:05 Height 5 ft 4 in Weight 169 lb 12.095 oz BMI 29.1 BP 120/62 Blood Pressure Location Lt brachial Position Sitting Pulse 88 Pulse Source Pulse Oximeter Pulse Oximetry (%) 95 Oxygen Delivery Method Room Air Intake Visit Reasons: f/u hip pain /sinus infection Front Desk Coordinator Required: No Accompanied by: Daughter Allergies No Known Allergies Allergy (Mild, Verified 12/26/23 13:07) NKA Medication List - Last Reconciled 12/26/23 by Silvio Setphens PA-C blood-glucose meter (OneTouch Ultra2 Meter) As directed calcium carbonate 500 mg PO DAILY cholecalciferol (vitamin D3) 50 mcg PO DAILY CPAP (CPAP Machine/Device) As directed-Auto setting 8-20, heated tube and humidification fluticasone propionate 50 mcg/actuation 2 sprays intranasal DAILY PRN folic acid 1 mg PO DAILY lancets Test blood sugar once a day levothyroxine 125 mcg PO DAILY lisinopril 5 mg PO DAILY magnesium oxide 250 mg PO DAILY metformin 500 mg PO DAILY omeprazole 20 mg PO DAILY@0630 90 days OneTouch Ultra Test (blood sugar diagnostic) test blood sugar once a day NS rosuvastatin 10 mg PO DAILY tramadol 50 mg PO Q8H PRN 7 days zolpidem (Ambien) 10 mg PO BEDTIME 30 days Tobacco use date assessed: 07/04/23 Fall risk assessment: No Falls in past year Last assessed Fall Risk: 12/26/23 Dental Screening Dental Screen Date: 10/03/23 HPI f/u hip pain /sinus infection 2 HPI0 Details atient is an 83-year-old female here today for a follow-up visit. Patient is a 83-year-old female past medical history significant for type 2 diabetes mellitus, hypertension, hypothyroidism, vitamin B12 deficiency, CKD, hyperlipidemia, moderate aortic stenosis, history of rectal cancer and status post permanent colostomy. . At last visit we did discuss patient's sinus congestion and had pain and was started on Augmentin. She does report feeling little better. Does take a daily allergy medication. 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 This is likely the reason for her lower lumbar spine pain in weakness in her legs. She has been given tramadol 50 mg to use on a p.r.n. basis for pain which she reports it has been helpful per Still is able to ambulate with walker assistance. PLAN: Will try to set patient up for physical therapy to work on balance and lower extremity strengthening. Also will refer to pain management for possible evaluation for pain reduction modality. .. Type 2 diabetes: Has been fairly well controlled with p.o. medication. Needs new script diabetic shoes PFSH Medical History Aortic stenosis Heart murmur CKD (chronic kidney disease) stage 3, GFR 30-59 ml/min Vitamin D deficiency Vitamin B 12 deficiency Poor balance Hypothyroidism HTN (hypertension) DM type 2 (diabetes mellitus, type 2) Surgical History S/P repair of inguinal hernia Hx of decompressive lumbar laminectomy H/O: hysterectomy S/P colon resection Family History Father Prostate cancer Mother Hypertension Social History Household Members: None Household Members Other:: lives alone, does not drive, no children Housing: Apartment Housing Other:: [facility] Do you presently have visiting nurse or other home services: No Alcohol intake: never Patient Tobacco Use Status: Never used Tobacco e-Cigarette/Vaping Use: Never Used Second Hand Smoke Exposure: No Advance Directives Date on File: 10/19/23 service: No Current occupational status: retired Cognitive needs: Yes (walker ) Hearing needs: No Vision needs: Yes (glasses) Questionnaire Thrive Questionnaire Date Thrive assessed: 10/19/23 MUMTAZ-7 AMB Questionnaire MUMTAZ-7 Date MUMTAZ - 7 assessed: 07/04/23 Source: Developed by Drs. Lazarus Mathis, Jaqueline Leavitt, Finn Delgado and colleagues, with an educational atif from [employer]. Review of Systems Const Denies headache(s) Eyes Denies loss of vision ENT Denies vertigo, Denies dizziness, Denies headache(s) and Denies sore throat Card Denies chest pain, Denies leg edema and Denies lightheadedness Resp Denies cough, Denies hemoptysis and Denies wheezing GI Denies abdominal pain, Denies melena, Denies constipation, Denies diarrhea and Denies vomiting Denies urinary frequency, Denies dysuria and Denies urinary urgency Musc Reports back pain, Reports arthralgias, Denies joint swelling, Reports muscle weakness, Denies numbness and Denies tingling Neuro Denies Abnormal speech present, Denies behavioral changes, Denies vertigo, Denies dizziness, Denies headache(s), Denies loss of vision, Denies memory loss, Denies numbness and Denies tingling Psych Denies anxiety, Denies behavioral changes, Denies depression, Denies memory loss and Denies panic attacks Eulogio/Lymph Denies easy bleeding and Denies easy bruising Aller/Immun Denies wheezing Physical exam (Primary Care) Vital Signs: Last Vital Signs Pulse 88 12/26/23 13:05 BP 120/62 12/26/23 13:05 Pulse Ox 95 12/26/23 13:05 Oxygen Delivery Method Room Air 12/26/23 13:05 BMI result Body Mass Index 29.1 Tobacco/Smoking Status: Tobacco use Status Tobacco use date assessed 07/04/23 12/26/23 13:00 Patient Tobacco Use Status Never used Tobacco 12/26/23 13:00 e-Cigarette/Vaping Use Never Used 12/26/23 13:00 Thrive Assessment: Date of Thrive Assessment Date Thrive assessed 10/19/23 12/26/23 13:00 Const General: healthy appearing, no acute distress, alert and awake Nutritional Appearance: well nourished Orientation/consciousness: oriented to person, oriented to place and oriented to time HENMT Ears: TM's normal bilaterally General nose exam: Normal nasal mucous membranes and turbinates present Eyes Conjunctivae: conjunctivae normal Sclerae: sclerae normal Pupils: Equal, round and reactive pupils present Neck Neck: Yes no lymphadenopathy and Yes no JVD Thyroid: Thyroid normal Carotids: no bruits Resp Effort & Inspection: normal respiratory effort and not tachypneic Auscultation: no crackles, no rales, no rhonchi and no wheezes Cardio Rate: regular rate Rhythm: regular rhythm Heart sounds: no murmurs and normal S1 and S2 GI Palpation (GI): Soft to palpation, nontender, no hepatomegaly and no splenomegaly Auscultation: normal bowel sounds Back/Spine/Pelvis Other: LIMITED RANGE OF MOTION OF THE LUMBAR SPINE DUE TO PAIN AND STIFFNESS. AMBULATING WITH WALKER ASSISTANCE Skin General skin exam: no rashes or lesions noted and dry skin Neuro General: oriented to person, oriented to place and oriented to time Cranial nerves: Yes Equal, round and reactive pupils present Speech: No Abnormal speech present Gait exam (Neuro): Normal gait present Motor exam (neuro): no tremor noted Extrem Right upper extremity: full ROM Left upper extremity: full ROM Right lower extremity: full ROM; no edema Left lower extremity: full ROM; no edema Ankle/foot/toe images: 2 1. BILATERAL FEET WITHOUT ANY SKIN BREAKDOWN CALLUS FORMATIONS. GOOD SENSATION TO LIGHT TOUCH OVER THE PLANTAR DISTAL REGIONS. Psych Mental Status: mental status grossly normal Speech and movement: Normal speech and movement present Affect: normal affect Attitude: cooperative Thought process: Normal thought process present Assessment and Plan Assessment & Plan (1) Lumbar radiculitis: Code(s): M54.16 - Radiculopathy, lumbar region Plan: Patient did have CT of abdomen pelvis which did note some pretty severe lumbar spine stenosis. She does not believe that her pelvic symptoms are coming from her back. Did offer physical therapy though is considering at this time. She continues to be in moderate to severe pain that causing some disability and we did discuss using pain medication on as needed basis which he agrees with. Continues with the need for a walker for ambulation. She is now willing to speak with pain management and do physical therapy for her lower extremity weakness and balance. (2) Sinusitis: Code(s): J32.9 - Chronic sinusitis, unspecified Qualifiers: Chronicity: subacute Sinusitis location: frontal Qualified Code(s): J 01.10 - Acute frontal sinusitis, unspecified Plan: Has tried Augmentin and reports she feels a little bit better. Does do daily allergy medication. Advised on trying additional nasal spray (3) DM type 2 (diabetes mellitus, type 2): Code(s): E11.9 - Type 2 diabetes mellitus without complications Qualifiers: Diabetes mellitus complication status: with hyperglycemia Diabetes mellitus jail insulin use: without jail use Qualified Code(s): E11.65 - Type 2 diabetes mellitus with hyperglycemia Plan: Patient's type 2 diabetes well controlled with current dose of metformin 500 mg. Goal A1c is to remain below 7.5 due to patient's age and comorbidities. Needs new script for diabetic shoes- foot exam appropriate today Orders: Orders 2 PT Evaluation and Treatment 12/26/23 M51.9 - Unspecified thoracic, thoracolumbar and lumbosacral intervertebral disc disorder, M54.16 - Radiculopathy, lumbar region AMB Hemoglobin A1c 12/26/23 E11.65 - Type 2 diabetes mellitus with hyperglycemia Referrals 2 Pain Management Referral M54.16 - Radiculopathy, lumbar region Medications: New 2 miscellaneous medical supply NEED FOR DIABETIC SHOE- SIZED TO FIT 1 ea miscellaneous DAILY 2 ea 0RF 99 days E11.65 - Type 2 diabetes mellitus with hyperglycemia, M62.421 - Contracture of muscle, right upper arm losartan 25 mg PO DAILY 90 tabs 1RF 90 days I10 - Essential (primary) hypertension Changed 2 From tramadol 50 mg PO Q8H 7 days PRN 21 tabs 0RF pain M25.551 - Pain in right hip, M25.552 - Pain in left hip To tramadol 50 mg PO Q8H 21 tabs 2RF pain 7 days M25.551 - Pain in right hip, M25.552 - Pain in left hip From fluticasone propionate 50 mcg/actuation 2 sprays intranasal DAILY PRN Congestion J01.10 - Acute frontal sinusitis, unspecified To fluticasone propionate 50 mcg/actuation 2 sprays intranasal DAILY 16 grams 1RF Congestion 30 days J01.10 - Acute frontal sinusitis, unspecified Refilled 2 zolpidem (Ambien) 10 mg PO BEDTIME 30 tabs 2RF 30 days G47.00 - Insomnia, unspecified Discontinued 2 lisinopril Discontinued Reason: Doctor's Order 5 mg PO DAILY 90 tabs 3RF Coding Level of Care Code Est Pt Level 4 (33771) Diagnoses Lumbar radiculitis M54.16 Subacute frontal sinusitis J01.10 Chronicity: subacute Sinusitis location: frontal Type 2 diabetes mellitus with hyperglycemia, without long-term current use of insulin E11.65 Diabetes mellitus complication status: with hyperglycemia Diabetes mellitus moth exterminator insulin use: without moth exterminator use
[2023-12-26 13:05] VITALS: BP 120/62; PULSE 88; O2SAT 95; BMI 29.1
== END 2023-12-26 13:42 | disposition home or self-care (01) ==
PROVIDERS: PCP Physician Assistant; Visit Provider Physician Assistant
DX: M54.16 Radiculopathy, lumbar region (principal); J01.10 Acute frontal sinusitis, unspecified; E11.65 Type 2 diabetes mellitus with hyperglycemia
CPT/HCPCS: 99214